=== PATIENT | female | born 1950 | race Caucasian/White ===

== ENCOUNTER 2019-01-23 09:11 | Inpatient (IN) | payer OTHER ==
--- NOTE | 2019-01-23 09:29 | PDOC ---
History of Present Illness - General History Source: Patient Exam Limitations: No Limitations - History of Present Illness Initial Comments: Mary Ellen Garcia is a 68 yo morbidly obese F w a pmh of NIDDM, gastric bypass in 2002, and 1 asymptomatic gallstone and kidney stone, who presents to the [facility] er because she has been experiencing epigastric and RUQ abdominal pain since 5: 30 am this morning. She states she also has been nauseous and vomited twice since she woke up. She describes her vomit as whitish in appearance. There was no blood or bile in the vomitus. Patient denies any fevers or chills. Said she had a normal bowel movement this morning without any diarrhea or constipation. Denies decreased PO intake or recent travel. She states she experienced this abdominal pain 3 days ago earlier this week but is unsure whether eating food precipitates this pain. Patient states she recently had both a colonoscopy and an endoscopy performed where they took out two polyps but was otherwise unremarkable. PCP: Mell Rosales GI: Dr. Greco PSH: Gastric bypass, hysterectomy, b/l knee replacements, hip replacement, tonsillectomy Allergies: NKA, NKDA Social Hx: Denies smoking, drinking, or other substance usage. <Juan Cardoso - Last Filed: 01/23/19 18:32> <Lluvia Frank - Last Filed: 01/24/19 21:57> - General Chief Complaint: Pain Stated Complaint: ABD PAIN Time Seen by Provider: 01/23/19 09:18 Past History <Juan Cardoso - Last Filed: 01/23/19 18:32> <Lluvia Frank - Last Filed: 01/24/19 21:57> - Past Medical History Allergies/Adverse Reactions: Allergies Allergy/AdvReac Type Severity Reaction Status Date / Time aspirin AdvReac Mild Verified 01/23/19 09:53 oxycodone [From Percocet] AdvReac Mild Verified 01/23/19 09:53 Home Medications: Ambulatory Orders Allopurinol 300 mg PO DAILY 01/23/19 Alprazolam [Xanax] 0.5 mg PO PRN PRN 01/23/19 Baclofen 10 mg PO PRN PRN 01/23/19 Celecoxib [Celebrex] 200 mg PO DAILY 01/23/19 Famotidine [Pepcid] 40 mg PO DAILY 01/23/19 Gabapentin 300 mg PO QID 01/23/19 Hydrocodone/Acetaminophen [Hydrocodone-Acetamin 5-325 mg] 1 each PO PRN PRN 07/09 Magnesium Oxide [Magnesium] 1,000 mg PO PRN PRN 01/23/19 Metformin HCl [Glucophage] 1,000 mg PO AM 01/23/19 Metformin HCl [Glucophage] 500 mg PO DAILY 01/23/19 Metoclopramide HCl [Reglan] 5 mg PO TID 01/23/19 Omeprazole 20 mg PO DAILY 01/23/19 Sitagliptin Phosphate [Januvia] 50 mg PO DAILY 01/23/19 Zolpidem Tartrate 10 mg PO HS PRN 01/23/19 Review of Systems - Review of Systems Able to Perform ROS?: Yes Comments:: CONSTITUTIONAL: Absent: fever, no chills, no fatigue EYES: Absent: visual changes ENT: Absent: ear pain, no sore throat CARDIOVASCULAR: Absent: chest pain, no palpitations RESPIRATORY: Absent: cough, no SOB GI: Present: Abdominal pain, nausea, vomiting Absent: no constipation, no diarrhea GENITOURINARY: Absent: dysuria, no frequency, no hematuria MUSKULOSKELETAL: Absent: back pain, no arthralgia, no myalgia SKIN: Absent: rash NEURO: Absent: headache <Juan Cardoso - Last Filed: 01/23/19 18:32> *Physical Exam - Physical Exam Comments: GENERAL: Morbidly obese. Well-appearing, well-nourished. No apparent distress. HEENT: Normocephalic, atraumatic. PERRL, EOM intact. CARDIOVASCULAR: Normal S1, S2. Regular rate and rhythm. PULMONARY: No evidence of respiratory distress. Lungs clear to auscultation bilaterally. No wheezing, rales or rhonchi. ABDOMEN: There is both epigastric and RUQ TTP. Abdomen is soft, non-distended, and has normal bowel sounds without rebound or guarding.\ EXTREMITIES: Normal ROM in all four extremities. No gross deformities. SKIN: Warm, dry. No rash NEUROLOGICAL: No focal neurological deficits. <Juan Cardoso - Last Filed: 01/23/19 18:32> - Vital Signs Last Vital Signs Temp Pulse Resp BP Pulse Ox 97.9 F 86 19 122/62 99 01/24/19 11:05 01/24/19 11:05 01/24/19 11:05 01/24/19 11:05 01/24/19 20:11 <Lluvia Frank - Last Filed: 01/24/19 21:57> ED Treatment Course - LABORATORY CBC & Chemistry Diagram: 01/23/19 09:52 01/23/19 09:52 - RADIOLOGY Radiograph Interpretation: CTAP: HISTORY PROVIDED: Rule out obstruction versus hernia. Sequential axial images were obtained from the domes of the diaphragms through the symphysis pubis following the administration of both oral and intravenous contrast material. The lung bases are clear. The liver is normal in size. It is markedly hypodense in texture consistent with diffuse fatty infiltration. No mass lesions are identified within the liver. There is a 1.7 cm calcification within the right renal pelvis at the UPJ consistent with a partially obstructing calculus. Additional 8 and 3 mm calculi are noted within the right collecting system. There are multiple calcifications within the left upper collecting system. The largest of these measures 1.9 cm within the pelvis. There is no evidence of left-sided hydronephrosis. There is a moderate degree of hydronephrosis associated with this stone. The spleen, pancreas and adrenal glands demonstrate no significant abnormalities. Small calculi/ sludge is identified within the gallbladder. There is no evidence of intra-abdominal or retroperitoneal lymphadenopathy or fluid collections. There is a fat-containing umbilical hernia present. There is no evidence of pneumoperitoneum, bowel obstruction or intraluminal abdominal abscess There is no CT evidence of acute appendicitis or diverticulitis. Examination of the pelvis demonstrates no evidence of pelvic masses, fluid collections or lymphadenopathy. There is no evidence of acute bony pathology. The patient is S/P total right hip replacement. IMPRESSION: 1. Extensive diffuse fatty infiltration of the liver. 2. 1.7 cm right UPJ calculus with moderate hydronephrosis. 3. Additional bilateral nephrolithiasis with no evidence of left-sided obstructive uropathy. 4. Possible cholelithiasis. 5. Fat-containing umbilical hernia. 6. No evidence of bowel obstruction. Please see above discussion. <Juan Cardoso - Last Filed: 01/23/19 18:32> - LABORATORY CBC & Chemistry Diagram: 01/24/19 06:20 01/24/19 06:20 - ADDITIONAL ORDERS Additional order review: 01/23/19 09:52 RBC 4.82 MCV 81.6 MCHC 31.6 L RDW 17.8 H MPV 9.5 Neutrophils % 85.4 H Lymphocytes % 8.1 Monocytes % 5.4 Eosinophils % 0.4 Basophils % 0.7 - Medications Given in the ED: ED Medications Discontinued Medications Generic Name Dose Route Start Last Admin Trade Name Freq PRN Reason Stop Dose Admin Acetaminophen 1,000 mg 01/23/19 09:33 01/23/19 10:22 Ofirmev Injection - IVPB 01/23/19 09:34 1,000 mg ONCE ONE Administration Acetaminophen 650 mg 01/23/19 16:57 01/24/19 04:44 Tylenol - PO 650 mg Q6H PRN Administration PAIN LEVEL 7 - 10 Acetaminophen/Codeine Phosphate 1 tab 01/23/19 17:22 01/23/19 23:31 Tylenol # 3 - PO 1 tab Q6H PRN Administration PAIN LEVEL 7 - 10 Al Hydroxide/Mg Hydroxide 30 ml 01/23/19 09:34 01/23/19 10:23 Mylanta Suspension - PO 01/23/19 09:35 30 ml ONCE ONE Administration Alprazolam 0.5 mg 01/23/19 22:00 01/23/19 21:56 Xanax - PO 0.5 mg BID YADIRA Administration Amlodipine Besylate 5 mg 01/23/19 18:00 01/23/19 18:32 Norvasc - PO 5 mg DAILY YADIRA Administration Famotidine/Sodium Chloride 20 mg in 50 mls @ 100 mls/hr 01/23/19 09:33 11:00 Pepcid 20 Mg Premixed Ivpb - IVPB 01/23/19 10:02 100 mls/hr ONCE ONE Administration Sodium Chloride 1,000 mls @ 1,000 mls/hr 01/23/19 09:33 01/23/19 10:22 Normal Saline - IV 01/23/19 10:32 1,000 mls/hr ASDIR STA Administration Levofloxacin 500 mg in 100 mls @ 100 mls/hr 01/23/19 14:34 01/23/19 15:33 Levaquin 500 Mg Premixed Ivpb - IVPB 01/23/19 15:33 100 mls/hr ONCE ONE Administration Protocol Levofloxacin 500 mg in 100 mls @ 100 mls/hr 01/24/19 08:00 01/24/19 07:39 Levaquin 500 Mg Premixed Ivpb - IVPB 100 mls/hr DAILY@0800 YADIRA Administration Protocol Sodium Chloride 1,000 mls @ 75 mls/hr 01/23/19 17:00 01/23/19 18:32 1/2 Normal Saline IV 75 mls/hr ASDIR YADIRA Administration Ondansetron HCl 4 mg 01/23/19 09:33 01/23/19 10:23 Zofran Injection IVPUSH 01/23/19 09:34 4 mg ONCE ONE Administration Sodium Chloride 1,000 ml 01/23/19 13:44 01/23/19 13:51 Normal Saline - IV 01/23/19 13:45 1,000 ml ONCE ONE Administration Tamsulosin HCl 0.4 mg 01/23/19 14:51 01/23/19 15:33 Flomax - PO 01/23/19 14:52 0.4 mg ONCE ONE Administration Zolpidem Tartrate 5 mg 01/23/19 17:12 01/23/19 23:32 Ambien - PO 5 mg HS PRN Administration INSOMNIA <Lluvia Frank - Last Filed: 01/24/19 21:57> Medical Decision Making - Medical Decision Making Mary Ellen Garcia is a 68 yo morbidly obese F w a pmh of NIDDM, gastric bypass in 2002, and 1 asymptomatic gallstone and kidney stone, who presents to the [facility] er because she has been experiencing epigastric and RUQ abdominal pain since 5: 30 am this morning. She states she also has been nauseous and vomited twice since she woke up. She describes her vomit as whitish in appearance. There was no blood or bile in the vomitus. Patient denies any fevers or chills. Said she had a normal bowel movement this morning without any diarrhea or constipation. Denies decreased PO intake or recent travel. She states she experienced this abdominal pain 3 days ago earlier this week but is unsure whether eating food precipitates this pain. Patient states she recently had both a colonoscopy and an endoscopy performed where they took out two polyps but was otherwise unremarkable. Vital Signs Temp Pulse Resp BP Pulse Ox 98.4 F 73 20 178/79 H 99 01/23/19 09:15 01/23/19 09:15 01/23/19 09:15 01/23/19 09:15 01/23/19 09:15 DDx IBNLT: biliary colic vs cholecystitis, renal colic, UTI/Pylo, PUD/GERD, gastritis, pancreatitis, gastroenteritis, electrolyte/metabolic disturbance, ACS /ND Plan: Labs, Urine, IV hydration, analgesia, bedside POCUS, ekg, re-assess EKG: NS rate of 75, Wide complex QRS of 126, LAD, non-specific intraventricular block, no hypertrophy, downsloping ST segments in 1 and aVL with TWI's in 1 and aVL, inferior infarct age undetermined, anterolateral infarct age undetermined. no other abnormal TWI's. All these are unchanged from 04/09 - Called up patient's primary physician and had an old EKG from 04/01/18 which shows an almost identical EKG. Labs: leukocytosis, VINH Urine: 3+ blood, no LE or nitrite US: unremarkable. Limited exam secondary to habitus. CTAP: Right sided 1.7 cm obstructing kidney stone with hydronephritis Re-assessment: Patient's pain is well controlled after tylenol. - Patient has an VINH with an obstructing stone Urology consult: Dr. Lundberg - is aware of patient and requests for patient to be NPO after midnight. Levaquin for Abx. Will try to stent the patient tmrw AM Disposition: Admit to hospital <Juan Cardoso - Last Filed: 01/23/19 18:32> Discharge - Discharge Information Problems reviewed: Yes - Admission Yes <Juan Cardoso - Last Filed: 01/23/19 18:32> - Admission Yes <Lluvia Frank - Last Filed: 01/24/19 21:57> - Discharge Information Clinical Impression/Diagnosis: Hydronephrosis with renal calculous obstruction Condition: Stable
[2019-01-23 09:32] VITALS: BMI 52.9
[2019-01-23] MEDS ORDERED: ACETAMINOPHEN 1000 MG/100 ML VIAL (NON FORMULARY) IVPB ONE (09:33)
[2019-01-23] MEDS ORDERED: SODIUM CHLORIDE 1,000 ML IV STA (09:33)
[2019-01-23] MEDS ORDERED: FAMOTIDINE 20 MG/50 ML IVPB 20 MG/50 ML MG IVPB ONE ×2 (09:33→10:54)
[2019-01-23] MEDS ORDERED: ONDANSETRON 4 MG/2 ML VIAL IVPUSH ONE (09:33)
[2019-01-23] MEDS ORDERED: MAG HYDROX/AL HYDROX/SIMETH -MYLANTA- ORAL SUSPENSION PO ONE (09:34)
--- NOTE | 2019-01-23 09:38 | PDOC ---
Attending Attestation - Resident Resident Name: Juan Cardoso - ED Attending Attestation I have performed the following: I have examined & evaluated the patient, The case was reviewed & discussed with the resident, I agree w/resident's findings & plan - HPI HPI: 01/23/19 09:41 68 YOF with obesity, NIDDM, nephrolithiasis, gallstone, samreen en y gastric bypass (2002) presenting with acute onset of diffuse abdominal pain since this morning at 5am that woke her up from sleep. AP described as gnawing, that radiates from lower abdomen to upper abdomen and back. 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 ate artichoke last night yesterday afternoon had onion rings and mac and cheese no v/d, f/c. no sick contacts or travel no prior history of similar sx. last EGD and colonoscopy ~2 months ago, which was unremarkable except for polyps. 01/23/19 10:04 - Physicial Exam PE: 01/23/19 09:41 Agree with the resident's HPI and PE as documented in the electronic medical record. NAD, well appearing, EOMI, PERRL, dry membranes, nl conjunctiva, anicteric; neck supple. lungs clear, RRR, abdomen soft morbidly obese, nontender. neg juarez's, neg mcburney's point tenderness, no cvat. Back nontender. THOMPSON x4, no focal neuro deficits. No peripheral edema. normal color for ethnicity, WWP. 01/23/19 09:41 01/23/19 10:11 - Medical Decision Making 01/23/19 09:41 See HPI for details. Prior notes reviewed, including admissions, discharges and consultations. Vital signs reviewed, wnl. Vital Signs Temp Pulse Resp BP Pulse Ox 98.4 F 73 20 178/79 H 99 01/23/19 09:15 01/23/19 09:15 01/23/19 09:15 01/23/19 09:15 01/23/19 09:15 DDx abdominal pain: Renal colic, biliary colic, metabolic/electrolyte derangements. GERD, PUD, esophageal spasm, pancreatitis, hepatitis, constipation , colitis, gastroenteritis, cholecystitis, UTI, pyelonephritis, ileus, SBO, medication side effect, hernia, appendicitis, diverticulitis internal hernia, mesenteric ischemia, mesenteric adenitis. laboratory results and imaging reviewed, basic labs and lytes wnl, LFTs/lipase_wnl UA_neg for infection, small blood Cardiac panel_neg, reassuring EKG normal sinus rhythm at 75 bpm, left axis deviation., no interval abnormalities, wide QRS, partial LBBB, poor R wave progression, ST and T wave segments and morphology normal. Nonspecific T wave abnormalities - no prior visits ED course -interventions: IVF, GI cocktail, analgesia, reassess - pain out of proportion to exam, screening lactic CT A/p PO and IV contrast to assess for intra abdominal infection/inflammation. CT scan with IV contrast indicated The patient has been educated on the risks and benefits of exam including nephrotoxicity/renal injury and organ failure. Hydration with IV fluids Consent form signed for the iodinated contrast. GFR 44-31 can receive IV contrast CT results: rt UPJ stone 1.7 mm with moderate hydro IVF, flomax for prox stone uro cs Dr Lundberg evp operations admit for obstructed stone/hydro, likely operative management admit to primary doctor 01/24/19 21:57 Heart Score/ECG Review #1 ECG reviewed & interpreted by me at: 09:30 General ECG Interpretation: Sinus Rhythm, Normal Rate, Normal Intervals Compared to previous ECG there are: Previous ECG unavail 01/23/19 09:43 EKG normal sinus rhythm at 75 bpm, left axis deviation., no interval abnormalities, wide QRS, partial LBBB, poor R wave progression, ST and T wave segments and morphology normal. Nonspecific T wave abnormalities - no prior visits
[2019-01-23 10:14] LABS: BASO % 0.7 % (0-2.0); EOS % 0.4 % (0-4.5); HEMATOCRIT 39.3 % (32.4-45.2); HEMOGLOBIN 12.4 GM/dL (10.7-15.3); LYMPH % 8.1 % (8-40); MCH 25.8 pg (25.7-33.7); MCHC 31.6 g/dl (32.0-36.0); MEAN CELL VOLUME 81.6 fl (80-96); MEAN PLT VOLUME 9.5 fl (7.5-11.1); MONO % 5.4 % (3.8-10.2); NEUT % 85.4 % (42.8-82.8); PLATELET COUNT 278 K/MM3 (134-434); RBC 4.82 M/mm3 (3.60-5.2); RDW 17.8 % (11.6-15.6); WHITE BLOOD COUNT 11.7 K/mm3 (4.0-10.0)
[2019-01-23] MEDS ORDERED: MAG HYDROX/AL HYDROX/SIMETH 30 ML UNIT-DOSE CUP ONE (10:15)
[2019-01-23] MEDS ORDERED: ONDANSETRON 4 MG/2 ML VIAL ONE (10:15)
[2019-01-23 10:49] LABS: ALBUMIN 3.8 g/dl (3.4-5.0); BILIRUBIN,TOTAL 0.7 mg/dL (0.2-1); BLOOD UREA NITROGEN 20.4 mg/dL (7-18); CALCIUM 8.9 mg/dL (8.5-10.1); CREATININE 1.4 mg/dL (0.55-1.3); TOT PROT 6.7 g/dl (6.4-8.2)
[2019-01-23 11:53] LABS: EPI CELLS 12.7 /HPF (0-5/HPF); URINE APPEARANCE CLOUDY; URINE BACTERIA 289.3 /hpf (NEGATIVE); URINE BILIRUBIN NEGATIVE (NEGATIVE); URINE COLOR YELLOW; URINE GLUCOSE (UA) NEGATIVE (NEGATIVE); URINE KETONE NEGATIVE (NEGATIVE); URINE LEUK ESTERASE NEGATIVE (NEGATIVE); URINE NITRITE NEGATIVE (NEGATIVE); URINE PROTEIN 2+ (NEGATIVE); URINE UROBILINOGEN 0.2 mg/dL (0.2-1.0); URINE WBC 7 /hpf (0-5)
[2019-01-23] MEDS ORDERED: KETOROLAC TROMETHAMINE 30 MG/1 ML VIAL IVPUSH ONE (11:55)
[2019-01-23 13:03] LABS: HYALINE CASTS 0 /lpf (0-8); YEAST NONE SEEN (NEGATIVE)
[2019-01-23] MEDS ORDERED: SODIUM CHLORIDE 0.9% 500 ML INFUS.BAG IV ONE (13:44)
--- NOTE | 2019-01-23 14:34 | EKG ---
Test Reason : Blood Pressure : / mmHG Vent. Rate : 075 BPM Atrial Rate : 075 BPM P-R Int : 178 ms QRS Dur : 126 ms QT Int : 392 ms P-R-T Axes : 057 -45 115 degrees QTc Int : 437 ms POOR DATA QUALITY, INTERPRETATION MAY BE ADVERSELY AFFECTED NORMAL SINUS RHYTHM LEFT AXIS DEVIATION NON-SPECIFIC INTRA-VENTRICULAR CONDUCTION BLOCK INFERIOR INFARCT , AGE UNDETERMINED ANTEROLATERAL INFARCT , AGE UNDETERMINED ABNORMAL ECG NO PREVIOUS ECGS AVAILABLE Confirmed by SUSAN ALMARAZ MD ([id number]) on 01/23/2019 2:34:10 PM Referred By: Confirmed By:SUSAN ALMARAZ MD
[2019-01-23] MEDS ORDERED: TAMSULOSIN HCL 0.4 MG CAP PO ONE (14:51)
[2019-01-23] MEDS ORDERED: TAMSULOSIN HCL 0.4 MG CAP ONE (15:10)
[2019-01-23] MEDS ORDERED: oxyCODONE HCL 5 MG TABLET PO PRN (16:57)
[2019-01-23] MEDS ORDERED: ACETAMINOPHEN 325 MG TABLET (FP) PO PRN (16:57)
[2019-01-23] MEDS ORDERED: SODIUM CHLORIDE 0.45% 1,000 ML IV SCH (17:00)
[2019-01-23] MEDS ORDERED: ONDANSETRON 4 MG/2 ML VIAL IVPB PRN (17:02)
--- NOTE | 2019-01-23 17:08 | HP ---
Admitting History and Physical - Admission History Source: Patient Limitations to Obtaining History: No Limitations - Past Medical History Cardiovascular: Yes: Other (left bundle branch block) Renal/: Yes: Renal Calculi (known history-has had transcutaneous stone removal over 15 yrs ago) Musculoskeletal: Yes: Chronic low back pain, Other (ostearthritis) Endocrine: Yes: Diabetes Mellitus, Other (obesity) - Past Surgical History Past Surgical History: Yes: Cataract Removal (bilateral 2016), Hysterectomy ( BSO 1995 endometrial hyperplasia), Joint Replacement (left knee 2014 right total hip replacement 2014-postop dropped foot), Tonsillectomy Additional Past Surgical History: Gastric bypass surgery 2001 - Advance Directives Advance Directives: Yes: DNR - Smoking History Smoking history: Former smoker Have you smoked in the past 12 months: No If you are a former smoker, when did you quit?: over 20 yrs ago - Alcohol/Substance Use Hx Alcohol Use: No - Social History Usual Living Arrangement: Yes: Alone ADL: Independent History of Recent Travel: No Home Medications - Allergies Allergies/Adverse Reactions: Allergies Allergy/AdvReac Type Severity Reaction Status Date / Time aspirin AdvReac Mild Verified 01/23/19 09:53 oxycodone [From Percocet] AdvReac Mild Verified 01/23/19 09:53 - Home Medications Home Medications: Ambulatory Orders Allopurinol 300 mg PO DAILY 01/23/19 Alprazolam [Xanax] 0.5 mg PO PRN PRN 01/23/19 Baclofen 10 mg PO PRN PRN 01/23/19 Celecoxib [Celebrex] 200 mg PO DAILY 01/23/19 Famotidine [Pepcid] 40 mg PO DAILY 01/23/19 Gabapentin 300 mg PO QID 01/23/19 Hydrocodone/Acetaminophen [Hydrocodone-Acetamin 5-325 mg] 1 each PO PRN PRN 07/09 Magnesium Oxide [Magnesium] 1,000 mg PO PRN PRN 01/23/19 Metformin HCl [Glucophage] 1,000 mg PO AM 01/23/19 Metformin HCl [Glucophage] 500 mg PO DAILY 01/23/19 Metoclopramide HCl [Reglan] 5 mg PO TID 01/23/19 Omeprazole 20 mg PO DAILY 01/23/19 Sitagliptin Phosphate [Januvia] 50 mg PO DAILY 01/23/19 Zolpidem Tartrate 10 mg PO HS PRN 01/23/19 Review of Systems - Review of Systems Constitutional: denies: Fever, Loss of Appetite Eyes: reports: No Symptoms Cardiovascular: reports: No Symptoms Respiratory: reports: No Symptoms Gastrointestinal: reports: Abdominal Pain, Nausea Genitourinary: reports: Flank Pain. denies: Burning, Discharge, Dysuria Musculoskeletal: reports: Back Pain, Joint Pain Integumentary: reports: No Symptoms Neurological: reports: No Symptoms, Other (chronic right foot drop) Endocrine: reports: No Symptoms Hematology/Lymphatic: reports: No Symptoms Psychiatric: reports: No Symptoms Physical Examination Vital Signs: Vital Signs Temperature 98 F 01/23/19 16:01 Pulse Rate 77 01/23/19 16:01 Respiratory Rate 18 01/23/19 16:01 Blood Pressure 157/71 01/23/19 16:01 O2 Sat by Pulse Oximetry (%) 98 01/23/19 16:01 Constitutional: Yes: Well Nourished, Obese, Pallor Eyes: Yes: Conjunctiva Clear, EOM Intact HENT: Yes: Normocephalic Neck: Yes: Trachea Midline Cardiovascular: Yes: Regular Rate and Rhythm Respiratory: Yes: CTA Bilaterally Gastrointestinal: Yes: Normal Bowel Sounds, Soft, Abdomen, Obese. No: Tenderness, Rebound Renal/: Yes: CVA Tenderness - Right (very minimal) Musculoskeletal: Yes: Back Pain Extremities: Yes: WNL Edema: No Peripheral Pulses WNL: Yes Integumentary: Yes: WNL Neurological: Yes: WNL, Other (chr right foot drop otherwise intact) Psychiatric: Yes: WNL Labs: CBC, BMP 01/23/19 09:52 01/23/19 09:52 repeat lactic acid 1 Imaging - Results Cat Scan: Report Reviewed (1.7 cm right upj calculus with hydronephrosis) Problem List - Problems (1) Diabetes mellitus Code(s): E11.9 - TYPE 2 DIABETES MELLITUS WITHOUT COMPLICATIONS Qualifiers: Diabetes mellitus type: type 2 Diabetes mellitus intermodal dispatcher insulin use: without intermodal dispatcher use Diabetes mellitus complication status: without complication Qualified Code(s): E11.9 - Type 2 diabetes mellitus without complications (2) Obesity Code(s): E66.9 - OBESITY, UNSPECIFIED Qualifiers: Obesity type: due to excess calories Body mass index: BMI 50.0-59.9 (3) Hypertension Code(s): I10 - ESSENTIAL (PRIMARY) HYPERTENSION Qualifiers: Hypertension type: essential hypertension Qualified Code(s): I10 - Essential (primary) hypertension (4) Hydronephrosis with renal calculous obstruction Code(s): N13.2 - HYDRONEPHROSIS WITH RENAL AND URETERAL CALCULOUS OBSTRUCTION Assessment/Plan npo past midnight for cysto and stent placement iv levaquin pain control iv fluids add norvasc for bp control
[2019-01-23] MEDS ORDERED: ZOLPIDEM TARTRATE 5 MG TABLET PO PRN (17:12)
[2019-01-23] MEDS ORDERED: amLODIPine BESYLATE 5 MG TABLET (FP) PO SCH (18:00)
[2019-01-23] MEDS: ACETAMINOPHEN WITH CODEINE 300MG/30MG TABLET PO PRN ×2 (18:28→23:31)
[2019-01-23] MEDS ORDERED: ALPRAZolam 0.25 MG TABLET PO SCH (22:00)
[2019-01-24 07:03] LABS: BASO % 0.4 % (0-2.0); EOS % 0.8 % (0-4.5); HEMATOCRIT 34.8 % (32.4-45.2); HEMOGLOBIN 11.3 GM/dL (10.7-15.3); MCH 26.5 pg (25.7-33.7); MCHC 32.5 g/dl (32.0-36.0); MEAN CELL VOLUME 81.6 fl (80-96); MEAN PLT VOLUME 9.3 fl (7.5-11.1); MONO % 9.3 % (3.8-10.2); NEUT % 77.5 % (42.8-82.8); PLATELET COUNT 248 K/MM3 (134-434); RBC 4.26 M/mm3 (3.60-5.2); RDW 18.1 % (11.6-15.6); WHITE BLOOD COUNT 10.4 K/mm3 (4.0-10.0)
[2019-01-24] MEDS ORDERED: MIDAZOLAM HCL 2 MG/2 ML SINGLE DOSE VIAL ONE ×2 (08:04→08:33)
[2019-01-24 08:05] LABS: ALBUMIN 3.4 g/dl (3.4-5.0); BILIRUBIN,TOTAL 0.7 mg/dL (0.2-1); BLOOD UREA NITROGEN 18.8 mg/dL (7-18); CALCIUM 8.8 mg/dL (8.5-10.1); CREATININE 1.6 mg/dL (0.55-1.3); POTASSIUM 4.4 mmol/L (3.5-5.1)
[2019-01-24] MEDS ORDERED: SUCCINYLCHOLINE CHLORIDE 200 MG/10 ML SYRINGE ONE (08:05)
[2019-01-24] MEDS ORDERED: PROPOFOL 20 ML ONE ×2 (08:05)
--- NOTE | 2019-01-24 08:10 | CON.GU ---
Consult - History of Present Illness History of Present Illness: 68 yo female with prior h/o nephrolithiasis, now admitted with rt renal colic secondary to large obstructing rt UPJ stone. CT with 1.7cm rt UPJ stone with hydronephrosis. Had rt perc nephrolithotomy several yr ago at [facility] - Past Medical History Cardio/Vascular: Yes: Other (left bundle branch block) Renal/: Yes: Renal Calculi (known history-has had transcutaneous stone removal over 15 yrs ago) Musculoskeletal: Yes: Chronic low back pain, Other (ostearthritis) Endocrine: Yes: Diabetes Mellitus, Other (obesity) - Past Surgical History Past Surgical History: Yes: Cataract Removal (bilateral 2016), Hysterectomy ( BSO 1995 endometrial hyperplasia), Joint Replacement (left knee 2014 right total hip replacement 2014-postop dropped foot), Tonsillectomy - Alcohol/Substance Use Hx Alcohol Use: No - Smoking History Smoking history: Former smoker Have you smoked in the past 12 months: No If you are a former smoker, when did you quit?: over 20 yrs ago - Social History ADL: Independent History of Recent Travel: No Home Medications - Allergies Allergies/Adverse Reactions: Allergies Allergy/AdvReac Type Severity Reaction Status Date / Time aspirin AdvReac Mild Verified 01/23/19 09:53 oxycodone [From Percocet] AdvReac Mild Verified 01/23/19 09:53 - Home Medications Home Medications: Ambulatory Orders Allopurinol 300 mg PO DAILY 01/23/19 Alprazolam [Xanax] 0.5 mg PO PRN PRN 01/23/19 Baclofen 10 mg PO PRN PRN 01/23/19 Celecoxib [Celebrex] 200 mg PO DAILY 01/23/19 Famotidine [Pepcid] 40 mg PO DAILY 01/23/19 Gabapentin 300 mg PO QID 01/23/19 Hydrocodone/Acetaminophen [Hydrocodone-Acetamin 5-325 mg] 1 each PO PRN PRN 07/09 Magnesium Oxide [Magnesium] 1,000 mg PO PRN PRN 01/23/19 Metformin HCl [Glucophage] 1,000 mg PO AM 01/23/19 Metformin HCl [Glucophage] 500 mg PO DAILY 01/23/19 Metoclopramide HCl [Reglan] 5 mg PO TID 01/23/19 Omeprazole 20 mg PO DAILY 01/23/19 Sitagliptin Phosphate [Januvia] 50 mg PO DAILY 01/23/19 Zolpidem Tartrate 10 mg PO HS PRN 01/23/19 Review of Systems - Review of Systems Genitourinary: reports: Flank Pain Physical Exam- Vital Signs: Vital Signs Temperature 97.7 F 01/24/19 06:40 Pulse Rate 84 01/24/19 06:40 Respiratory Rate 18 01/24/19 06:40 Blood Pressure 130/88 01/24/19 06:40 O2 Sat by Pulse Oximetry (%) 98 01/24/19 05:00 Gastrointestinal: Yes: WNL Kidneys: Yes: FLank Pain Right Pelvis: Yes: WNL Labs: CBC, BMP 01/24/19 06:20 01/24/19 06:20 Imaging - Results Cat Scan: Image Reviewed Problem List - Problems (1) Right kidney stone Assessment/Plan: in light of large stone burden, elevated WBC, will plan for cysto/stent placement today. Will need lithotripsy at separate sitting Code(s): N20.0 - CALCULUS OF KIDNEY
[2019-01-24] MEDS ORDERED: ePHEDrine SULFATE 50 MG/1 ML AMPULE ONE (08:33)
[2019-01-24] MEDS ORDERED: PHENYLEPHRINE HCL 10 MG/1 ML SINGLE DOSE VIAL ONE (08:43)
--- NOTE | 2019-01-24 08:50 | OP ---
Operative Note - Note: Operative Date: 01/24/19 Pre-Operative Diagnosis: obstructing R UPJ stone Operation: cysto/rt stent placement Post-Operative Diagnosis: Same as Pre-op Surgeon: Anshu Covington Anesthesiologist/BANK REPRESENTATIVE: Josee Luis MD Anesthesia: Spinal Estimated Blood Loss (mls): 0 Drains & Tubes with Location: 7fr, 22cm stent Operative Report Dictated: Yes
[2019-01-24] MEDS ORDERED: ONDANSETRON 4 MG/2 ML VIAL IVPB PRN (09:12)
[2019-01-24] MEDS ORDERED: ACETAMINOPHEN 325 MG TABLET (FP) PO PRN (09:12)
[2019-01-24] MEDS ORDERED: SODIUM CHLORIDE 0.45% 1,000 ML IV SCH (09:12)
[2019-01-24] MEDS ORDERED: ZOLPIDEM TARTRATE 5 MG TABLET PO PRN (09:12)
--- NOTE | 2019-01-24 10:29 | OP ---
DATE OF OPERATION: 01/24/2019 PREOPERATIVE DIAGNOSIS: Obstructing right kidney stone. POSTOPERATIVE DIAGNOSIS: Obstructing right kidney stone. PROCEDURE: Cystoscopy, retrograde pyelogram, right renal stent placement. SURGEON: Anshu Covington MD INDICATIONS: Patient is a 68-year-old female with a history of recurrent nephrolithiasis now with obstructing 1.7-cm right UPJ stone with elevated white blood cell count. She is taken to the OR for cystoscopy, right renal stent placement with planned lithotripsy at a later date. DESCRIPTION OF PROCEDURE: Patient taken to the OR. Placed supine on the table. With cardiac monitoring administered, spinal anesthetic was given. She was prepped and draped in the dorsal lithotomy position. The 22-sheath cystoscope was inserted to the urethra without difficulty and into the bladder. The bladder was visualized. No tumors or stones noted in the bladder. Attention was turned to the right ureteral orifice. This was intubated with a ureteral catheter. Contrast injected for retrograde pyelogram. There was hydroureteronephrosis to the level of the UPJ. A guidewire was negotiated beyond UPJ into the right renal pelvis. Over the guidewire, a 7-Brazilian 22-cm double pigtail stent was then advanced in a monorail fashion. Fluoroscopy confirmed the stent to be in good position. Patient was awoken from anesthesia and transferred to recovery in stable condition. There were no complications. Estimated blood loss was minimal. Sulma [id number]
[2019-01-24] MEDS: amLODIPine BESYLATE 5 MG TABLET (FP) PO SCH (11:07)
[2019-01-24] MEDS: ALPRAZolam 0.25 MG TABLET PO SCH ×2 (11:07→21:10)
[2019-01-24] MEDS ORDERED: ONDANSETRON 4 MG/2 ML VIAL IVPUSH PRN (11:12)
[2019-01-24] MEDS: ACETAMINOPHEN WITH CODEINE 300MG/30MG TABLET PO PRN (14:40)
[2019-01-25] MEDS: ACETAMINOPHEN WITH CODEINE 300MG/30MG TABLET PO PRN (03:18)
[2019-01-25 05:47] VITALS: BP 126/60; PULSE 82; TEMP 98.1
[2019-01-25] MEDS ORDERED: INSULIN (NOVOLOG) ASPART 100 UNITS/ML 10ML VIAL ONE (06:40)
[2019-01-25] MEDS ORDERED: INSULIN SLIDING SCALE (NOVOLOG) 1 VIAL SQ SCH ×2 (07:00)
[2019-01-25 07:46] LABS: BASO % 0.7 % (0-2.0); HEMATOCRIT 34.2 % (32.4-45.2); HEMOGLOBIN 10.9 GM/dL (10.7-15.3); LYMPH % 17.4 % (8-40); MCH 25.9 pg (25.7-33.7); MCHC 31.8 g/dl (32.0-36.0); MEAN CELL VOLUME 81.6 fl (80-96); MEAN PLT VOLUME 9.2 fl (7.5-11.1); MONO % 8.2 % (3.8-10.2); NEUT % 72.7 % (42.8-82.8); PLATELET COUNT 255 K/MM3 (134-434); RBC 4.18 M/mm3 (3.60-5.2); RDW 18.2 % (11.6-15.6); WHITE BLOOD COUNT 7.4 K/mm3 (4.0-10.0)
[2019-01-25 08:11] LABS: ALBUMIN 3.3 g/dl (3.4-5.0); BILIRUBIN,TOTAL 0.8 mg/dL (0.2-1); BLOOD UREA NITROGEN 17.2 mg/dL (7-18); CALCIUM 8.6 mg/dL (8.5-10.1); CREATININE 1.4 mg/dL (0.55-1.3); POTASSIUM 4.3 mmol/L (3.5-5.1); TOT PROT 5.6 g/dl (6.4-8.2)
--- NOTE | 2019-01-25 08:18 | DS ---
Physical Examination Vital Signs: Vital Signs Temperature 98.1 F 01/25/19 05:45 Pulse Rate 82 01/25/19 05:45 Respiratory Rate 19 01/25/19 05:45 Blood Pressure 126/60 01/25/19 05:45 O2 Sat by Pulse Oximetry (%) 99 01/24/19 20:11 Constitutional: Yes: Well Nourished, Obese Eyes: Yes: EOM Intact HENT: Yes: Normocephalic Neck: Yes: Trachea Midline Cardiovascular: Yes: Regular Rate and Rhythm Respiratory: Yes: CTA Bilaterally Gastrointestinal: Yes: Normal Bowel Sounds, Abdomen, Obese Edema: No Peripheral Pulses WNL: No Neurological: Yes: WNL Labs: CBC, BMP 01/25/19 06:55 01/25/19 06:55 Discharge Summary Problems reviewed: Yes Reason For Visit: HYDRONEPHROSIS W URINARY OBST DUE TO RENAL CALC Current Active Problems Diabetes mellitus (Acute) Hydronephrosis with renal calculous obstruction (Acute) Hypertension (Acute) Obesity (Acute) Right kidney stone (Acute) Hospital Course: admitted for abd pain CT abd showed obstructing R UPJ stone Operation: on 01.24.19 cysto/rt stent placement tolerated procedure well ambulatory, voiding freely, can dc home with outpt urology follow up in 1 week for possible lithotrypsy. Condition: Stable - Instructions Diet, Activity, Other Instructions: drink plenty water follow up with and dr Rosales next week Referrals: Anshu Covington MD [Staff Physician] - Disposition: HOME - Home Medications Comprehensive Discharge Medication List: Ambulatory Orders Allopurinol 300 mg PO DAILY 01/23/19 Alprazolam [Xanax] 0.5 mg PO PRN PRN 01/23/19 Baclofen 10 mg PO PRN PRN 01/23/19 Famotidine [Pepcid] 40 mg PO DAILY 01/23/19 Gabapentin 300 mg PO QID 01/23/19 Hydrocodone/Acetaminophen [Hydrocodone-Acetamin 5-325 mg] 1 each PO PRN PRN 07/09 Magnesium Oxide [Magnesium] 1,000 mg PO PRN PRN 01/23/19 Metformin HCl [Glucophage] 1,000 mg PO AM 01/23/19 Omeprazole 20 mg PO DAILY 01/23/19 Sitagliptin Phosphate [Januvia] 50 mg PO DAILY 01/23/19 Zolpidem Tartrate 10 mg PO HS PRN 01/23/19 Acetaminophen [Tylenol .Regular Strength -] 650 mg PO Q6H PRN tablet 01/25/19 Amlodipine Besylate [Norvasc -] 5 mg PO DAILY #30 tablet 01/25/19 Levofloxacin [Levaquin] 500 mg PO DAILY #7 tablet 01/25/19 Prescription Drug Monitoring Program (I-STOP) results: I-STOP not reviewed
[2019-01-25] MEDS: ALPRAZolam 0.25 MG TABLET PO SCH (09:55)
[2019-01-25] MEDS: amLODIPine BESYLATE 5 MG TABLET (FP) PO SCH (09:56)
== END 2019-01-25 19:15 | disposition home or self-care (01) | DRG 660 ==
LOC: JER 09:11 → JERBED 13:38 → J7W 16:26
PROVIDERS: ADMIT Internal Medicine; ATTEND Internal Medicine
PROC: 0T768DZ Dilation of Right Ureter with Intraluminal Device, Via Natural or Artificial Opening Endoscopic (ICD-10-PCS; principal; 2019-01-24 08:00)
PROC: BT1BZZZ Fluoroscopy of Bladder and Urethra (ICD-10-PCS; 2019-01-24 08:00)
DX: N13.2 Hydronephrosis with renal and ureteral calculous obstruction (principal); Z68.43 Body mass index [BMI] 50.0-59.9, adult; E66.01 Morbid (severe) obesity due to excess calories; I10 Essential (primary) hypertension; I44.7 Left bundle-branch block, unspecified; E11.9 Type 2 diabetes mellitus without complications; M54.5 Low back pain; Z96.653 Presence of artificial knee joint, bilateral; Z98.84 Bariatric surgery status; Z96.641 Presence of right artificial hip joint
CPT/HCPCS: 36415; 74177-TC; 76000-TC-FY; 80053; 81003; 82962; 83605; 83690; 84484; 85025; 87040; 87086; 93005; 93010; 94760; 99285-25; J0131; J7030

== ENCOUNTER 2019-02-13 06:20 | Day surgery (SDC) | payer OTHER ==
[2019-02-12 16:49] VITALS: BMI 50.6
[2019-02-13] MEDS ORDERED: GENTAMICIN SO4 80 MG/2 ML VIAL ONE (08:59)
[2019-02-13] MEDS ORDERED: MIDAZOLAM HCL 2 MG/2 ML SINGLE DOSE VIAL ONE ×5 (09:12→10:23)
[2019-02-13] MEDS ORDERED: ceFAZolin 2 GRAM PREMIX BAG IVPB ONE (09:35)
[2019-02-13] MEDS ORDERED: GENTAMICIN 80MG PREMIX BAG IVPB ONE ×2 (09:35)
[2019-02-13] MEDS ORDERED: FUROSEMIDE 40 MG/4 ML INJECTABLE VIAL ONE (09:57)
[2019-02-13] MEDS ORDERED: oxyCODONE HCL 5 MG TABLET PO PRN (10:41)
--- NOTE | 2019-02-13 10:42 | OP ---
Operative Note - Note: Operative Date: 02/13/19 Pre-Operative Diagnosis: large rt K stone Operation: laser litho/stent Post-Operative Diagnosis: Same as Pre-op Surgeon: Anshu Covington Anesthesia: General Drains & Tubes with Location: 8fr, 22cm stent
[2019-02-13] MEDS ORDERED: ELECTROLYTE-148 SOLN 1,000 ML IV SCH (10:45)
--- NOTE | 2019-02-13 15:43 | OP ---
DATE OF OPERATION: DATE OF DICTATION: 02/13/2019 PREOPERATIVE DIAGNOSIS: Large right kidney stone. Right ureteropelvic junction obstruction. POSTOPERATIVE DIAGNOSIS: Large right kidney stone. Right ureteropelvic junction obstruction. PROCEDURE: Cystoscopy, stent removal right ureteroscopy, laser lithotripsy, and stent placement. SURGEON: Federico Richards M.D. INDICATION: Patient is a 68-year-old female who had stent placement several weeks ago to an obstructing 2-cm right UPJ stone. 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 At that point she had a stent placed, and then she is in the OR now for treatment of stones. This is a large stone burden, she may require a staged procedure to evacuate the stone burden. She agreed to undergo a uteroscope, laser lithotripsy first as an initial procedure. DESCRIPTION OF PROCEDURE: The patient was taken to the OR and placed supine on the operating table. After cardiac monitoring initiated and general anesthesia established, she was prepped and draped in the dorsal lithotomy position. She was given 2 g Ancef and 1 mL gentamicin. The rigid cystoscope was inserted into the urethra and then into the bladder without difficulty. Attention turned to right ureteral orifice. This was intubated with a catheter. A guidewire was placed alongside the catheter and entered right renal pelvis. The stent was then removed, and a catheter was advanced, and the 2nd guidewire was advanced into renal pelvis. Contrast was also injected for retrograde pyelogram, and there was besides the large stone noted in the right kidney, there was also a UPJ stenosis noted. A flexible ureteroscope was then advanced over the guidewire into the right kidney, and then the large stone was seen. Using the 365 micron laser fiber, the stone was pulverized in fine dust and 1-2 mm fragments until the entire stone burden was removed. It was fragmented. The ureteroscope was then removed, and an 8 Danish, 22-cm double pigtail stent was then advanced in a monorail fashion. Fluoroscopy confirmed stent to be in good position. Patient then awoken from anesthesia and transferred to the recovery room in stable condition. There were no complications. Estimated blood loss was minimal. FEDERICO RICHARDS M.D. [id number]
[2019-02-13 16:37] VITALS: TEMP 97.8
[2019-02-13 16:43] VITALS: BP 139/84; PULSE 85
--- NOTE | 2019-02-17 17:45 | PATH ---
Surgical Pathology Report Patient Name: BETTY PORTER Med. Rec. #: [id number] /Age/Gender: 1950 (Age: 68) / F Account: [id number] Location: [facility] SURGICAL Taken: 02/13/2019 Received: 02/13/2019 Reported: 02/17/2019 Physicians: Anshu Covington M.D. Specimen(s) Received REMOVED STENT Clinical History Kidney stone right Final Diagnosis STENT, REMOVAL: URETERAL STENT. MACROSCOPIC DIAGNOSIS. Electronically Signed Raeann Hernandes M.D. Gross Description Received fresh labeled "removed stent," is a 33 cm in length blue-green, coiled portion of tubing, consistent with a ureteral stent. No soft tissue is present. No sections are submitted, gross only. /02/14/2019 [facility]02/14/2019
== END 2019-02-13 14:35 | disposition home or self-care (01) ==
LOC: JASU-SURG 06:20
PROVIDERS: ATTEND Urology
PROC: 0TF38ZZ Fragmentation in Right Kidney Pelvis, Via Natural or Artificial Opening Endoscopic (ICD-10-PCS; principal; 2019-02-13 08:30)
PROC: 0T768DZ Dilation of Right Ureter with Intraluminal Device, Via Natural or Artificial Opening Endoscopic (ICD-10-PCS; 2019-02-13 08:30)
DX: N20.0 Calculus of kidney (principal); N20.2 Calculus of kidney with calculus of ureter; I10 Essential (primary) hypertension; E11.9 Type 2 diabetes mellitus without complications; E66.01 Morbid (severe) obesity due to excess calories
CPT/HCPCS: 76000-TC-FY; 82962; 88300-TC; 94760

== ENCOUNTER 2019-02-24 14:19 | Inpatient (IN) | payer OTHER ==
--- NOTE | 2019-02-24 14:32 | PDOC ---
Rapid Medical Evaluation Time Seen by Provider: 02/24/19 14:21 Medical Evaluation: Allergies Allergy/AdvReac Type Severity Reaction Status Date / Time aspirin AdvReac Mild Verified 02/24/19 14:30 oxycodone [From Percocet] AdvReac Mild Verified 02/24/19 14:30 02/24/19 14:30 CC: Fever at home 102 s/p ureteroscopy PE: No CVAT. ABD benign. Orders: labs, urine Patient will proceed to ED for further evaluation. Discharge Disposition - Diagnosis Fever - Referrals - Patient Instructions - Post Discharge Activity
[2019-02-24 14:35] VITALS: BMI 50.6
--- NOTE | 2019-02-24 14:55 | PDOC ---
History of Present Illness - General Chief Complaint: Urinary Problem Stated Complaint: SENT BY PCP Time Seen by Provider: 02/24/19 14:21 - History of Present Illness Initial Comments: The pt is a 68F w/ a history of nephrolithiasis, s/p sent on 02/13/19 due to a 1.7cm obstructing R UPJ stone who presents for evaluation of fevers, dysuria, and lower abdominal pain for 4 days. The reports dysuria, lower R abdominal pain that is achy, non-radiating, intermittent, associated with fevers/chills ( Tm 102 at home), and her symptoms were alleviated somewhat by Tylenol. She denies fevers/chills, chest pain, N?V, diarrhea, or changes in strength/ sensation. PCP: Dr. Rosales Urology: Dr. Covington 02/24/19 14:58 Past History - Past Medical History Allergies/Adverse Reactions: Allergies Allergy/AdvReac Type Severity Reaction Status Date / Time aspirin AdvReac Mild Verified 02/24/19 14:30 oxycodone [From Percocet] AdvReac Mild Verified 02/24/19 14:30 Home Medications: Ambulatory Orders Allopurinol 300 mg PO DAILY 01/23/19 Alprazolam [Xanax] 0.5 mg PO PRN PRN 01/23/19 Baclofen 10 mg PO PRN PRN 01/23/19 Famotidine [Pepcid] 40 mg PO DAILY 01/23/19 Gabapentin 300 mg PO BID 01/23/19 Hydrocodone/Acetaminophen [Hydrocodone-Acetamin 5-325 mg] 1 each PO PRN PRN 07/09 Magnesium Oxide [Magnesium] 1,000 mg PO PRN PRN 01/23/19 Metformin HCl [Glucophage] 1,000 mg PO AM 01/23/19 Sitagliptin Phosphate [Januvia] 50 mg PO DAILY 01/23/19 Zolpidem Tartrate 10 mg PO HS PRN 01/23/19 Acetaminophen [Tylenol .Regular Strength -] 650 mg PO Q6H PRN tablet 01/25/19 Amlodipine Besylate [Norvasc -] 5 mg PO DAILY #30 tablet 01/25/19 Cephalexin [Keflex] 250 mg PO QID 02/13/19 Anemia: No Asthma: No COPD: No Diabetes: Yes HTN: Yes - Surgical History Appendectomy: No GI Surgery: Yes - Immunization History Immunization Up to Date: Yes - Psycho Social/Smoking Cessation Hx Smoking History: Never smoked Have you smoked in the past 12 months: No If you are a former smoker, when did you quit?: over 35 yrs ago Hx Alcohol Use: No Drug/Substance Use Hx: No Substance Use Type: None Review of Systems - Review of Systems Able to Perform ROS?: Yes Comments:: GENERAL/CONSTITUTIONAL: +fever/chills. No weakness HEAD, EYES, EARS, NOSE AND THROAT: No change in vision. No change in hearing. No sore throat CARDIOVASCULAR: No chest pain or shortness of breath RESPIRATORY: Denies cough, hemoptysis GASTROINTESTINAL: No nausea, vomiting, diarrhea or constipation GENITOURINARY: +Dysuria/frequency MUSCULOSKELETAL: No joint or muscle swelling or pain. +chronic back pain SKIN: No rash NEUROLOGIC: No headache, vertigo, loss of consciousness, or change in strength/ sensation ENDOCRINE: No increased thirst. No abnormal weight change HEMATOLOGIC/LYMPHATIC: No anemia, easy bleeding, or history of blood clots ALLERGIC/IMMUNOLOGIC: No hives or skin allergy 02/24/19 14:54 Is the patient limited Uzbek proficient: No *Physical Exam - Vital Signs Last Vital Signs Temp Pulse Resp BP Pulse Ox 98.2 F 94 H 20 92/60 95 02/24/19 14:31 02/24/19 14:31 02/24/19 14:31 02/24/19 14:31 02/24/19 14:31 - Physical Exam Comments: GENERAL: Awake, alert, and oriented to person/place/time, in no acute distress HEAD: No signs of trauma, normocephalic, atraumatic EYES: PERRLA, EOMI, sclera anicteric, conjunctiva clear ENT: Hearing grossly normal, nares patent, oropharynx clear without exudates. Moist mucosa LUNGS: No distress, speaks in full sentences, clear to auscultation bilaterally HEART: Regular rate and rhythm, normal S1 and S2, no murmurs appreciated, peripheral pulses normal and equal bilaterally ABDOMEN: Soft, protuberant, mild suprapubic TTP w/o rebound/guarding; normoactive bowel sounds EXTREMITIES: Normal inspection, Normal range of motion, no edema. No clubbing or cyanosis NEUROLOGICAL: Cranial nerves II through XII grossly intact. Normal speech, walks w/ walker; no focal sensorimotor deficits SKIN: Warm, Dry 02/24/19 14:54 ED Treatment Course - LABORATORY CBC & Chemistry Diagram: 02/24/19 15:00 02/24/19 15:00 Medical Decision Making - Medical Decision Making The pt is a 68F w/ a history of nephrolithiasis, s/p sent on 02/13/19 due to a 1.7cm obstructing R UPJ stone who presents for evaluation of fevers, dysuria, and lower abdominal pain for 4 days. ED Course Labs sent ECG Zosyn IVF Diabetic diet 02/24/19 15:39 ECG w/ sinus; HR 88; QTc 457; left axis deviation; no acute change from previous WBC 12.9 No anemia 02/24/19 16:01 Lytes unremarkable Cr 1.6, at baseline LFTs wnl UA w/ evidence of UTI Case discussed w/ Dr. Covington Plan for admission for IV abx 02/24/19 16:19 Case signed out to [facility] Admitting 02/24/19 16:42 Pt now with chills, will give Tylenol 975mg PO once 02/24/19 17:40 Discharge - Discharge Information Problems reviewed: Yes Clinical Impression/Diagnosis: Fever Qualifiers: Fever type: unspecified Qualified Code(s): R50.9 - Fever, unspecified UTI (urinary tract infection) Qualifiers: Urinary tract infection type: site unspecified Hematuria presence: with hematuria Qualified Code(s): N39.0 - Urinary tract infection, site not specified Diabetes mellitus Qualifiers: Diabetes mellitus type: type 2 Diabetes mellitus mcfp insulin use: unspecified mcfp insulin use status Diabetes mellitus complication status: with other specified complication Qualified Code(s): E11.69 - Type 2 diabetes mellitus with other specified complication Condition: Good - Admission Yes - Follow up/Referral - Patient Discharge Instructions - Post Discharge Activity
[2019-02-24] MEDS ORDERED: MAGNESIUM OXIDE 400 MG TABLET (FP) PO ONE (15:05)
[2019-02-24] MEDS ORDERED: MAGNESIUM OXIDE 400 MG TABLET (FP) ONE (15:08)
--- NOTE | 2019-02-24 15:21 | PDOC ---
Attending Attestation - Resident Resident Name: Cam Alonso - ED Attending Attestation I have performed the following: I have examined & evaluated the patient, The case was reviewed & discussed with the resident, I agree w/resident's findings & plan, Exceptions are as noted - HPI HPI: 02/24/19 16:06 68yo female with fevers x 3 days and rigors over the weekend. Pt c/o dysuria. States stent placed last week by Dr. Lundberg after stone removal. Pt states she had a zpack at home which she started to take on sunday. Tmax 102 on sunday and then 101 on sunday. Seen by Dr. Estrada today who sent the patient in for further eval. Pt denies n/v. States loose stool overnight. Pt states she has been eating and drinking, but has cloudy urine and dysuria. Denies hematuria. - Physicial Exam PE: 02/24/19 16:10 Gen: aaox3, sitting up, laughing, in nad heent: MMM, eomi Heart: +s1s2 reg lungs: cta b/l abd: soft, obese, R cva ttp, suprapubic ttp, no rebound or guarding ext: no c/c/e - Medical Decision Making 02/24/19 16:11 a/p: 68yo female with recent stent placement with fevers and dysuria -pt started azithro on sunday -still with fevers and rigors -diarrhea overnight -dysuria and urgency/freq -suspect uti with recent stent -will need iv abx -will need ivf hydration -will need to discuss with Dr. Lundberg -will monitor and reassess 02/24/19 16:14 wbc elevated 02/24/19 16:34 pt with ckd pt with uti microblog sent to [facility] for admission 02/24/19 16:40 resident discussed the case with [facility] Heart Score/ECG Review - ECG Intrepretation Comment:: 02/24/19 16:13 sinus at 88, l axis, lbbb, no acute st/t wave findings, hx of lbbb
[2019-02-24 15:41] LABS: BASO % 0.4 % (0-2.0); EOS % 0.1 % (0-4.5); HEMATOCRIT 35.8 % (32.4-45.2); HEMOGLOBIN 11.3 GM/dL (10.7-15.3); LYMPH % 8.5 % (8-40); MCH 25.8 pg (25.7-33.7); MCHC 31.5 g/dl (32.0-36.0); MEAN CELL VOLUME 81.9 fl (80-96); MEAN PLT VOLUME 9.8 fl (7.5-11.1); PLATELET COUNT 290 K/MM3 (134-434); RBC 4.38 M/mm3 (3.60-5.2); RDW 17.8 % (11.6-15.6); WHITE BLOOD COUNT 12.9 K/mm3 (4.0-10.0)
[2019-02-24] MEDS ORDERED: PIPERACILLIN/TAZOB 3.375 GM 3.375 GM in DEXTROSE 5%-WATER - 50 ML IVPB ONE (15:44)
[2019-02-24] MEDS ORDERED: PIPERACILLIN/TAZOB 3.375 GM 3.375 GM/50 ML BAG IVPB ONE (15:54)
[2019-02-24] MEDS ORDERED: SODIUM CHLORIDE 0.9% 500 ML INFUS.BAG IV ONE (15:59)
[2019-02-24 16:16] LABS: ALBUMIN 3.5 g/dl (3.4-5.0); BILIRUBIN,TOTAL 0.6 mg/dL (0.2-1); BLOOD UREA NITROGEN 31.5 mg/dL (7-18); CALCIUM 8.6 mg/dL (8.5-10.1); CREATININE 1.6 mg/dL (0.55-1.3); POTASSIUM 4.3 mmol/L (3.5-5.1); TOT PROT 6.6 g/dl (6.4-8.2)
[2019-02-24 16:23] LABS: HYALINE CASTS 4 /lpf (0-8); PH,URINE 5.5 (5.0-8.0); URINE APPEARANCE TURBID; URINE BACTERIA 8673.9 /hpf (NEGATIVE); URINE BILIRUBIN NEGATIVE (NEGATIVE); URINE COLOR YELLOW; URINE GLUCOSE (UA) NEGATIVE (NEGATIVE); URINE KETONE NEGATIVE (NEGATIVE); URINE LEUK ESTERASE 3+ (NEGATIVE); URINE NITRITE POSITIVE (NEGATIVE); URINE PROTEIN 2+ (NEGATIVE); URINE UROBILINOGEN 0.2 mg/dL (0.2-1.0); URINE WBC 495 /hpf (0-5)
[2019-02-24 16:38] LABS: URINE RBC 55.5 /hpf (0-4)
[2019-02-24] MEDS ORDERED: ACETAMINOPHEN 325 MG TABLET (FP) PO ONE (17:30)
[2019-02-24] MEDS ORDERED: ACETAMINOPHEN 325 MG TABLET (FP) ONE (17:32)
[2019-02-24] MEDS: SODIUM CHLORIDE 1,000 ML IV SCH (18:00)
--- NOTE | 2019-02-24 18:23 | HP ---
CHIEF COMPLAINT: dysuria PCP: Dr. Rosales Urology: Dr. Covington HISTORY OF PRESENT ILLNESS: Patient is a 68 year old female with a past medical history of gout, kidney stones, hypertension, morbid obesity and diabetes. She had a stent placed on 02/13/2019 due to a 1.7cm obstructing right upj stone. She presents to the ED today for fevers of 102F at home with rigors that began on Sunday. Pateint c/ o of dysuria. Patient began to feel unwell on Sunday and was placed on a Zpack on Sunday. She continued to have fevers, rigors, malaise and weakness. On Sunday her temperature was 101F and today she went to see her PCP who advised her to come to the ED for further workup. She reports very cloudy foul smelling urine and dysuria. She denies hematuria or vaginal discharge. ER course was notable for: (1) given zosyn in the Ed (2) wbc 12.9 (3) creat 1.6,bun 31 (4) glucose 172 Recent Travel: none PAST MEDICAL HISTORY: gout, kidney stones, hypertension, morbid obesity and diabetes. Social History: Smoking: none Alcohol: none Drugs: none Allergies aspirin Adverse Reaction (Mild, Verified 02/24/19 14:30) GI upset & dizziness oxycodone [From Percocet] Adverse Reaction (Mild, Verified 02/24/19 14:30) dizziness & GI upset HOME MEDICATIONS: Home Medications Medication Instructions Recorded Allopurinol 300 mg PO DAILY 01/23/19 Alprazolam [Xanax] 0.5 mg PO PRN PRN 01/23/19 Baclofen 10 mg PO PRN PRN 01/23/19 Famotidine [Pepcid] 40 mg PO DAILY 01/23/19 Gabapentin 300 mg PO BID 01/23/19 Hydrocodone/Acetaminophen 1 each PO PRN PRN 01/23/19 [Hydrocodone-Acetamin 5-325 mg] Magnesium Oxide [Magnesium] 1,000 mg PO PRN PRN 01/23/19 Metformin HCl [Glucophage] 1,000 mg PO AM 01/23/19 Sitagliptin Phosphate [Januvia] 50 mg PO DAILY 01/23/19 Zolpidem Tartrate 10 mg PO HS PRN 01/23/19 Acetaminophen [Tylenol .Regular 650 mg PO Q6H PRN tablet 01/25/19 Strength -] Amlodipine Besylate [Norvasc -] 5 mg PO DAILY #30 tablet 01/25/19 Cephalexin [Keflex] 250 mg PO QID 02/13/19 REVIEW OF SYSTEMS PHYSICAL EXAMINATION Vital Signs - 24 hr 02/24/19 02/24/19 02/24/19 14:31 17:06 17:35 Temperature 98.2 F 99.1 F Pulse Rate 94 H Pulse Rate [ 84 Radial] Respiratory 20 18 Rate Blood Pressure 92/60 Blood Pressure 155/82 [Right Arm] O2 Sat by Pulse 95 100 Oximetry (%) GENERAL: Awake, alert, and fully oriented, in no acute distress. shortness of breath with physical movement, ambulates with RW HEAD: Normal with no signs of trauma. EYES: Pupils equal, round and reactive to light, extraocular movements intact, sclera anicteric, conjunctiva clear. No lid lag. EARS, NOSE, THROAT: Ears normal, nares patent, oropharynx clear without exudates. Moist mucous membranes. NECK: Normal range of motion, supple without lymphadenopathy, JVD, or masses. LUNGS: Breath sounds equal, clear to auscultation bilaterally HEART: Regular rate and rhythm, mild tachycardia ABDOMEN: Soft, nontender, not distended, normoactive bowel sounds, no guarding, no rebound, no masses. No hepatomegaly or splenomegaly. MUSCULOSKELETAL: Normal range of motion at all joints. No bony deformities or tenderness. No CVA tenderness. UPPER EXTREMITIES: No peripheral edema. LOWER EXTREMITIES: +1 bilateral lower ext edema pitting NEUROLOGICAL: Cranial nerves II-XII intact. Normal speech. walks with RW PSYCHIATRIC: Cooperative. Good eye contact. Appropriate mood and affect. SKIN: Warm, dry, normal turgor, no rashes or lesions noted, normal capillary refill. Laboratory Results - last 24 hr 02/24/19 02/24/19 02/24/19 15:00 15:00 15:47 WBC 12.9 H RBC 4.38 Hgb 11.3 Hct 35.8 MCV 81.9 MCH 25.8 MCHC 31.5 L RDW 17.8 H Plt Count 290 MPV 9.8 Absolute Neuts (auto) 10.5 H Neutrophils % 81.0 Lymphocytes % 8.5 D Monocytes % 10.0 Eosinophils % 0.1 D Basophils % 0.4 Nucleated RBC % 0 Sodium 143 Potassium 4.3 Chloride 112 H Carbon Dioxide 19 L Anion Gap 12 BUN 31.5 H Creatinine 1.6 H Est GFR (CKD-EPI)AfAm 38.25 Est GFR (CKD-EPI)NonAf 33.00 Random Glucose 172 H Calcium 8.6 Total Bilirubin 0.6 AST 29 ALT 36 Alkaline Phosphatase 90 Total Protein 6.6 Albumin 3.5 Urine Color Yellow Urine Appearance Turbid Urine pH 5.5 Ur Specific [place] 1.020 Urine Protein 2+ H Urine Glucose (UA) Negative Urine Ketones Negative Urine Blood 3+ H Urine Nitrite Positive H Urine Bilirubin Negative Urine Urobilinogen 0.2 Ur Leukocyte Esterase 3+ H Urine WBC (Auto) 495 Urine RBC (Auto) 55.5 Urine Casts (Auto) 4 U Epithel Cells (Auto) 3.0 Urine Bacteria (Auto) 8673.9 ASSESSMENT/PLAN: Family Medical History Family History: Denies Problem List - Problem (1) Hydronephrosis with renal calculous obstruction Assessment/Plan: recent stent placement ivf, pain management urology consult monitor urine output Code(s): N13.2 - HYDRONEPHROSIS WITH RENAL AND URETERAL CALCULOUS OBSTRUCTION (2) Diabetes mellitus Assessment/Plan: on novolog ss, monitor bgms. Code(s): E11.9 - TYPE 2 DIABETES MELLITUS WITHOUT COMPLICATIONS Qualifiers: Diabetes mellitus type: type 2 Diabetes mellitus usp insulin use: unspecified usp insulin use status Diabetes mellitus complication status : with other specified complication Qualified Code(s): E11.69 - Type 2 diabetes mellitus with other specified complication (3) Fever Assessment/Plan: monitor fever curve. corbett cultured. Code(s): R50.9 - FEVER, UNSPECIFIED Qualifiers: Fever type: unspecified Qualified Code(s): R50.9 - Fever, unspecified (4) UTI (urinary tract infection) Assessment/Plan: urosepsis likely. continue zosyn pending ID consult. Code(s): N39.0 - URINARY TRACT INFECTION, SITE NOT SPECIFIED Qualifiers: Urinary tract infection type: site unspecified Hematuria presence: with hematuria Qualified Code(s): N39.0 - Urinary tract infection, site not specified; R31.9 - Hematuria, unspecified (5) Hypertension Assessment/Plan: monitor bp, continue home meds Code(s): I10 - ESSENTIAL (PRIMARY) HYPERTENSION Qualifiers: Hypertension type: essential hypertension Qualified Code(s): I10 - Essential (primary) hypertension (6) Obesity Assessment/Plan: bmi 50, morbid obesity with diabetes, htn risk factors Code(s): E66.9 - OBESITY, UNSPECIFIED Qualifiers: Obesity type: due to excess calories Body mass index: BMI 50.0-59.9 (7) Right kidney stone Assessment/Plan: for urology follow up. Code(s): N20.0 - CALCULUS OF KIDNEY (8) VINH (acute kidney injury) Assessment/Plan: continue to hydrate. Code(s): N17.9 - ACUTE KIDNEY FAILURE, UNSPECIFIED Visit type - Emergency Visit Emergency Visit: Yes ED Registration Date: 02/24/19 Care time: The patient presented to the Emergency Department on the above date and was hospitalized for further evaluation of their emergent condition. - New Patient This patient is new to me today: Yes Date on this admission: 02/24/19 - Critical Care Critical Care patient: No
[2019-02-24] MEDS ORDERED: ACETAMINOPHEN 325 MG TABLET (FP) PO PRN (18:24)
[2019-02-24] MEDS: GABAPENTIN 300 MG CAPSULE (FP) PO SCH (21:25)
[2019-02-24] MEDS: INSULIN SLIDING SCALE (NOVOLOG) 1 VIAL SQ SCH (21:27)
[2019-02-24] MEDS: HEPARIN NA (PORCINE) 5,000 UNITS/ML 1ML VIAL SQ SCH (21:29)
[2019-02-24] MEDS ORDERED: MELATONIN 5 MG TABLETS PO PRN (22:00)
[2019-02-24] MEDS ORDERED: VANCOMYCIN 1 GM in D5W (PRE-DOCKED) 1,000 MG/250 ML IVPB ONE (22:22)
[2019-02-24] MEDS ORDERED: VANCOMYCIN 1 GRAM (PRE-DOCKED) 1,000 MG/250 ML BAG IVPB ONE (22:45)
--- NOTE | 2019-02-24 22:53 | HOSP ---
Subjective - Review of Symptoms Events since last encounter: 68 year old female with PMH of gout, kidney stones, hypertension, morbid obesity and diabetes. S/p stent 02/13/2019 due to a 1.7cm obstructing right upj stone, arrived to ED for fever for Tmax:102F and c/o of dysuria, cloudy foul smelling urine. In ED noted with wbc: 12.9 --> given zosyn x1, tylenol and pending corbett culture RN microblog at 21:56 patient noted with shaking, chill and Tmax: 103.1, tylenol given po x1 General: Yes: Chills, Malaise HEENT: Yes: Head Aches Pulmonary: No: Dyspnea, Cough, Pleuritic Chest Pain, Other Cardiovascular: No: Chest Pain, Palpitations, Orthopnea, Paroxysmal Noc. Dyspnea , Edema, Light Headedness, Other Gastrointestinal: No: Nausea, NOSYM, Vomiting, Abdominal Pain, Diarrhea, Constipation, Melena, Hematochezia, Other Genitourinary: Yes: Dysuria Musculoskeletal: No: No Symptoms, Back Pain, Crepitus, Decreased ROM, Extremity Pain, Joint Pain, Joint Swelling, Muscle Pain, Muscle Cramps, Muscle Weakness, Other Neurological: Yes: Weakness Physical Examination Vital Signs: Vital Signs Temperature 103.1 F H 02/24/19 21:48 Pulse Rate 91 H 02/24/19 19:03 Respiratory Rate 18 02/24/19 19:03 Blood Pressure 128/94 02/24/19 19:03 O2 Sat by Pulse Oximetry (%) 96 02/24/19 21:00 Constitutional: Yes: Moderate Distress, Other (chills, shaking) Eyes: Yes: Conjunctiva Clear HENT: Yes: Atraumatic, Normocephalic Neck: Yes: Supple, Trachea Midline Cardiovascular: Yes: Regular Rate and Rhythm Respiratory: Yes: Regular Gastrointestinal: Yes: Normal Bowel Sounds, Soft Renal/: Yes: WNL Musculoskeletal: Yes: WNL Labs: CBC, BMP 02/24/19 15:00 02/24/19 15:00 Hospitalist Encounter Assessment: #Hydronephrosis with renal calculous obstruction (recent stent placement) # Fever #UTI - post zosyn in ED, continue with zosyn q 8 hours - will give vanco 1 g x1 - tylenol changed to q4 hours - follow corbett culture - continue with ivf, pain management - urology consult - monitor urine output - ID to follow in AM
[2019-02-25] MEDS ORDERED: DEXTROSE 5%-WATER - 50 ML IVPB ONE ×3 (00:12→17:06)
[2019-02-25] MEDS ORDERED: PIPERACILLIN/TAZOBACTAM 2.25 GM VIAL IVPB ONE ×2 (00:12→09:26)
[2019-02-25] MEDS: PIPERACILLIN/TAZOB 2.25 GM 2.25 GM in DEXTROSE 5%-WATER - 50 ML IVPB SCH ×2 (01:13→11:08)
[2019-02-25] MEDS: ACETAMINOPHEN 325 MG TABLET (FP) PO PRN ×2 (02:00→21:45)
[2019-02-25] MEDS ORDERED: PIPERACILLIN/TAZOB 2.25 GM 2.25 GM in DEXTROSE 5%-WATER - 50 ML IVPB SCH (02:00)
[2019-02-25] MEDS: INSULIN SLIDING SCALE (NOVOLOG) 1 VIAL SQ SCH ×4 (06:08→21:14)
--- NOTE | 2019-02-25 07:20 | PN ---
Progress Note (short form) - Note Progress Note: 68 yo lady with h/o NIDDM, Obesity, HTN, renal stones s/p laser lithotripsy and stent placement for large right renal stone on finished bactrim on 02.21.19 next day developed fever, shaking chills and rigors saw dr. Lundberg and me yesterday and was sent to er for admission, r/o urosepsis, iv abx Vital Signs Period Temp Pulse Resp BP Sys/Loredo Pulse Ox Last 24 Hr 98.2 F-103.1 F 75-94 18-20 92-155/60-94 95-100 continues to have high fevers s1s2 rrr lungs cta abd soft, no CVA tenderness no edema aaox3 Urosepsis Gram negative bacteremia HTN NIDDM Obesity iv abx received zosyn and vanco yesterday ultimately will have to have stent removed
[2019-02-25 07:41] LABS: HEMATOCRIT 31.5 % (32.4-45.2); HEMOGLOBIN 10.1 GM/dL (10.7-15.3); MCH 26.3 pg (25.7-33.7); MCHC 32.1 g/dl (32.0-36.0); MEAN CELL VOLUME 81.8 fl (80-96); MEAN PLT VOLUME 9.5 fl (7.5-11.1); PLATELET COUNT 228 K/MM3 (134-434); RBC 3.86 M/mm3 (3.60-5.2); RDW 17.9 % (11.6-15.6); WHITE BLOOD COUNT 10.9 K/mm3 (4.0-10.0)
[2019-02-25 08:03] LABS: BLOOD UREA NITROGEN 30.5 mg/dL (7-18); CALCIUM 8.2 mg/dL (8.5-10.1); CREATININE 1.5 mg/dL (0.55-1.3); POTASSIUM 3.9 mmol/L (3.5-5.1)
--- NOTE | 2019-02-25 09:07 | CON.GU ---
Consult - History of Present Illness History of Present Illness: 68 yo female s/p rt urerteroscopy/laser lithotripsy 10 days ago for large rt kidney stone. Now admitted for fever and uti. No flank pain - Past Medical History Cardio/Vascular: Yes: Other (left bundle branch block) Renal/: Yes: Renal Calculi (known history-has had transcutaneous stone removal over 15 yrs ago) Musculoskeletal: Yes: Chronic low back pain, Other (ostearthritis) Endocrine: Yes: Diabetes Mellitus, Other (obesity) - Past Surgical History Past Surgical History: Yes: Cataract Removal (bilateral 2016), Hysterectomy ( BSO 1995 endometrial hyperplasia), Joint Replacement (left knee 2014 right total hip replacement 2014-postop dropped foot), Tonsillectomy - Alcohol/Substance Use Hx Alcohol Use: No - Smoking History Smoking history: Never smoked Have you smoked in the past 12 months: No If you are a former smoker, when did you quit?: over 35 yrs ago - Social History ADL: Independent History of Recent Travel: No Home Medications - Allergies Allergies/Adverse Reactions: Allergies Allergy/AdvReac Type Severity Reaction Status Date / Time aspirin AdvReac Mild Verified 02/24/19 14:30 oxycodone [From Percocet] AdvReac Mild Verified 02/24/19 14:30 - Home Medications Home Medications: Ambulatory Orders Allopurinol 300 mg PO DAILY 01/23/19 Alprazolam [Xanax] 0.5 mg PO PRN PRN 01/23/19 Baclofen 10 mg PO PRN PRN 01/23/19 Famotidine [Pepcid] 40 mg PO DAILY 01/23/19 Gabapentin 300 mg PO BID 01/23/19 Hydrocodone/Acetaminophen [Hydrocodone-Acetamin 5-325 mg] 1 each PO PRN PRN 07/09 Magnesium Oxide [Magnesium] 1,000 mg PO PRN PRN 01/23/19 Metformin HCl [Glucophage] 1,000 mg PO AM 01/23/19 Sitagliptin Phosphate [Januvia] 50 mg PO DAILY 01/23/19 Zolpidem Tartrate 10 mg PO HS PRN 01/23/19 Acetaminophen [Tylenol .Regular Strength -] 650 mg PO Q6H PRN tablet 01/25/19 Amlodipine Besylate [Norvasc -] 5 mg PO DAILY #30 tablet 01/25/19 Cephalexin [Keflex] 250 mg PO QID 02/13/19 Physical Exam- Vital Signs: Vital Signs Temperature 98.3 F 02/25/19 06:23 Pulse Rate 75 02/25/19 06:23 Respiratory Rate 20 02/25/19 06:23 Blood Pressure 133/65 02/25/19 06:23 O2 Sat by Pulse Oximetry (%) 96 02/24/19 21:00 Labs: CBC, BMP 02/25/19 06:46 02/25/19 06:46 Problem List - Problems (1) UTI (urinary tract infection) Assessment/Plan: KUB and sono ordered. Broad spectrum antibiotics while awaiting culture Code(s): N39.0 - URINARY TRACT INFECTION, SITE NOT SPECIFIED Qualifiers: Urinary tract infection type: site unspecified Hematuria presence: with hematuria Qualified Code(s): N39.0 - Urinary tract infection, site not specified; R31.9 - Hematuria, unspecified
--- NOTE | 2019-02-25 09:16 | EKG ---
Test Reason : Blood Pressure : / mmHG Vent. Rate : 088 BPM Atrial Rate : 088 BPM P-R Int : 176 ms QRS Dur : 126 ms QT Int : 378 ms P-R-T Axes : -12 -48 095 degrees QTc Int : 457 ms NORMAL SINUS RHYTHM LEFT AXIS DEVIATION NON-SPECIFIC INTRA-VENTRICULAR CONDUCTION BLOCK INFERIOR INFARCT (CITED ON OR BEFORE 23-JAN-2019) ANTEROLATERAL INFARCT (CITED ON OR BEFORE 23-JAN-2019) ABNORMAL ECG WHEN COMPARED WITH ECG OF 23-JAN-2019 09:31, QUESTIONABLE CHANGE IN INITIAL FORCES OF INFERIOR LEADS Confirmed by MD Nazario, Bertrand ([id number]) on 02/25/2019 9:16:13 AM Referred By: Confirmed By:Bertrand Lange MD
[2019-02-25] MEDS: GABAPENTIN 300 MG CAPSULE (FP) PO SCH ×2 (09:28→21:46)
[2019-02-25] MEDS: ALLOPURINOL 300 MG TABLET (FP) PO SCH (09:28)
[2019-02-25] MEDS: amLODIPine BESYLATE 5 MG TABLET (FP) PO SCH (09:28)
[2019-02-25] MEDS: HEPARIN NA (PORCINE) 5,000 UNITS/ML 1ML VIAL SQ SCH ×2 (09:29→21:46)
--- NOTE | 2019-02-25 11:31 | CON.ID ---
Consult Consult Specialty:: infectious diseases Referred by:: .N Reason for Consultation:: sepsis,fever,uti,bacteremia - History of Present Illness Chief Complaint: fever,chills History of Present Illness: 68 year old female with a past medical history of gout, kidney stones, hypertension, morbid obesity and diabetes. She had a stent placed on 2018 due to a 1.7cm obstructing right upj stone. came back to the hospital because of high grade fevers with dysuria .Was given zpack initially with no releif and fevers continued patient was send to the hospital on her work up patient found to have bacteremia as well as urinary tract infection has been afebrile since this morning,otherwise doing well - History Source History Provided By: Patient Limitations to Obtaining History: No Limitations - Past Medical History Cardio/Vascular: Yes: Other (left bundle branch block) Renal/: Yes: Renal Calculi (known history-has had transcutaneous stone removal over 15 yrs ago) Musculoskeletal: Yes: Chronic low back pain, Other (ostearthritis) Endocrine: Yes: Diabetes Mellitus, Other (obesity) - Past Surgical History Past Surgical History: Yes: Cataract Removal (bilateral 2016), Hysterectomy ( BSO 1995 endometrial hyperplasia), Joint Replacement (left knee 2014 right total hip replacement 2014-postop dropped foot), Tonsillectomy - Alcohol/Substance Use Hx Alcohol Use: No - Smoking History Smoking history: Never smoked Have you smoked in the past 12 months: No If you are a former smoker, when did you quit?: over 35 yrs ago - Social History ADL: Independent History of Recent Travel: No Home Medications - Allergies Allergies/Adverse Reactions: Allergies Allergy/AdvReac Type Severity Reaction Status Date / Time aspirin AdvReac Mild Verified 02/24/19 14:30 oxycodone [From Percocet] AdvReac Mild Verified 02/24/19 14:30 - Home Medications Home Medications: Ambulatory Orders Allopurinol 300 mg PO DAILY 01/23/19 Alprazolam [Xanax] 0.5 mg PO PRN PRN 01/23/19 Baclofen 10 mg PO PRN PRN 01/23/19 Famotidine [Pepcid] 40 mg PO DAILY 01/23/19 Gabapentin 300 mg PO BID 01/23/19 Hydrocodone/Acetaminophen [Hydrocodone-Acetamin 5-325 mg] 1 each PO PRN PRN 07/09 Magnesium Oxide [Magnesium] 1,000 mg PO PRN PRN 01/23/19 Metformin HCl [Glucophage] 1,000 mg PO AM 01/23/19 Sitagliptin Phosphate [Januvia] 50 mg PO DAILY 01/23/19 Zolpidem Tartrate 10 mg PO HS PRN 01/23/19 Acetaminophen [Tylenol .Regular Strength -] 650 mg PO Q6H PRN tablet 01/25/19 Amlodipine Besylate [Norvasc -] 5 mg PO DAILY #30 tablet 01/25/19 Cephalexin [Keflex] 250 mg PO QID 02/13/19 Review of Systems - Review of Systems Constitutional: reports: Chills, Fever Eyes: reports: No Symptoms HENT: reports: No Symptoms Neck: reports: No Symptoms Cardiovascular: reports: No Symptoms Respiratory: reports: No Symptoms Gastrointestinal: reports: No Symptoms Genitourinary: reports: Dysuria Musculoskeletal: reports: No Symptoms Integumentary: reports: No Symptoms Neurological: reports: No Symptoms Endocrine: reports: No Symptoms Hematology/Lymphatic: reports: No Symptoms Psychiatric: reports: No Symptoms Physical Exam Vital Signs: Vital Signs Temperature 98.8 F 02/25/19 10:00 Pulse Rate 85 02/25/19 10:00 Respiratory Rate 20 02/25/19 10:00 Blood Pressure 120/69 02/25/19 10:00 O2 Sat by Pulse Oximetry (%) 96 02/25/19 09:00 Constitutional: Yes: Well Nourished, No Distress, Calm, Obese Eyes: Yes: Conjunctiva Clear Cardiovascular: Yes: Regular Rate and Rhythm Respiratory: Yes: Regular, CTA Bilaterally Gastrointestinal: Yes: Normal Bowel Sounds, Soft Musculoskeletal: Yes: WNL Extremities: Yes: WNL Neurological: Yes: Alert, Oriented Psychiatric: Yes: Alert, Oriented Labs: CBC, BMP 02/25/19 06:46 02/25/19 06:46 Imaging - Results Chest X-ray: Report Reviewed, Image Reviewed Ultrasound: Report Reviewed, Image Reviewed Assessment/Plan patient coming to the hospital with sepsis,fever dysuria and gm negative bacteremia probable source is the kidney/urine will continue current abx repeat blood cx close watch rest as per the team hydration
[2019-02-25] MEDS: SODIUM CHLORIDE 1,000 ML IV SCH ×2 (11:44→21:46)
--- NOTE | 2019-02-25 11:53 | PN ---
Progress Note (short form) - Note Progress Note: small fragments on TESFAYE Stent in place no hydro Follow cultures cont abx Follow in office for stent removal
[2019-02-25] MEDS ORDERED: PIPERACILLIN/TAZOBACTAM 3.375 GM VIAL IVPB ONE (17:06)
[2019-02-25] MEDS: PIPERACILLIN/TAZOB 3.375 GM 3.375 GM in DEXTROSE 5%-WATER - 50 ML IVPB SCH (17:16)
[2019-02-25] MEDS: ZOLPIDEM TARTRATE 5 MG TABLET PO PRN (22:33)
[2019-02-26] MEDS ORDERED: PIPERACILLIN/TAZOBACTAM 3.375 GM VIAL IVPB ONE ×3 (00:57→16:48)
[2019-02-26] MEDS ORDERED: DEXTROSE 5%-WATER - 50 ML IVPB ONE ×3 (00:57→16:49)
[2019-02-26] MEDS: PIPERACILLIN/TAZOB 3.375 GM 3.375 GM in DEXTROSE 5%-WATER - 50 ML IVPB SCH ×3 (01:05→18:53)
[2019-02-26] MEDS: INSULIN SLIDING SCALE (NOVOLOG) 1 VIAL SQ SCH ×4 (05:59→21:17)
[2019-02-26] MEDS ORDERED: metFORMIN HCL 500 MG TABLET (FP) PO SCH (07:00)
[2019-02-26 08:06] LABS: BASO % 0.5 % (0-2.0); EOS % 1.2 % (0-4.5); HEMATOCRIT 33.5 % (32.4-45.2); HEMOGLOBIN 10.7 GM/dL (10.7-15.3); LYMPH % 13.6 % (8-40); MCHC 32.1 g/dl (32.0-36.0); MEAN PLT VOLUME 9.1 fl (7.5-11.1); MONO % 11.6 % (3.8-10.2); NEUT % 73.1 % (42.8-82.8); PLATELET COUNT 247 K/MM3 (134-434); RBC 4.14 M/mm3 (3.60-5.2); RDW 17.9 % (11.6-15.6); WHITE BLOOD COUNT 7.7 K/mm3 (4.0-10.0)
[2019-02-26 08:35] LABS: BILIRUBIN,TOTAL 0.5 mg/dL (0.2-1); BLOOD UREA NITROGEN 26.2 mg/dL (7-18); CALCIUM 8.5 mg/dL (8.5-10.1); CREATININE 1.2 mg/dL (0.55-1.3); POTASSIUM 4.2 mmol/L (3.5-5.1)
--- NOTE | 2019-02-26 08:36 | PN ---
Progress Note (short form) - Note Progress Note: Afebrile 02/26/19 07:20 Microbiology 02/24/19 15:00 Blood - Peripheral Venous Blood Culture - Preliminary Lactose Fermenting Neg Bacilli 02/24/19 15:00 Blood - Peripheral Venous Blood Culture - Preliminary Lactose Fermenting Neg Bacilli 02/24/19 15:47 Urine - Urine - Catheterized Urine Culture - Preliminary Lactose Fermenting Neg Bacilli Vital Signs Period Temp Pulse Resp BP Sys/Loredo Pulse Ox Last 24 Hr 98.4 F-99.6 F 76-87 18-20 120-150/58-76 96-99 s1s2 rrr lungs cta abd obese, soft, no CVA tenderness no edema aaox3 Urosepsis Gram negative bacteremia HTN NIDDM Obesity iv abx-f/up cultures ultimately will have to have stent removed
--- NOTE | 2019-02-26 09:37 | PN ---
Progress Note, Physician History of Present Illness: stable feels much better awaiting for repeat cx - Current Medication List Current Medications: Active Medications Acetaminophen (Tylenol -) 650 mg PO Q4H PRN PRN Reason: PAIN LEVEL 7 - 10 Last Admin: 02/25/19 21:45 Dose: 650 mg Allopurinol (Zyloprim -) 300 mg PO DAILY [facility] Last Admin: 02/25/19 09:28 Dose: 300 mg Alprazolam (Xanax -) 0.5 mg PO BID PRN PRN Reason: ANXIETY Amlodipine Besylate (Norvasc -) 5 mg PO DAILY [facility] Last Admin: 02/25/19 09:28 Dose: 5 mg Gabapentin (Neurontin -) 300 mg PO BID [facility] Last Admin: 02/25/19 21:46 Dose: 300 mg Heparin Sodium (Porcine) (Heparin -) 5,000 unit SQ BID [facility] Last Admin: 02/25/19 21:46 Dose: Not Given Sodium Chloride (Normal Saline -) 1,000 mls @ 83 mls/hr IV ASDIR [facility] Last Admin: 02/25/19 21:46 Dose: 83 mls/hr Piperacillin Sod/Tazobactam (Sod 3.375 gm/ Dextrose) 50 mls @ 100 mls/hr IVPB Q8H-IV [facility]; Protocol Last Admin: 02/26/19 01:05 Dose: 100 mls/hr Insulin Aspart (Novolog Vial Sliding Scale -) 1 vial SQ ACHS [facility]; Protocol Last Admin: 02/26/19 05:59 Dose: Not Given Zolpidem Tartrate (Ambien -) 5 mg PO HS PRN PRN Reason: INSOMNIA Last Admin: 02/25/19 22:33 Dose: 5 mg - Objective Vital Signs: Vital Signs Temperature 98.4 F 02/26/19 06:29 Pulse Rate 76 02/26/19 06:29 Respiratory Rate 20 02/26/19 06:29 Blood Pressure 121/59 L 02/26/19 06:29 O2 Sat by Pulse Oximetry (%) 99 02/25/19 21:00 Constitutional: Yes: No Distress, Calm Respiratory: Yes: Regular, CTA Bilaterally Gastrointestinal: Yes: Normal Bowel Sounds, Soft Musculoskeletal: Yes: WNL Extremities: Yes: WNL Neurological: Yes: Alert, Oriented Psychiatric: Yes: Alert, Oriented Labs: CBC, BMP 02/26/19 07:20 02/26/19 07:20 Assessment/Plan Urosepsis Gram negative bacteremia HTN NIDDM Obesity plan continue abx await for cx reports rest as per the team
[2019-02-26] MEDS: HEPARIN NA (PORCINE) 5,000 UNITS/ML 1ML VIAL SQ SCH ×2 (09:46→21:17)
[2019-02-26] MEDS: amLODIPine BESYLATE 5 MG TABLET (FP) PO SCH (09:46)
[2019-02-26] MEDS: ALLOPURINOL 300 MG TABLET (FP) PO SCH (09:46)
[2019-02-26] MEDS: GABAPENTIN 300 MG CAPSULE (FP) PO SCH ×2 (09:46→21:15)
[2019-02-26] MEDS: ACETAMINOPHEN 325 MG TABLET (FP) PO PRN ×3 (11:30→19:21)
[2019-02-26] MEDS: ALPRAZolam 0.25 MG TABLET PO PRN (19:22)
[2019-02-26] MEDS: SODIUM CHLORIDE 1,000 ML IV SCH (21:15)
[2019-02-26] MEDS: ZOLPIDEM TARTRATE 5 MG TABLET PO PRN (22:07)
[2019-02-27] MEDS ORDERED: PIPERACILLIN/TAZOBACTAM 3.375 GM VIAL IVPB ONE ×3 (00:35→15:44)
[2019-02-27] MEDS ORDERED: DEXTROSE 5%-WATER - 50 ML IVPB ONE ×3 (00:36→15:44)
[2019-02-27] MEDS: PIPERACILLIN/TAZOB 3.375 GM 3.375 GM in DEXTROSE 5%-WATER - 50 ML IVPB SCH ×3 (01:17→17:12)
[2019-02-27] MEDS: ACETAMINOPHEN 325 MG TABLET (FP) PO PRN ×2 (03:25→20:18)
[2019-02-27] MEDS: INSULIN SLIDING SCALE (NOVOLOG) 1 VIAL SQ SCH ×4 (06:19→21:20)
--- NOTE | 2019-02-27 08:07 | PN ---
Progress Note (short form) - Note Progress Note: CBC, BMP 02/26/19 07:20 02/26/19 07:20 Vital Signs Period Temp Pulse Resp BP Sys/Loredo Pulse Ox Last 24 Hr 98 F-99 F 85-90 18-20 130-146/64-84 s1s2 rrr lungs cta abd obese, soft, no CVA tenderness no edema aaox3 Urosepsis E.coli bacteremia HTN NIDDM Obesity iv abx for 5-7 days ultimately will have to have stent removed will f/up with urology
[2019-02-27] MEDS: amLODIPine BESYLATE 5 MG TABLET (FP) PO SCH (09:31)
[2019-02-27] MEDS: GABAPENTIN 300 MG CAPSULE (FP) PO SCH ×2 (09:31→21:13)
[2019-02-27] MEDS: ALLOPURINOL 300 MG TABLET (FP) PO SCH (09:31)
[2019-02-27] MEDS: HEPARIN NA (PORCINE) 5,000 UNITS/ML 1ML VIAL SQ SCH ×2 (09:32→21:12)
[2019-02-27] MEDS: valACYclovir HCL 500 MG TABLET (FP) PO SCH ×2 (11:32→21:19)
--- NOTE | 2019-02-27 11:45 | PN ---
Progress Note, Physician History of Present Illness: stable no new issues - Current Medication List Current Medications: Active Medications Acetaminophen (Tylenol -) 650 mg PO Q4H PRN PRN Reason: PAIN LEVEL 7 - 10 Last Admin: 02/27/19 03:25 Dose: 650 mg Allopurinol (Zyloprim -) 300 mg PO DAILY [facility] Last Admin: 02/27/19 09:31 Dose: 300 mg Alprazolam (Xanax -) 0.5 mg PO BID PRN PRN Reason: ANXIETY Last Admin: 02/26/19 19:22 Dose: 0.5 mg Amlodipine Besylate (Norvasc -) 5 mg PO DAILY [facility] Last Admin: 02/27/19 09:31 Dose: 5 mg Gabapentin (Neurontin -) 300 mg PO BID [facility] Last Admin: 02/27/19 09:31 Dose: 300 mg Heparin Sodium (Porcine) (Heparin -) 5,000 unit SQ BID [facility] Last Admin: 02/27/19 09:32 Dose: Not Given Piperacillin Sod/Tazobactam (Sod 3.375 gm/ Dextrose) 50 mls @ 100 mls/hr IVPB Q8H-IV [facility]; Protocol Last Admin: 02/27/19 09:31 Dose: 100 mls/hr Insulin Aspart (Novolog Vial Sliding Scale -) 1 vial SQ ACHS [facility]; Protocol Last Admin: 02/27/19 11:35 Dose: Not Given Valacyclovir HCl (Valtrex -) 1,000 mg PO BID [facility] Stop: 02/28/19 11:29 Last Admin: 02/27/19 11:32 Dose: 1,000 mg Zolpidem Tartrate (Ambien -) 5 mg PO HS PRN PRN Reason: INSOMNIA Last Admin: 02/26/19 22:07 Dose: 5 mg - Objective Vital Signs: Vital Signs Temperature 98 F 02/27/19 07:09 Pulse Rate 86 02/27/19 07:09 Respiratory Rate 20 02/27/19 09:00 Blood Pressure 133/79 02/27/19 07:09 O2 Sat by Pulse Oximetry (%) 99 02/25/19 21:00 Constitutional: Yes: No Distress, Calm Cardiovascular: Yes: S1, S2 Respiratory: Yes: Regular, CTA Bilaterally Gastrointestinal: Yes: Normal Bowel Sounds, Soft Musculoskeletal: Yes: WNL Extremities: Yes: WNL Neurological: Yes: Alert, Oriented Psychiatric: Yes: Alert, Oriented Labs: CBC, BMP 02/26/19 07:20 02/26/19 07:20 Assessment/Plan Urosepsis Gram negative bacteremia HTN NIDDM Obesity plan continue abx cx report noted plan to remove the stent repeat cx prelim result noted
[2019-02-27] MEDS ORDERED: INSULIN (NOVOLOG) ASPART 100 UNITS/ML 10ML VIAL ONE (21:17)
[2019-02-27] MEDS: ZOLPIDEM TARTRATE 5 MG TABLET PO PRN (22:32)
[2019-02-28] MEDS ORDERED: PIPERACILLIN/TAZOBACTAM 3.375 GM VIAL IVPB ONE ×3 (00:13→17:05)
[2019-02-28] MEDS ORDERED: DEXTROSE 5%-WATER - 50 ML IVPB ONE ×3 (00:13→17:06)
[2019-02-28] MEDS: PIPERACILLIN/TAZOB 3.375 GM 3.375 GM in DEXTROSE 5%-WATER - 50 ML IVPB SCH ×3 (01:28→17:11)
[2019-02-28] MEDS: ACETAMINOPHEN 325 MG TABLET (FP) PO PRN ×3 (02:39→17:12)
[2019-02-28] MEDS: INSULIN SLIDING SCALE (NOVOLOG) 1 VIAL SQ SCH ×4 (06:07→22:16)
--- NOTE | 2019-02-28 08:04 | PN ---
Progress Note (short form) - Note Progress Note: Vital Signs Period Temp Pulse Resp BP Sys/Loredo Pulse Ox Last 24 Hr 98 F-99.4 F 88-98 18-20 123-140/65-74 s1s2 rrr lungs cta abd obese, soft, no CVA tenderness no edema aaox3 Urosepsis E.coli bacteremia HTN NIDDM Obesity iv abx until 03.03.19, will go over to urology upon dc for stent removal
[2019-02-28] MEDS ORDERED: PT OWN MED DRAWER 7, Y5N ONE ×2 (08:34→22:38)
[2019-02-28] MEDS: GABAPENTIN 300 MG CAPSULE (FP) PO SCH ×2 (09:05→22:15)
[2019-02-28] MEDS: ALLOPURINOL 300 MG TABLET (FP) PO SCH (09:05)
[2019-02-28] MEDS: amLODIPine BESYLATE 5 MG TABLET (FP) PO SCH (09:06)
[2019-02-28] MEDS: HEPARIN NA (PORCINE) 5,000 UNITS/ML 1ML VIAL SQ SCH ×2 (09:06→22:34)
[2019-02-28] MEDS: valACYclovir HCL 500 MG TABLET (FP) PO SCH (09:06)
--- NOTE | 2019-02-28 11:47 | PN ---
Progress Note, Physician History of Present Illness: stable no new issues - Current Medication List Current Medications: Active Medications Acetaminophen (Tylenol -) 650 mg PO Q4H PRN PRN Reason: PAIN LEVEL 7 - 10 Last Admin: 02/28/19 08:43 Dose: 650 mg Allopurinol (Zyloprim -) 300 mg PO DAILY [facility] Last Admin: 02/28/19 09:05 Dose: 300 mg Alprazolam (Xanax -) 0.5 mg PO BID PRN PRN Reason: ANXIETY Last Admin: 02/26/19 19:22 Dose: 0.5 mg Amlodipine Besylate (Norvasc -) 5 mg PO DAILY [facility] Last Admin: 02/28/19 09:06 Dose: 5 mg Gabapentin (Neurontin -) 300 mg PO BID [facility] Last Admin: 02/28/19 09:05 Dose: 300 mg Heparin Sodium (Porcine) (Heparin -) 5,000 unit SQ BID [facility] Last Admin: 02/28/19 09:06 Dose: Not Given Piperacillin Sod/Tazobactam (Sod 3.375 gm/ Dextrose) 50 mls @ 100 mls/hr IVPB Q8H-IV [facility]; Protocol Last Admin: 02/28/19 09:09 Dose: 100 mls/hr Insulin Aspart (Novolog Vial Sliding Scale -) 1 vial SQ ACHS [facility]; Protocol Last Admin: 02/28/19 06:07 Dose: 2 units Zolpidem Tartrate (Ambien -) 5 mg PO HS PRN PRN Reason: INSOMNIA Last Admin: 02/27/19 22:32 Dose: 5 mg - Objective Vital Signs: Vital Signs Temperature 97.6 F 02/28/19 10:49 Pulse Rate 79 02/28/19 10:49 Respiratory Rate 18 02/28/19 10:49 Blood Pressure 158/75 02/28/19 10:49 O2 Sat by Pulse Oximetry (%) 99 02/25/19 21:00 Constitutional: Yes: No Distress, Calm Cardiovascular: Yes: S1, S2 Respiratory: Yes: Regular, CTA Bilaterally Gastrointestinal: Yes: Normal Bowel Sounds, Soft Musculoskeletal: Yes: WNL Extremities: Yes: WNL Neurological: Yes: Alert, Oriented Psychiatric: Yes: Alert, Oriented Labs: CBC, BMP 02/26/19 07:20 02/26/19 07:20 Assessment/Plan Urosepsis Gram negative bacteremia HTN NIDDM Obesity plan continue abx cx report noted plan to remove the stent stable
[2019-02-28] MEDS ORDERED: INSULIN (NOVOLOG) ASPART 100 UNITS/ML 10ML VIAL ONE ×2 (18:13→21:08)
[2019-02-28] MEDS: ZOLPIDEM TARTRATE 5 MG TABLET PO PRN (22:15)
[2019-02-28] MEDS: MICONAZOLE NITRATE 200 MG VAGINAL SUPPOSITORY PV SCH (22:16)
[2019-03-01] MEDS ORDERED: PIPERACILLIN/TAZOBACTAM 3.375 GM VIAL IVPB ONE ×3 (01:07→16:45)
[2019-03-01] MEDS ORDERED: DEXTROSE 5%-WATER - 50 ML IVPB ONE ×3 (01:07→16:46)
[2019-03-01] MEDS: PIPERACILLIN/TAZOB 3.375 GM 3.375 GM in DEXTROSE 5%-WATER - 50 ML IVPB SCH ×3 (01:14→17:11)
[2019-03-01] MEDS: ACETAMINOPHEN 325 MG TABLET (FP) PO PRN ×2 (05:58→22:24)
[2019-03-01] MEDS: INSULIN SLIDING SCALE (NOVOLOG) 1 VIAL SQ SCH ×4 (06:00→21:00)
[2019-03-01 07:57] LABS: BASO % 0.7 % (0-2.0); EOS % 1.5 % (0-4.5); HEMATOCRIT 32.9 % (32.4-45.2); HEMOGLOBIN 10.5 GM/dL (10.7-15.3); LYMPH % 15.4 % (8-40); MCH 25.8 pg (25.7-33.7); MEAN CELL VOLUME 80.9 fl (80-96); MEAN PLT VOLUME 9.2 fl (7.5-11.1); MONO % 8.1 % (3.8-10.2); NEUT % 74.3 % (42.8-82.8); PLATELET COUNT 309 K/MM3 (134-434); RBC 4.06 M/mm3 (3.60-5.2); RDW 17.3 % (11.6-15.6); WHITE BLOOD COUNT 9.2 K/mm3 (4.0-10.0)
--- NOTE | 2019-03-01 08:23 | PN ---
Progress Note (short form) - Note Progress Note: CBC, BMP 03/01/19 07:34 Vital Signs Period Temp Pulse Resp BP Sys/Loredo Pulse Ox Last 24 Hr 97.6 F-98.7 F 79-88 18-20 136-160/70-91 98 s1s2 rrr lungs cta abd obese, soft, no CVA tenderness no edema aaox3 Urosepsis E.coli bacteremia HTN NIDDM Obesity iv abx until 03.03.19, will go over to urology upon dc for stent removal increase amlodipine for bp control
[2019-03-01 08:31] LABS: BILIRUBIN,TOTAL 0.6 mg/dL (0.2-1); BLOOD UREA NITROGEN 19.6 mg/dL (7-18); CALCIUM 8.9 mg/dL (8.5-10.1); CREATININE 1.2 mg/dL (0.55-1.3); POTASSIUM 4.4 mmol/L (3.5-5.1); TOT PROT 5.8 g/dl (6.4-8.2)
[2019-03-01] MEDS: GABAPENTIN 300 MG CAPSULE (FP) PO SCH ×2 (10:31→20:59)
[2019-03-01] MEDS: ALLOPURINOL 300 MG TABLET (FP) PO SCH (10:31)
[2019-03-01] MEDS: HEPARIN NA (PORCINE) 5,000 UNITS/ML 1ML VIAL SQ SCH ×2 (10:31→21:00)
[2019-03-01] MEDS: amLODIPine BESYLATE 5 MG TABLET (FP) PO SCH (10:32)
--- NOTE | 2019-03-01 19:13 | PN ---
Progress Note, Physician History of Present Illness: Pt states she feels well. Remains afebrile. Tolerating antibiotics. - Current Medication List Current Medications: Active Medications Acetaminophen (Tylenol -) 650 mg PO Q4H PRN PRN Reason: PAIN LEVEL 7 - 10 Last Admin: 03/01/19 05:58 Dose: 650 mg Allopurinol (Zyloprim -) 300 mg PO DAILY [facility] Last Admin: 03/01/19 10:31 Dose: 300 mg Alprazolam (Xanax -) 0.5 mg PO BID PRN PRN Reason: ANXIETY Last Admin: 02/26/19 19:22 Dose: 0.5 mg Amlodipine Besylate (Norvasc -) 10 mg PO DAILY [facility] Last Admin: 03/01/19 10:32 Dose: 10 mg Gabapentin (Neurontin -) 300 mg PO BID [facility] Last Admin: 03/01/19 10:31 Dose: 300 mg Heparin Sodium (Porcine) (Heparin -) 5,000 unit SQ BID [facility] Last Admin: 03/01/19 10:31 Dose: Not Given Piperacillin Sod/Tazobactam (Sod 3.375 gm/ Dextrose) 50 mls @ 100 mls/hr IVPB Q8H-IV [facility]; Protocol Last Admin: 03/01/19 17:11 Dose: 100 mls/hr Insulin Aspart (Novolog Vial Sliding Scale -) 1 vial SQ ACHS [facility]; Protocol Last Admin: 03/01/19 17:30 Dose: Not Given Miconazole Nitrate (Miconazole 3) 200 mg PV HS [facility] Last Admin: 02/28/19 22:16 Dose: 200 mg Zolpidem Tartrate (Ambien -) 5 mg PO HS PRN PRN Reason: INSOMNIA Last Admin: 02/28/19 22:15 Dose: 5 mg - Objective Vital Signs: Vital Signs Temperature 98.7 F 03/01/19 17:19 Pulse Rate 87 03/01/19 17:19 Respiratory Rate 20 03/01/19 17:19 Blood Pressure 154/77 03/01/19 17:19 O2 Sat by Pulse Oximetry (%) 98 02/28/19 21:00 Constitutional: Yes: No Distress, Calm Eyes: Yes: Conjunctiva Clear Neck: Yes: Supple Cardiovascular: Yes: Regular Rate and Rhythm Respiratory: Yes: CTA Bilaterally Gastrointestinal: Yes: Normal Bowel Sounds, Soft, Abdomen, Obese Genitourinary: Yes: WNL Integumentary: Yes: WNL Neurological: Yes: Alert, Oriented Labs: CBC, BMP 03/01/19 07:34 03/01/19 07:34 Microbiology 02/26/19 08:45 Blood - Peripheral Venous Blood Culture - Preliminary NO GROWTH OBTAINED AFTER 72 HOURS, INCUBATION TO CONTINUE FOR 2 DAYS. 02/26/19 08:50 Blood - Peripheral Venous Blood Culture - Preliminary NO GROWTH OBTAINED AFTER 72 HOURS, INCUBATION TO CONTINUE FOR 2 DAYS. 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 care home insulin use status Diabetes mellitus complication status : with other specified complication Qualified Code(s): E11.69 - Type 2 diabetes mellitus with other specified complication (2) Fever Code(s): R50.9 - FEVER, UNSPECIFIED Qualifiers: Fever type: unspecified Qualified Code(s): R50.9 - Fever, unspecified (3) UTI (urinary tract infection) Code(s): N39.0 - URINARY TRACT INFECTION, SITE NOT SPECIFIED Qualifiers: Urinary tract infection type: site unspecified Hematuria presence: with hematuria Qualified Code(s): N39.0 - Urinary tract infection, site not specified; R31.9 - Hematuria, unspecified (4) Hydronephrosis with renal calculous obstruction Code(s): N13.2 - HYDRONEPHROSIS WITH RENAL AND URETERAL CALCULOUS OBSTRUCTION (5) Hypertension Code(s): I10 - ESSENTIAL (PRIMARY) HYPERTENSION Qualifiers: Hypertension type: essential hypertension Qualified Code(s): I10 - Essential (primary) hypertension (6) Obesity Code(s): E66.9 - OBESITY, UNSPECIFIED Qualifiers: Obesity type: due to excess calories Body mass index: BMI 50.0-59.9 Assessment/Plan E. coli UTI/Bacteremia DM nephrolithiasis s/p ureteroscopy/lithotripsy HTN Obesity -- latest blood cultures no growth -- continue Zosyn as planned -- following Pt afebrile, improving
[2019-03-01] MEDS ORDERED: PT OWN MED DRAWER 7, Y5N ONE ×3 (20:23→22:54)
[2019-03-01] MEDS ORDERED: INSULIN (NOVOLOG) ASPART 100 UNITS/ML 10ML VIAL ONE (20:58)
[2019-03-01] MEDS: MICONAZOLE NITRATE 200 MG VAGINAL SUPPOSITORY PV SCH (21:04)
[2019-03-01] MEDS: ZOLPIDEM TARTRATE 5 MG TABLET PO PRN (22:47)
[2019-03-02] MEDS ORDERED: PIPERACILLIN/TAZOBACTAM 3.375 GM VIAL IVPB ONE ×3 (00:04→16:35)
[2019-03-02] MEDS: PIPERACILLIN/TAZOB 3.375 GM 3.375 GM in DEXTROSE 5%-WATER - 50 ML IVPB SCH ×3 (02:09→18:06)
[2019-03-02] MEDS: INSULIN SLIDING SCALE (NOVOLOG) 1 VIAL SQ SCH ×4 (06:04→21:02)
[2019-03-02] MEDS ORDERED: DEXTROSE 5%-WATER - 50 ML IVPB ONE ×2 (07:54→16:35)
--- NOTE | 2019-03-02 09:52 | DS ---
Physical Examination Vital Signs: Vital Signs Temperature 98.5 F 03/02/19 07:23 Pulse Rate 72 03/02/19 07:23 Respiratory Rate 20 03/02/19 07:23 Blood Pressure 130/58 L 03/02/19 07:23 O2 Sat by Pulse Oximetry (%) 98 02/28/19 21:00 Constitutional: Yes: Calm, Obese Eyes: Yes: EOM Intact HENT: Yes: Normocephalic Neck: Yes: Trachea Midline Cardiovascular: Yes: Regular Rate and Rhythm Respiratory: Yes: CTA Bilaterally Gastrointestinal: Yes: Normal Bowel Sounds, Soft, Abdomen, Obese Edema: No Peripheral Pulses WNL: Yes Integumentary: Yes: WNL Neurological: Yes: WNL Labs: CBC, BMP 03/01/19 07:34 03/01/19 07:34 Discharge Summary Problems reviewed: Yes Reason For Visit: DM UTI HYPERTENSION Current Active Problems VINH (acute kidney injury) (Acute) Diabetes mellitus (Acute) Fever (Acute) UTI (urinary tract infection) (Acute) Hospital Course: admitted for E coli bacteremia, urosepsis much better after iv zosyn will complete 7 days iv and f/up upon dc with urology for right ereteral stent removal given that she will have above mentioned procedure will dc home with additional 3 days of oral augmentin f/up with me in the office on [id number] Condition: Good - Instructions Referrals: Amaris Rosales MD [Primary Care Provider] - Disposition: HOME - Home Medications Comprehensive Discharge Medication List: Ambulatory Orders Allopurinol 300 mg PO DAILY 01/23/19 Alprazolam [Xanax] 0.5 mg PO PRN PRN 01/23/19 Baclofen 10 mg PO PRN PRN 01/23/19 Famotidine [Pepcid] 40 mg PO DAILY 01/23/19 Gabapentin 300 mg PO BID 01/23/19 Hydrocodone/Acetaminophen [Hydrocodone-Acetamin 5-325 mg] 1 each PO PRN PRN 07/09 Magnesium Oxide [Magnesium] 1,000 mg PO PRN PRN 01/23/19 Metformin HCl [Glucophage] 1,000 mg PO AM 01/23/19 Sitagliptin Phosphate [Januvia] 50 mg PO DAILY 01/23/19 Zolpidem Tartrate 10 mg PO HS PRN 01/23/19 Acetaminophen [Tylenol .Regular Strength -] 650 mg PO Q6H PRN tablet 01/25/19 Amlodipine Besylate [Norvasc -] 10 mg PO DAILY #30 tablet 03/02/19 Amox-Tr/K Cl [Augmentin - 875Mg Tablet] 1 tab PO BID #6 tablet 03/02/19 Fluconazole [Diflucan] 150 mg PO ONCE #1 tablet 03/02/19
[2019-03-02] MEDS: ALLOPURINOL 300 MG TABLET (FP) PO SCH (10:08)
[2019-03-02] MEDS: GABAPENTIN 300 MG CAPSULE (FP) PO SCH ×2 (10:08→21:01)
[2019-03-02] MEDS: HEPARIN NA (PORCINE) 5,000 UNITS/ML 1ML VIAL SQ SCH ×2 (10:08→21:00)
[2019-03-02] MEDS: amLODIPine BESYLATE 5 MG TABLET (FP) PO SCH (10:08)
[2019-03-02] MEDS: ACETAMINOPHEN 325 MG TABLET (FP) PO PRN ×2 (10:10→19:38)
--- NOTE | 2019-03-02 19:27 | PN ---
Progress Note, Physician History of Present Illness: Pt without new complaints. Awaiting discharge home tomorrow. States she feels well. - Current Medication List Current Medications: Active Medications Acetaminophen (Tylenol -) 650 mg PO Q4H PRN PRN Reason: PAIN LEVEL 7 - 10 Last Admin: 03/02/19 10:10 Dose: 650 mg Allopurinol (Zyloprim -) 300 mg PO DAILY [facility] Last Admin: 03/02/19 10:08 Dose: 300 mg Alprazolam (Xanax -) 0.5 mg PO BID PRN PRN Reason: ANXIETY Last Admin: 02/26/19 19:22 Dose: 0.5 mg Amlodipine Besylate (Norvasc -) 10 mg PO DAILY [facility] Last Admin: 03/02/19 10:08 Dose: 10 mg Gabapentin (Neurontin -) 300 mg PO BID [facility] Last Admin: 03/02/19 10:08 Dose: 300 mg Heparin Sodium (Porcine) (Heparin -) 5,000 unit SQ BID [facility] Last Admin: 03/02/19 10:08 Dose: Not Given Piperacillin Sod/Tazobactam (Sod 3.375 gm/ Dextrose) 50 mls @ 100 mls/hr IVPB Q8H-IV [facility]; Protocol Last Admin: 03/02/19 18:06 Dose: 100 mls/hr Insulin Aspart (Novolog Vial Sliding Scale -) 1 vial SQ ACHS [facility]; Protocol Last Admin: 03/02/19 17:10 Dose: 2 units Miconazole Nitrate (Miconazole 3) 200 mg PV HS [facility] Last Admin: 03/01/19 21:04 Dose: 200 mg Zolpidem Tartrate (Ambien -) 5 mg PO HS PRN PRN Reason: INSOMNIA Last Admin: 03/01/19 22:47 Dose: 5 mg - Objective Vital Signs: Vital Signs Temperature 98.7 F 03/02/19 16:54 Pulse Rate 80 03/02/19 16:54 Respiratory Rate 20 03/02/19 16:54 Blood Pressure 136/81 03/02/19 16:54 O2 Sat by Pulse Oximetry (%) 98 02/28/19 21:00 Constitutional: Yes: No Distress, Calm Cardiovascular: Yes: Regular Rate and Rhythm Respiratory: Yes: Regular Gastrointestinal: Yes: Normal Bowel Sounds, Soft, Abdomen, Obese Genitourinary: Yes: WNL Integumentary: Yes: WNL Neurological: Yes: Alert, Oriented Labs: CBC, BMP 03/01/19 07:34 03/01/19 07:34 Microbiology 02/26/19 08:45 Blood - Peripheral Venous Blood Culture - Preliminary NO GROWTH OBTAINED AFTER 96 HOURS, INCUBATION TO CONTINUE FOR 1 DAYS. 02/26/19 08:50 Blood - Peripheral Venous Blood Culture - Preliminary NO GROWTH OBTAINED AFTER 96 HOURS, INCUBATION TO CONTINUE FOR 1 DAYS. 02/24/19 15:00 Blood - Peripheral Venous Blood Culture - Final Escherichia Coli 02/24/19 15:00 Blood - Peripheral Venous Blood Culture - Final Escherichia Coli 02/24/19 15:47 Urine - Urine - Catheterized Urine Culture - Final Escherichia Coli Problem List - Problems (1) Diabetes mellitus Code(s): E11.9 - TYPE 2 DIABETES MELLITUS WITHOUT COMPLICATIONS Qualifiers: Diabetes mellitus type: type 2 Diabetes mellitus nursing home insulin use: unspecified terminal make up operator insulin use status Diabetes mellitus complication status : with other specified complication Qualified Code(s): E11.69 - Type 2 diabetes mellitus with other specified complication (2) Fever Code(s): R50.9 - FEVER, UNSPECIFIED Qualifiers: Fever type: unspecified Qualified Code(s): R50.9 - Fever, unspecified (3) UTI (urinary tract infection) Code(s): N39.0 - URINARY TRACT INFECTION, SITE NOT SPECIFIED Qualifiers: Urinary tract infection type: site unspecified Hematuria presence: with hematuria Qualified Code(s): N39.0 - Urinary tract infection, site not specified; R31.9 - Hematuria, unspecified (4) Hydronephrosis with renal calculous obstruction Code(s): N13.2 - HYDRONEPHROSIS WITH RENAL AND URETERAL CALCULOUS OBSTRUCTION (5) Hypertension Code(s): I10 - ESSENTIAL (PRIMARY) HYPERTENSION Qualifiers: Hypertension type: essential hypertension Qualified Code(s): I10 - Essential (primary) hypertension (6) Obesity Code(s): E66.9 - OBESITY, UNSPECIFIED Qualifiers: Obesity type: due to excess calories Body mass index: BMI 50.0-59.9 Assessment/Plan E. coli UTI/Bacteremia DM nephrolithiasis s/p ureteroscopy/lithotripsy HTN Obesity -- IV antibiotics until discharge tomorrow, d/c home on oral -- For outpt removal of stent -- pt clinically improved, repeat cultures neg. Will f/u with PMD
[2019-03-02] MEDS ORDERED: PT OWN MED DRAWER 7, Y5N ONE (20:24)
[2019-03-02] MEDS: MICONAZOLE NITRATE 200 MG VAGINAL SUPPOSITORY PV SCH (21:00)
[2019-03-02] MEDS: ZOLPIDEM TARTRATE 5 MG TABLET PO PRN (22:20)
[2019-03-03] MEDS ORDERED: PIPERACILLIN/TAZOBACTAM 3.375 GM VIAL IVPB ONE ×2 (00:07→09:03)
[2019-03-03] MEDS ORDERED: DEXTROSE 5%-WATER - 50 ML IVPB ONE ×2 (00:07→09:03)
[2019-03-03] MEDS: PIPERACILLIN/TAZOB 3.375 GM 3.375 GM in DEXTROSE 5%-WATER - 50 ML IVPB SCH ×2 (02:07→09:06)
[2019-03-03] MEDS: ALPRAZolam 0.25 MG TABLET PO PRN (02:12)
[2019-03-03] MEDS: INSULIN SLIDING SCALE (NOVOLOG) 1 VIAL SQ SCH (06:31)
[2019-03-03] MEDS: ALLOPURINOL 300 MG TABLET (FP) PO SCH (09:06)
[2019-03-03] MEDS: amLODIPine BESYLATE 5 MG TABLET (FP) PO SCH (09:06)
[2019-03-03] MEDS: HEPARIN NA (PORCINE) 5,000 UNITS/ML 1ML VIAL SQ SCH ×2 (09:06→09:07)
[2019-03-03] MEDS: GABAPENTIN 300 MG CAPSULE (FP) PO SCH (09:06)
[2019-03-03 10:58] VITALS: BP 145/79; PULSE 79; TEMP 98.2
--- NOTE | 2019-03-03 10:58 | PN ---
Progress Note, Physician History of Present Illness: stable doing well no new issues - Current Medication List Current Medications: Active Medications Acetaminophen (Tylenol -) 650 mg PO Q4H PRN PRN Reason: PAIN LEVEL 7 - 10 Last Admin: 03/02/19 19:38 Dose: 650 mg Allopurinol (Zyloprim -) 300 mg PO DAILY [facility] Last Admin: 03/03/19 09:06 Dose: 300 mg Alprazolam (Xanax -) 0.5 mg PO BID PRN PRN Reason: ANXIETY Last Admin: 03/03/19 02:12 Dose: 0.5 mg Amlodipine Besylate (Norvasc -) 10 mg PO DAILY [facility] Last Admin: 03/03/19 09:06 Dose: 10 mg Gabapentin (Neurontin -) 300 mg PO BID [facility] Last Admin: 03/03/19 09:06 Dose: 300 mg Heparin Sodium (Porcine) (Heparin -) 5,000 unit SQ BID [facility] Last Admin: 03/03/19 09:07 Dose: Not Given Piperacillin Sod/Tazobactam (Sod 3.375 gm/ Dextrose) 50 mls @ 100 mls/hr IVPB Q8H-IV [facility]; Protocol Last Admin: 03/03/19 09:06 Dose: 100 mls/hr Insulin Aspart (Novolog Vial Sliding Scale -) 1 vial SQ ACHS [facility]; Protocol Last Admin: 03/03/19 06:31 Dose: 2 units Miconazole Nitrate (Miconazole 3) 200 mg PV HS [facility] Last Admin: 03/02/19 21:00 Dose: 200 mg Zolpidem Tartrate (Ambien -) 5 mg PO HS PRN PRN Reason: INSOMNIA Last Admin: 03/02/19 22:20 Dose: 5 mg - Objective Vital Signs: Vital Signs Temperature 98.4 F 03/03/19 06:57 Pulse Rate 83 03/03/19 06:57 Respiratory Rate 18 03/03/19 09:00 Blood Pressure 140/87 03/03/19 06:57 O2 Sat by Pulse Oximetry (%) 95 03/03/19 09:00 Constitutional: Yes: No Distress, Calm Cardiovascular: Yes: S1, S2 Respiratory: Yes: Regular, CTA Bilaterally Gastrointestinal: Yes: Normal Bowel Sounds, Soft Musculoskeletal: Yes: WNL Extremities: Yes: WNL Neurological: Yes: Alert, Oriented Psychiatric: Yes: Alert, Oriented Labs: CBC, BMP 03/01/19 07:34 03/01/19 07:34 Assessment/Plan Problem List - Problems (1) Diabetes mellitus Code(s): E11.9 - TYPE 2 DIABETES MELLITUS WITHOUT COMPLICATIONS Qualifiers: Diabetes mellitus type: type 2 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 insulin use: unspecified fdc insulin use status Diabetes mellitus complication status : with other specified complication Qualified Code(s): E11.69 - Type 2 diabetes mellitus with other specified complication (2) Fever Code(s): R50.9 - FEVER, UNSPECIFIED Qualifiers: Fever type: unspecified Qualified Code(s): R50.9 - Fever, unspecified (3) UTI (urinary tract infection) Code(s): N39.0 - URINARY TRACT INFECTION, SITE NOT SPECIFIED Qualifiers: Urinary tract infection type: site unspecified Hematuria presence: with hematuria Qualified Code(s): N39.0 - Urinary tract infection, site not specified; R31.9 - Hematuria, unspecified (4) Hydronephrosis with renal calculous obstruction Code(s): N13.2 - HYDRONEPHROSIS WITH RENAL AND URETERAL CALCULOUS OBSTRUCTION (5) Hypertension Code(s): I10 - ESSENTIAL (PRIMARY) HYPERTENSION Qualifiers: Hypertension type: essential hypertension Qualified Code(s): I10 - Essential (primary) hypertension (6) Obesity Code(s): E66.9 - OBESITY, UNSPECIFIED Qualifiers: Obesity type: due to excess calories Body mass index: BMI 50.0-59.9 gm negative bacteremia plan continue current mgmt abx as planned
== END 2019-03-03 11:12 | disposition home or self-care (01) | DRG 698 ==
LOC: JER 14:19 → JERBED 15:32 → J8W 17:49
PROVIDERS: ADMIT Internal Medicine; ATTEND Internal Medicine
DX: T83.593A Infection and inflammatory reaction due to other urinary stents, initial encounter (principal); A41.50 Gram-negative sepsis, unspecified; N39.0 Urinary tract infection, site not specified; Z68.43 Body mass index [BMI] 50.0-59.9, adult; N17.9 Acute kidney failure, unspecified; E66.01 Morbid (severe) obesity due to excess calories; E11.69 Type 2 diabetes mellitus with other specified complication; B96.20 Unspecified Escherichia coli [E. coli] as the cause of diseases classified elsewhere; I10 Essential (primary) hypertension; Y83.9 Surgical procedure, unspecified as the cause of abnormal reaction of the patient, or of later complication, without mention of misadventure at the time of the procedure
CPT/HCPCS: 36415; 74018-TC-FY; 76775-TC; 80048; 80053; 81003; 82962; 83605; 83735; 85025; 85027; 87040; 87086; 87186; 93005; 93010; 99283-25; J1644; J7030

== ENCOUNTER 2019-04-28 07:49 | Inpatient (IN) | payer OTHER ==
[2019-04-28] MEDS ORDERED: ALPRAZolam 0.25 MG TABLET PO PRN (11:04)
--- NOTE | 2019-04-28 11:07 | HP ---
Admitting History and Physical - Primary Care Physician PCP: Amaris Rosales - Admission Chief Complaint: renal stones History of Present Illness: Admitted for preop treatment of chronically infected renal stone prior to lithotripsy. Tentatively will be scheduled for lithothrispys on 05.01.19. Last urine is still positive for e.coli History Source: Patient Limitations to Obtaining History: No Limitations - Past Medical History Cardiovascular: Yes: Other (left bundle branch block) Renal/: Yes: Renal Calculi (known history-has had transcutaneous stone removal over 15 yrs ago) Musculoskeletal: Yes: Chronic low back pain, Other (ostearthritis) Endocrine: Yes: Diabetes Mellitus, Other (obesity) - Past Surgical History Past Surgical History: Yes: Cataract Removal (bilateral 2016), Hysterectomy ( BSO 1995 endometrial hyperplasia), Joint Replacement (left knee 2014 right total hip replacement 2014-postop dropped foot), Tonsillectomy - Smoking History Smoking history: Never smoked Have you smoked in the past 12 months: No If you are a former smoker, when did you quit?: over 35 yrs ago - Alcohol/Substance Use Hx Alcohol Use: No - Social History ADL: Independent History of Recent Travel: No Home Medications - Allergies Allergies/Adverse Reactions: Allergies Allergy/AdvReac Type Severity Reaction Status Date / Time aspirin AdvReac Mild Verified 02/24/19 14:30 oxycodone [From Percocet] AdvReac Mild Verified 02/24/19 14:30 - Home Medications Home Medications: Ambulatory Orders Allopurinol 300 mg PO DAILY 01/23/19 Alprazolam [Xanax] 0.5 mg PO PRN PRN 01/23/19 Baclofen 10 mg PO PRN PRN 01/23/19 Famotidine [Pepcid] 40 mg PO DAILY 01/23/19 Gabapentin 300 mg PO BID 01/23/19 Hydrocodone/Acetaminophen [Hydrocodone-Acetamin 5-325 mg] 1 each PO PRN PRN 07/09 Magnesium Oxide [Magnesium] 1,000 mg PO PRN PRN 01/23/19 Metformin HCl [Glucophage] 1,000 mg PO AM 01/23/19 Sitagliptin Phosphate [Januvia] 50 mg PO DAILY 01/23/19 Zolpidem Tartrate 10 mg PO HS PRN 01/23/19 Acetaminophen [Tylenol .Regular Strength -] 650 mg PO Q6H PRN tablet 01/25/19 Amlodipine Besylate [Norvasc -] 10 mg PO DAILY #30 tablet 03/02/19 Amox-Tr/K Cl [Augmentin - 875Mg Tablet] 1 tab PO BID #6 tablet 03/02/19 Fluconazole [Diflucan] 150 mg PO ONCE #1 tablet 03/02/19 Family Medical History Family Hx Cardiac Disorders: Mother, Sister Family Hx Respiratory Disorders: Mother Review of Systems - Review of Systems Constitutional: reports: No Symptoms HENT: reports: No Symptoms Neck: reports: No Symptoms Cardiovascular: reports: No Symptoms Respiratory: reports: No Symptoms Gastrointestinal: reports: Abdominal Pain Genitourinary: reports: No Symptoms Musculoskeletal: reports: Back Pain, Joint Pain Integumentary: reports: No Symptoms Neurological: reports: No Symptoms Physical Examination Constitutional: Yes: No Distress, Obese Eyes: Yes: Conjunctiva Clear, EOM Intact HENT: Yes: Atraumatic, Normocephalic Neck: Yes: Supple, Trachea Midline Cardiovascular: Yes: Regular Rate and Rhythm Respiratory: Yes: CTA Bilaterally Gastrointestinal: Yes: Normal Bowel Sounds, Soft Musculoskeletal: Yes: Back Pain Extremities: Yes: WNL Edema: No Peripheral Pulses WNL: Yes Integumentary: Yes: WNL Neurological: Yes: WNL, Other (chr right foot drop) ...Motor Strength: WNL Psychiatric: Yes: WNL Labs: Laboratory Results - last 24 hr 04/28/19 04/28/19 04/28/19 11:50 11:50 11:50 WBC 10.2 H RBC 4.57 Hgb 11.7 Hct 37.2 MCV 81.4 MCH 25.5 L MCHC 31.3 L RDW 17.9 H Plt Count 319 MPV 9.4 Absolute Neuts (auto) 7.4 Neutrophils % 73.2 Lymphocytes % 18.4 Monocytes % 7.1 Eosinophils % 0.9 Basophils % 0.4 Nucleated RBC % 0 PT with INR 10.70 INR 0.91 PTT (Actin FS) 34.5 Sodium 140 Potassium 4.6 Chloride 109 H Carbon Dioxide 25 Anion Gap 7 L BUN 20.9 H Creatinine 1.1 Est GFR (CKD-EPI)AfAm 60.16 Est GFR (CKD-EPI)NonAf 51.91 Random Glucose 111 H Calcium 9.0 Total Bilirubin 0.4 AST 12 L ALT 21 Alkaline Phosphatase 90 Total Protein 6.5 Albumin 3.6 Urine Color Urine Appearance Urine pH Ur Specific [place] Urine Protein Urine Glucose (UA) Urine Ketones Urine Blood Urine Nitrite Urine Bilirubin Urine Urobilinogen Ur Leukocyte Esterase Urine WBC (Auto) Urine RBC (Auto) Urine Casts (Auto) U Epithel Cells (Auto) Urine Bacteria (Auto) Urine Yeast (Auto) 04/28/19 13:38 WBC RBC Hgb Hct MCV MCH MCHC RDW Plt Count MPV Absolute Neuts (auto) Neutrophils % Lymphocytes % Monocytes % Eosinophils % Basophils % Nucleated RBC % PT with INR INR PTT (Actin FS) Sodium Potassium Chloride Carbon Dioxide Anion Gap BUN Creatinine Est GFR (CKD-EPI)AfAm Est GFR (CKD-EPI)NonAf Random Glucose Calcium Total Bilirubin AST ALT Alkaline Phosphatase Total Protein Albumin Urine Color Yellow Urine Appearance Clear Urine pH 5.0 Ur Specific [place] 1.018 Urine Protein 1+ H Urine Glucose (UA) Negative Urine Ketones Negative Urine Blood Negative Urine Nitrite Negative Urine Bilirubin Negative Urine Urobilinogen 0.2 Ur Leukocyte Esterase Negative Urine WBC (Auto) 8 Urine RBC (Auto) 6 Urine Casts (Auto) 2 U Epithel Cells (Auto) 6.7 Urine Bacteria (Auto) 102.0 Urine Yeast (Auto) Present Problem List - Problems (1) Renal calculi Code(s): N20.0 - CALCULUS OF KIDNEY (2) Diabetes mellitus Code(s): E11.9 - TYPE 2 DIABETES MELLITUS WITHOUT COMPLICATIONS Qualifiers: Diabetes mellitus type: type 2 Diabetes mellitus terminal gauger supervisor insulin use: without senior care use Diabetes mellitus complication status: with other specified complication Qualified Code(s): E11.69 - Type 2 diabetes mellitus with other specified complication (3) Hypertension Code(s): I10 - ESSENTIAL (PRIMARY) HYPERTENSION Qualifiers: Hypertension type: essential hypertension Qualified Code(s): I10 - Essential (primary) hypertension (4) Obesity Code(s): E66.9 - OBESITY, UNSPECIFIED Qualifiers: Obesity type: due to excess calories Body mass index: BMI 50.0-59.9 (5) UTI (urinary tract infection) Code(s): N39.0 - URINARY TRACT INFECTION, SITE NOT SPECIFIED Qualifiers: Urinary tract infection type: site unspecified Hematuria presence: with hematuria Qualified Code(s): N39.0 - Urinary tract infection, site not specified; R31.9 - Hematuria, unspecified Assessment/Plan iv abx preop lithotripsy ID consult appreciated gu consult pending check ekg, cxr preop CT to r/o renal obstruction
[2019-04-28] MEDS ORDERED: CEFTRIAXONE 1 GM in DEXTROSE 5%-WATER - 50 ML IVPB ONE (11:30)
[2019-04-28 12:15] LABS: BASO % 0.4 % (0-2.0); EOS % 0.9 % (0-4.5); HEMATOCRIT 37.2 % (32.4-45.2); HEMOGLOBIN 11.7 GM/dL (10.7-15.3); LYMPH % 18.4 % (8-40); MCH 25.5 pg (25.7-33.7); MCHC 31.3 g/dl (32.0-36.0); MEAN CELL VOLUME 81.4 fl (80-96); MEAN PLT VOLUME 9.4 fl (7.5-11.1); MONO % 7.1 % (3.8-10.2); NEUT % 73.2 % (42.8-82.8); PLATELET COUNT 319 K/MM3 (134-434); RBC 4.57 M/mm3 (3.60-5.2); RDW 17.9 % (11.6-15.6); WHITE BLOOD COUNT 10.2 K/mm3 (4.0-10.0)
[2019-04-28 12:24] LABS: INR 0.91 (0.83-1.09); PROTHROMBIN TIME (PATIENT) 10.7 SEC (9.7-13.0)
[2019-04-28 12:27] LABS: ACTIVATED PTT 34.5 SECONDS (25.2-36.5)
[2019-04-28 12:32] LABS: ALBUMIN 3.6 g/dl (3.4-5.0); BILIRUBIN,TOTAL 0.4 mg/dL (0.2-1); BLOOD UREA NITROGEN 20.9 mg/dL (7-18); CREATININE 1.1 mg/dL (0.55-1.3); POTASSIUM 4.6 mmol/L (3.5-5.1); TOT PROT 6.5 g/dl (6.4-8.2)
--- NOTE | 2019-04-28 12:32 | CON.ID ---
Consult Consult Specialty:: infectious diseases Referred by:: Reason for Consultation:: uti - History of Present Illness Chief Complaint: no complaints History of Present Illness: patient with history of multiple kidney stones with uti now admitted to the hospital with plan for lithotrypsy patients urine checked continues to have uti denies any fever or any other issues - History Source History Provided By: Patient Limitations to Obtaining History: No Limitations - Past Medical History Cardio/Vascular: Yes: Other (left bundle branch block) Renal/: Yes: Renal Calculi (known history-has had transcutaneous stone removal over 15 yrs ago) ...: No Musculoskeletal: Yes: Chronic low back pain, Other (ostearthritis) Endocrine: Yes: Diabetes Mellitus, Other (obesity) - Past Surgical History Past Surgical History: Yes: Cataract Removal (bilateral 2016), Hysterectomy ( BSO 1995 endometrial hyperplasia), Joint Replacement (left knee 2014 right total hip replacement 2014-postop dropped foot), Tonsillectomy - Alcohol/Substance Use Hx Alcohol Use: No - Smoking History Smoking history: Never smoked Have you smoked in the past 12 months: No If you are a former smoker, when did you quit?: over 35 yrs ago - Social History ADL: Independent History of Recent Travel: No Home Medications - Allergies Allergies/Adverse Reactions: Allergies Allergy/AdvReac Type Severity Reaction Status Date / Time aspirin AdvReac Mild Verified 02/24/19 14:30 oxycodone [From Percocet] AdvReac Mild Verified 02/24/19 14:30 - Home Medications Home Medications: Ambulatory Orders Allopurinol 300 mg PO DAILY 01/23/19 Alprazolam [Xanax] 0.5 mg PO PRN PRN 01/23/19 Baclofen 10 mg PO PRN PRN 01/23/19 Famotidine [Pepcid] 40 mg PO DAILY 01/23/19 Gabapentin 300 mg PO BID 01/23/19 Hydrocodone/Acetaminophen [Hydrocodone-Acetamin 5-325 mg] 1 each PO PRN PRN 07/09 Magnesium Oxide [Magnesium] 1,000 mg PO PRN PRN 01/23/19 Metformin HCl [Glucophage] 1,000 mg PO AM 01/23/19 Sitagliptin Phosphate [Januvia] 50 mg PO DAILY 01/23/19 Zolpidem Tartrate 10 mg PO HS PRN 01/23/19 Acetaminophen [Tylenol .Regular Strength -] 650 mg PO Q6H PRN tablet 01/25/19 Amlodipine Besylate [Norvasc -] 10 mg PO DAILY #30 tablet 03/02/19 Amox-Tr/K Cl [Augmentin - 875Mg Tablet] 1 tab PO BID #6 tablet 03/02/19 Fluconazole [Diflucan] 150 mg PO ONCE #1 tablet 03/02/19 Review of Systems - Review of Systems Constitutional: reports: No Symptoms Eyes: reports: No Symptoms HENT: reports: No Symptoms Neck: reports: No Symptoms Cardiovascular: reports: No Symptoms Respiratory: reports: No Symptoms Gastrointestinal: reports: No Symptoms Genitourinary: reports: No Symptoms Musculoskeletal: reports: No Symptoms Integumentary: reports: No Symptoms Neurological: reports: No Symptoms Endocrine: reports: No Symptoms Hematology/Lymphatic: reports: No Symptoms Psychiatric: reports: No Symptoms Physical Exam Vital Signs: Vital Signs Temperature 98 F 04/28/19 11:13 Pulse Rate 77 04/28/19 11:13 Respiratory Rate 18 04/28/19 11:13 Blood Pressure 118/84 04/28/19 11:13 O2 Sat by Pulse Oximetry (%) Constitutional: Yes: Well Nourished, No Distress, Calm Cardiovascular: Yes: Regular Rate and Rhythm Respiratory: Yes: Regular, CTA Bilaterally Gastrointestinal: Yes: Normal Bowel Sounds, Soft Musculoskeletal: Yes: WNL Extremities: Yes: WNL Neurological: Yes: Alert, Oriented Psychiatric: Yes: Alert, Oriented Labs: CBC, BMP 04/28/19 11:50 Assessment/Plan Urosepsis leukocytosis HTN NIDDM Obesity plan continue current mgmt will start patient on ceftriaxone plan for lithotrypsy rest as per the team
[2019-04-28] MEDS ORDERED: DEXTROSE 5%-WATER - 50 ML IVPB ONE (13:32)
[2019-04-28] MEDS ORDERED: cefTRIAXone SODIUM 1 GM VIAL ONE (13:32)
[2019-04-28] MEDS: CEFTRIAXONE 1 GM in DEXTROSE 5%-WATER - 50 ML IVPB SCH (13:49)
[2019-04-28 13:51] VITALS: BMI 51.4
[2019-04-28 14:31] LABS: EPI CELLS 6.7 /HPF (0-5/HPF); HYALINE CASTS 2 /lpf (0-8); URINE APPEARANCE CLEAR; URINE BILIRUBIN NEGATIVE (NEGATIVE); URINE COLOR YELLOW; URINE GLUCOSE (UA) NEGATIVE (NEGATIVE); URINE KETONE NEGATIVE (NEGATIVE); URINE LEUK ESTERASE NEGATIVE (NEGATIVE); URINE NITRITE NEGATIVE (NEGATIVE); URINE PROTEIN 1+ (NEGATIVE); URINE RBC 6 /hpf (0-4); URINE UROBILINOGEN 0.2 mg/dL (0.2-1.0); URINE WBC 8 /hpf (0-5)
[2019-04-28 15:34] LABS: YEAST PRESENT (NEGATIVE)
[2019-04-28] MEDS ORDERED: metFORMIN HCL 500 MG TABLET (FP) PO SCH (16:30)
[2019-04-28] MEDS: metFORMIN HCL 500 MG TABLET (FP) PO SCH (17:24)
[2019-04-28] MEDS: ACETAMINOPHEN 325 MG TABLET (FP) PO PRN (22:12)
[2019-04-28] MEDS: ZOLPIDEM TARTRATE 5 MG TABLET PO PRN (22:12)
[2019-04-29] MEDS: ACETAMINOPHEN 325 MG TABLET (FP) PO PRN ×3 (04:23→22:56)
[2019-04-29] MEDS: sitaGLIPtin PHOSPHATE 50 MG TABLET PO SCH (06:23)
[2019-04-29] MEDS: metFORMIN HCL 500 MG TABLET (FP) PO SCH ×2 (06:23→17:12)
[2019-04-29] MEDS ORDERED: sitaGLIPtin PHOSPHATE 50 MG TABLET PO SCH (07:00)
--- NOTE | 2019-04-29 09:02 | PN ---
Progress Note (short form) - Note Progress Note: CBC, BMP 04/28/19 11:50 04/28/19 11:50 Vital Signs Period Temp Pulse Resp BP Sys/[place] Pulse Ox Last 24 Hr 98 F-98.2 F 70-94 18- 118-149/76-84 s1s2 rrr lungs cta abd soft nt tr ankle edema aaox3 infected renal stones, awaiting lithotripsy obesity HTN NIDDM continue iv abx continue home medications oob as tolerated Problem List - Problems (1) Renal calculi Code(s): N20.0 - CALCULUS OF KIDNEY (2) Diabetes mellitus Code(s): E11.9 - TYPE 2 DIABETES MELLITUS WITHOUT COMPLICATIONS Qualifiers: Diabetes mellitus type: type 2 Diabetes mellitus longwall machine operator helper insulin use: without longwall machine operator helper use Diabetes mellitus complication status: with other specified complication Qualified Code(s): E11.69 - Type 2 diabetes mellitus with other specified complication (3) Hypertension Code(s): I10 - ESSENTIAL (PRIMARY) HYPERTENSION Qualifiers: Hypertension type: essential hypertension Qualified Code(s): I10 - Essential (primary) hypertension (4) Obesity Code(s): E66.9 - OBESITY, UNSPECIFIED Qualifiers: Obesity type: due to excess calories Body mass index: BMI 50.0-59.9 (5) UTI (urinary tract infection) Code(s): N39.0 - URINARY TRACT INFECTION, SITE NOT SPECIFIED Qualifiers: Urinary tract infection type: site unspecified Hematuria presence: with hematuria Qualified Code(s): N39.0 - Urinary tract infection, site not specified; R31.9 - Hematuria, unspecified
--- NOTE | 2019-04-29 09:30 | EKG ---
Test Reason : Blood Pressure : / mmHG Vent. Rate : 074 BPM Atrial Rate : 074 BPM P-R Int : 180 ms QRS Dur : 136 ms QT Int : 418 ms P-R-T Axes : 046 -51 102 degrees QTc Int : 463 ms NORMAL SINUS RHYTHM LEFT AXIS DEVIATION LEFT BUNDLE BRANCH BLOCK ABNORMAL ECG WHEN COMPARED WITH ECG OF 24-FEB-2019 15:47, NO SIGNIFICANT CHANGE WAS FOUND Confirmed by Shiva Alvarez MD ([id number]) on 04/29/2019 9:29:49 AM Referred By: MEGHA BRYANT Confirmed By:Shiva Alvarez MD
[2019-04-29] MEDS: ENOXAPARIN NA (PORCINE) 40 MG/0.4 ML DISP.SYRIN SQ SCH ×2 (10:15→10:46)
[2019-04-29] MEDS ORDERED: cefTRIAXone SODIUM 1 GM VIAL ONE (10:37)
[2019-04-29] MEDS ORDERED: DEXTROSE 5%-WATER - 50 ML IVPB ONE (10:38)
[2019-04-29] MEDS: FAMOTIDINE 20 MG TABLET PO SCH (10:46)
[2019-04-29] MEDS: GABAPENTIN 300 MG CAPSULE (FP) PO SCH ×2 (10:46→21:34)
[2019-04-29] MEDS: ALLOPURINOL 300 MG TABLET (FP) PO SCH (10:46)
[2019-04-29] MEDS: amLODIPine BESYLATE 10 MG TABLET (FP) PO SCH (10:46)
[2019-04-29] MEDS: CEFTRIAXONE 1 GM in DEXTROSE 5%-WATER - 50 ML IVPB SCH (10:46)
--- NOTE | 2019-04-29 12:20 | PN ---
Progress Note, Physician History of Present Illness: stable no new issues - Current Medication List Current Medications: Active Medications Acetaminophen (Tylenol -) 650 mg PO Q4H PRN PRN Reason: PAIN LEVEL 1 - 3 Last Admin: 04/29/19 04:23 Dose: 650 mg Allopurinol (Zyloprim -) 300 mg PO DAILY [facility] Last Admin: 04/29/19 10:46 Dose: 300 mg Alprazolam (Xanax -) 0.5 mg PO BID PRN PRN Reason: ANXIETY Amlodipine Besylate (Norvasc -) 10 mg PO DAILY [facility] Last Admin: 04/29/19 10:46 Dose: 10 mg Enoxaparin Sodium (Lovenox -) 40 mg SQ DAILY [facility] Last Admin: 04/29/19 10:46 Dose: 40 mg Famotidine (Pepcid -) 20 mg PO DAILY [facility] Last Admin: 04/29/19 10:46 Dose: 20 mg Gabapentin (Neurontin -) 300 mg PO BID [facility] Last Admin: 04/29/19 10:46 Dose: 300 mg Ceftriaxone Sodium 1 gm/ (Dextrose) 50 mls @ 100 mls/hr IVPB DAILY [facility]; Protocol Last Admin: 04/29/19 10:46 Dose: 100 mls/hr Metformin HCl (Glucophage -) 1,000 mg PO BIDAC [facility] Last Admin: 04/29/19 06:23 Dose: 1,000 mg Sitagliptin Phosphate (Januvia -) 50 mg PO ACBK [facility] Last Admin: 04/29/19 06:23 Dose: 50 mg Zolpidem Tartrate (Ambien -) 5 mg PO HS PRN PRN Reason: INSOMNIA Last Admin: 04/28/19 22:12 Dose: 5 mg - Objective Vital Signs: Vital Signs Temperature 98 F 04/29/19 11:04 Pulse Rate 74 04/29/19 11:04 Respiratory Rate 18 04/29/19 09:00 Blood Pressure 128/60 04/29/19 11:04 O2 Sat by Pulse Oximetry (%) Constitutional: Yes: No Distress, Calm Cardiovascular: Yes: S1, S2 Respiratory: Yes: Regular, CTA Bilaterally Gastrointestinal: Yes: Normal Bowel Sounds, Soft Musculoskeletal: Yes: WNL Extremities: Yes: WNL Neurological: Yes: Alert, Oriented Psychiatric: Yes: Alert, Oriented Labs: CBC, BMP 04/28/19 11:50 04/28/19 11:50 INR, PTT INR 0.91 (0.83-1.09) 04/28/19 11:50 Assessment/Plan Problem List - Problems (1) Renal calculi Code(s): N20.0 - CALCULUS OF KIDNEY (2) Diabetes mellitus Code(s): E11.9 - TYPE 2 DIABETES MELLITUS WITHOUT COMPLICATIONS Qualifiers: Diabetes mellitus type: type 2 Diabetes mellitus intermediate frame tender insulin use: without detention use Diabetes mellitus complication status: with other specified complication Qualified Code(s): E11.69 - Type 2 diabetes mellitus with other specified complication (3) Hypertension Code(s): I10 - ESSENTIAL (PRIMARY) HYPERTENSION Qualifiers: Hypertension type: essential hypertension Qualified Code(s): I10 - Essential (primary) hypertension (4) Obesity Code(s): E66.9 - OBESITY, UNSPECIFIED Qualifiers: Obesity type: due to excess calories Body mass index: BMI 50.0-59.9 (5) UTI (urinary tract infection) Code(s): N39.0 - URINARY TRACT INFECTION, SITE NOT SPECIFIED Qualifiers: Urinary tract infection type: site unspecified Hematuria presence: with hematuria Qualified Code(s): N39.0 - Urinary tract infection, site not specified; R31.9 - Hematuria, unspecified plan continue current mgmt iv abx for surgery on rest as per the team
--- NOTE | 2019-04-29 12:38 | CON.GU ---
Consult Consult Specialty:: Urology Referred by:: Medical service Reason for Consultation:: Left renal calculi UTI - History of Present Illness Chief Complaint: UTI History of Present Illness: 68 yo female w known large left renal calculi now w UTI Ucx pos currently being tx w abx - Past Medical History Cardio/Vascular: Yes: Other (left bundle branch block) Renal/: Yes: Renal Calculi (known history-has had transcutaneous stone removal over 15 yrs ago) ...: No Musculoskeletal: Yes: Chronic low back pain, Other (ostearthritis) Endocrine: Yes: Diabetes Mellitus, Other (obesity) - Past Surgical History Past Surgical History: Yes: Cataract Removal (bilateral 2016), Hysterectomy ( BSO 1995 endometrial hyperplasia), Joint Replacement (left knee 2014 right total hip replacement 2014-postop dropped foot), Tonsillectomy - Alcohol/Substance Use Hx Alcohol Use: No - Smoking History Smoking history: Never smoked Have you smoked in the past 12 months: No If you are a former smoker, when did you quit?: over 35 yrs ago - Social History ADL: Independent History of Recent Travel: No Home Medications - Allergies Allergies/Adverse Reactions: Allergies Allergy/AdvReac Type Severity Reaction Status Date / Time aspirin AdvReac Mild Verified 02/24/19 14:30 oxycodone [From Percocet] AdvReac Mild Verified 02/24/19 14:30 - Home Medications Home Medications: Ambulatory Orders Allopurinol 300 mg PO DAILY 01/23/19 Alprazolam [Xanax] 0.5 mg PO PRN PRN 01/23/19 Baclofen 10 mg PO PRN PRN 01/23/19 Famotidine [Pepcid] 40 mg PO DAILY 01/23/19 Gabapentin 300 mg PO BID 01/23/19 Hydrocodone/Acetaminophen [Hydrocodone-Acetamin 5-325 mg] 1 each PO PRN PRN 07/09 Magnesium Oxide [Magnesium] 1,000 mg PO PRN PRN 01/23/19 Metformin HCl [Glucophage] 1,000 mg PO AM 01/23/19 Sitagliptin Phosphate [Januvia] 50 mg PO DAILY 01/23/19 Zolpidem Tartrate 10 mg PO HS PRN 01/23/19 Acetaminophen [Tylenol .Regular Strength -] 650 mg PO Q6H PRN tablet 01/25/19 Amlodipine Besylate [Norvasc -] 10 mg PO DAILY #30 tablet 03/02/19 Amox-Tr/K Cl [Augmentin - 875Mg Tablet] 1 tab PO BID #6 tablet 03/02/19 Fluconazole [Diflucan] 150 mg PO ONCE #1 tablet 03/02/19 Review of Systems - Review of Systems Genitourinary: reports: Burning, Dysuria, Urgency Physical Exam- Vital Signs: Vital Signs Temperature 98 F 04/29/19 11:04 Pulse Rate 74 04/29/19 11:04 Respiratory Rate 18 04/29/19 09:00 Blood Pressure 128/60 04/29/19 11:04 O2 Sat by Pulse Oximetry (%) Labs: CBC, BMP 04/28/19 11:50 04/28/19 11:50 Imaging - Results Cat Scan: Report Reviewed Problem List - Problems (1) UTI (urinary tract infection) Assessment/Plan: Cureently tx Follow repeat cultures Code(s): N39.0 - URINARY TRACT INFECTION, SITE NOT SPECIFIED Qualifiers: Urinary tract infection type: site unspecified Hematuria presence: with hematuria Qualified Code(s): N39.0 - Urinary tract infection, site not specified; R31.9 - Hematuria, unspecified (2) Left renal stone Assessment/Plan: Plan for endoscopic management likely will require multiple procedures based on stone size Code(s): N20.0 - CALCULUS OF KIDNEY
[2019-04-29] MEDS: ZOLPIDEM TARTRATE 5 MG TABLET PO PRN (22:56)
[2019-04-30] MEDS: ACETAMINOPHEN 325 MG TABLET (FP) PO PRN ×2 (05:46→23:08)
[2019-04-30] MEDS: metFORMIN HCL 500 MG TABLET (FP) PO SCH ×2 (06:13→16:31)
[2019-04-30] MEDS: sitaGLIPtin PHOSPHATE 50 MG TABLET PO SCH (06:13)
--- NOTE | 2019-04-30 08:23 | PN ---
Progress Note (short form) - Note Progress Note: Vital Signs Period Temp Pulse Resp BP Sys/Loredo Pulse Ox Last 24 Hr 97.1 F-98.1 F 69-79 18-20 128-147/60-80 s1s2 rrr lungs cta abd soft nt tr ankle edema aaox3 infected renal stones, awaiting lithotripsy obesity HTN NIDDM continue iv abx continue home medications oob as tolerated UCX <[id number] ecoli no medical contraindication to procedure Problem List - Problems (1) Renal calculi Code(s): N20.0 - CALCULUS OF KIDNEY (2) Diabetes mellitus Code(s): E11.9 - TYPE 2 DIABETES MELLITUS WITHOUT COMPLICATIONS Qualifiers: Diabetes mellitus type: type 2 Diabetes mellitus group home insulin use: without vermin exterminator use Diabetes mellitus complication status: with other specified complication Qualified Code(s): E11.69 - Type 2 diabetes mellitus with other specified complication (3) Hypertension Code(s): I10 - ESSENTIAL (PRIMARY) HYPERTENSION Qualifiers: Hypertension type: essential hypertension Qualified Code(s): I10 - Essential (primary) hypertension (4) Obesity Code(s): E66.9 - OBESITY, UNSPECIFIED Qualifiers: Obesity type: due to excess calories Body mass index: BMI 50.0-59.9 (5) UTI (urinary tract infection) Code(s): N39.0 - URINARY TRACT INFECTION, SITE NOT SPECIFIED Qualifiers: Urinary tract infection type: site unspecified Hematuria presence: with hematuria Qualified Code(s): N39.0 - Urinary tract infection, site not specified; R31.9 - Hematuria, unspecified
[2019-04-30] MEDS ORDERED: cefTRIAXone SODIUM 1 GM VIAL ONE (09:16)
[2019-04-30] MEDS ORDERED: DEXTROSE 5%-WATER - 50 ML IVPB ONE (09:16)
[2019-04-30] MEDS: FAMOTIDINE 20 MG TABLET PO SCH (09:21)
[2019-04-30] MEDS: ALLOPURINOL 300 MG TABLET (FP) PO SCH (09:21)
[2019-04-30] MEDS: amLODIPine BESYLATE 10 MG TABLET (FP) PO SCH (09:22)
[2019-04-30] MEDS: CEFTRIAXONE 1 GM in DEXTROSE 5%-WATER - 50 ML IVPB SCH (09:22)
[2019-04-30] MEDS: GABAPENTIN 300 MG CAPSULE (FP) PO SCH ×2 (09:22→21:10)
[2019-04-30] MEDS: ENOXAPARIN NA (PORCINE) 40 MG/0.4 ML DISP.SYRIN SQ SCH (09:28)
--- NOTE | 2019-04-30 12:22 | PN ---
Progress Note, Physician History of Present Illness: stable doing well - Current Medication List Current Medications: Active Medications Acetaminophen (Tylenol -) 650 mg PO Q4H PRN PRN Reason: PAIN LEVEL 1 - 3 Last Admin: 04/30/19 05:46 Dose: 650 mg Allopurinol (Zyloprim -) 300 mg PO DAILY [facility] Last Admin: 04/30/19 09:21 Dose: 300 mg Alprazolam (Xanax -) 0.5 mg PO BID PRN PRN Reason: ANXIETY Amlodipine Besylate (Norvasc -) 10 mg PO DAILY [facility] Last Admin: 04/30/19 09:22 Dose: 10 mg Enoxaparin Sodium (Lovenox -) 40 mg SQ DAILY [facility] Last Admin: 04/30/19 09:28 Dose: Not Given Famotidine (Pepcid -) 20 mg PO DAILY [facility] Last Admin: 04/30/19 09:21 Dose: 20 mg Gabapentin (Neurontin -) 300 mg PO BID [facility] Last Admin: 04/30/19 09:22 Dose: 300 mg Ceftriaxone Sodium 1 gm/ (Dextrose) 50 mls @ 100 mls/hr IVPB DAILY [facility]; Protocol Last Admin: 04/30/19 09:22 Dose: 100 mls/hr Metformin HCl (Glucophage -) 1,000 mg PO BIDAC [facility] Last Admin: 04/30/19 06:13 Dose: 1,000 mg Sitagliptin Phosphate (Januvia -) 50 mg PO ACBK [facility] Last Admin: 04/30/19 06:13 Dose: 50 mg Zolpidem Tartrate (Ambien -) 5 mg PO HS PRN PRN Reason: INSOMNIA Last Admin: 04/29/19 22:56 Dose: 5 mg - Objective Vital Signs: Vital Signs Temperature 98.5 F 04/30/19 10:00 Pulse Rate 79 04/30/19 10:00 Respiratory Rate 16 04/30/19 10:00 Blood Pressure 145/81 04/30/19 10:00 O2 Sat by Pulse Oximetry (%) Constitutional: Yes: No Distress, Calm Cardiovascular: Yes: S1, S2 Respiratory: Yes: Regular, CTA Bilaterally Musculoskeletal: Yes: WNL Extremities: Yes: WNL Neurological: Yes: Alert, Oriented Psychiatric: Yes: Alert, Oriented Labs: CBC, BMP 04/28/19 11:50 04/28/19 11:50 INR, PTT INR 0.91 (0.83-1.09) 04/28/19 11:50 Assessment/Plan Problem List - Problems (1) Renal calculi Code(s): N20.0 - CALCULUS OF KIDNEY (2) Diabetes mellitus Code(s): E11.9 - TYPE 2 DIABETES MELLITUS WITHOUT COMPLICATIONS Qualifiers: Diabetes mellitus type: type 2 Diabetes mellitus termite exterminator insulin use: without termite exterminator use Diabetes mellitus complication status: with other specified complication Qualified Code(s): E11.69 - Type 2 diabetes mellitus with other specified complication (3) Hypertension Code(s): I10 - ESSENTIAL (PRIMARY) HYPERTENSION Qualifiers: Hypertension type: essential hypertension Qualified Code(s): I10 - Essential (primary) hypertension (4) Obesity Code(s): E66.9 - OBESITY, UNSPECIFIED Qualifiers: Obesity type: due to excess calories Body mass index: BMI 50.0-59.9 (5) UTI (urinary tract infection) Code(s): N39.0 - URINARY TRACT INFECTION, SITE NOT SPECIFIED Qualifiers: Urinary tract infection type: site unspecified Hematuria presence: with hematuria Qualified Code(s): N39.0 - Urinary tract infection, site not specified; R31.9 - Hematuria, unspecified plan continue current mgmt iv abx for surgery on rest as per the team
[2019-04-30] MEDS: ZOLPIDEM TARTRATE 5 MG TABLET PO PRN (23:06)
[2019-05-01] MEDS: metFORMIN HCL 500 MG TABLET (FP) PO SCH ×2 (06:13→17:04)
[2019-05-01] MEDS: sitaGLIPtin PHOSPHATE 50 MG TABLET PO SCH (06:13)
--- NOTE | 2019-05-01 09:08 | PN ---
Progress Note (short form) - Note Progress Note: CBC, BMP 04/28/19 11:50 04/28/19 11:50 Vital Signs Period Temp Pulse Resp BP Sys/Loredo Pulse Ox Last 24 Hr 97.4 F-98.8 F 79-84 16-20 145-157/70-82 s1s2 rrr lungs cta abd soft nt no edema aaox3 mild phlebitis over iv site infected renal stones, awaiting lithotripsy today obesity HTN NIDDM continue iv abx continue home medications oob as tolerated UCX <[id number] ecoli no medical contraindication to procedure change iv access will continue abx iv for 2 more day postop Problem List - Problems (1) Renal calculi Code(s): N20.0 - CALCULUS OF KIDNEY (2) Diabetes mellitus Code(s): E11.9 - TYPE 2 DIABETES MELLITUS WITHOUT COMPLICATIONS Qualifiers: Diabetes mellitus type: type 2 Diabetes mellitus continuous churn buttermaker insulin use: without continuous churn buttermaker use Diabetes mellitus complication status: with other specified complication Qualified Code(s): E11.69 - Type 2 diabetes mellitus with other specified complication (3) Hypertension Code(s): I10 - ESSENTIAL (PRIMARY) HYPERTENSION Qualifiers: Hypertension type: essential hypertension Qualified Code(s): I10 - Essential (primary) hypertension (4) Obesity Code(s): E66.9 - OBESITY, UNSPECIFIED Qualifiers: Obesity type: due to excess calories Body mass index: BMI 50.0-59.9 (5) UTI (urinary tract infection) Code(s): N39.0 - URINARY TRACT INFECTION, SITE NOT SPECIFIED Qualifiers: Urinary tract infection type: site unspecified Hematuria presence: with hematuria Qualified Code(s): N39.0 - Urinary tract infection, site not specified; R31.9 - Hematuria, unspecified
[2019-05-01 09:19] LABS: BASO % 0.4 % (0-2.0); EOS % 0.8 % (0-4.5); HEMATOCRIT 36.7 % (32.4-45.2); HEMOGLOBIN 11.7 GM/dL (10.7-15.3); LYMPH % 15.4 % (8-40); MCH 25.8 pg (25.7-33.7); MCHC 31.9 g/dl (32.0-36.0); MEAN PLT VOLUME 9.4 fl (7.5-11.1); MONO % 6.4 % (3.8-10.2); PLATELET COUNT 295 K/MM3 (134-434); RBC 4.54 M/mm3 (3.60-5.2); RDW 17.2 % (11.6-15.6); WHITE BLOOD COUNT 9.1 K/mm3 (4.0-10.0)
[2019-05-01] MEDS ORDERED: MIDAZOLAM HCL 2 MG/2 ML SINGLE DOSE VIAL ONE ×2 (09:29→12:00)
[2019-05-01] MEDS ORDERED: SEVOFLURANE 250 ML BTL ONE (09:29)
[2019-05-01] MEDS ORDERED: cefTRIAXone SODIUM 1 GM VIAL ONE (09:33)
[2019-05-01] MEDS ORDERED: DEXTROSE 5%-WATER - 50 ML IVPB ONE (09:34)
[2019-05-01 09:47] LABS: ALBUMIN 3.8 g/dl (3.4-5.0); BILIRUBIN,TOTAL 0.6 mg/dL (0.2-1); BLOOD UREA NITROGEN 19.7 mg/dL (7-18); CALCIUM 9.2 mg/dL (8.5-10.1); CREATININE 1.1 mg/dL (0.55-1.3); TOT PROT 6.7 g/dl (6.4-8.2)
[2019-05-01] MEDS: amLODIPine BESYLATE 10 MG TABLET (FP) PO SCH (09:57)
[2019-05-01] MEDS ORDERED: GENTAMICIN SO4 80 MG/2 ML VIAL ONE (11:58)
[2019-05-01] MEDS ORDERED: ceFAZolin SODIUM 1 GM VIAL IVPB ONE (11:59)
[2019-05-01] MEDS ORDERED: GENTAMICIN SO4 80 MG/2 ML VIAL IVPB ONE (12:02)
--- NOTE | 2019-05-01 12:20 | PN ---
Progress Note, Physician - Current Medication List Current Medications: Active Medications Acetaminophen (Tylenol -) 650 mg PO Q4H PRN PRN Reason: PAIN LEVEL 1 - 3 Last Admin: 04/30/19 23:08 Dose: 650 mg Allopurinol (Zyloprim -) 300 mg PO DAILY [facility] Last Admin: 04/30/19 09:21 Dose: 300 mg Alprazolam (Xanax -) 0.5 mg PO BID PRN PRN Reason: ANXIETY Last Admin: 04/30/19 21:11 Dose: 0.5 mg Amlodipine Besylate (Norvasc -) 10 mg PO DAILY [facility] Last Admin: 04/30/19 09:22 Dose: 10 mg Enoxaparin Sodium (Lovenox -) 40 mg SQ DAILY [facility] Last Admin: 04/30/19 09:28 Dose: Not Given Famotidine (Pepcid -) 20 mg PO DAILY [facility] Last Admin: 04/30/19 09:21 Dose: 20 mg Gabapentin (Neurontin -) 300 mg PO BID [facility] Last Admin: 04/30/19 21:10 Dose: 300 mg Ceftriaxone Sodium 1 gm/ (Dextrose) 50 mls @ 100 mls/hr IVPB DAILY [facility]; Protocol Last Admin: 04/30/19 09:22 Dose: 100 mls/hr Metformin HCl (Glucophage -) 1,000 mg PO BIDAC [facility] Last Admin: 05/01/19 06:13 Dose: Not Given Sitagliptin Phosphate (Januvia -) 50 mg PO ACBK [facility] Last Admin: 05/01/19 06:13 Dose: Not Given Zolpidem Tartrate (Ambien -) 5 mg PO HS PRN PRN Reason: INSOMNIA Last Admin: 04/30/19 23:06 Dose: 5 mg - Objective Vital Signs: Vital Signs Temperature 97.4 F L 05/01/19 05:58 Pulse Rate 79 05/01/19 05:58 Respiratory Rate 20 05/01/19 10:00 Blood Pressure 156/82 05/01/19 05:58 O2 Sat by Pulse Oximetry (%) Labs: CBC, BMP 05/01/19 08:42 05/01/19 08:42 INR, PTT INR 0.91 (0.83-1.09) 04/28/19 11:50
--- NOTE | 2019-05-01 12:55 | OP ---
Operative Note - Note: Operative Date: 05/01/19 Pre-Operative Diagnosis: large left Kid stones Operation: laser lithotripsy/stent Post-Operative Diagnosis: Same as Pre-op Surgeon: Anshu Covington Anesthesiologist/SIDEROGRAPHER: Josee Luis MD Anesthesia: Spinal Estimated Blood Loss (mls): 1 Drains & Tubes with Location: 8fr 24cm stent Operative Report Dictated: Yes
[2019-05-01] MEDS ORDERED: ONDANSETRON 4 MG/2 ML VIAL IVPUSH PRN (13:13)
--- NOTE | 2019-05-01 13:18 | OP ---
DATE OF OPERATION: 05/01/2019 PREOPERATIVE DIAGNOSIS: Large left kidney stone burden and recurring . POSTOPERATIVE DIAGNOSIS: Large left kidney stone burden and recurring . PROCEDURE: Cystoscopy, left ureteroscopy, laser lithotripsy, and stent placement. SURGEON: Federico Richards MD INDICATIONS: Patient is a 68-year-old female with recurrent nephrolithiasis and recurrent UTI as a result. Had right-sided lithotripsy done several months ago due to obstructing stones and with this side cleared, now attention is turned to the left side. In light of a recurring UTI, she was admitted for IV antibiotics for several days 1st then scheduled for a ureteroscopy, laser lithotripsy. Risks, benefits, and alternatives discussed at least. DESCRIPTION OF PROCEDURE: After informed consent was obtained, patient taken to OR and placed supine upon the operating table. Cardiac monitoring was administered. Spinal anesthetic was given. She was prepped and draped in dorsal lithotomy position. The patient was morbidly obese. The rigid cystoscope was inserted in urethra without difficulty, and the bladder was visualized. No tumors or stones noted to bladder. Attention was turned to the left ureteral orifice. It was intubated with ureteral catheter. Contrast was injected for retrograde pyelogram. There was a large, radio dense stone in the left renal pelvis approximately 2 cm in size and then there were 2 other stones below that in the [id number] pole that were approximately each 7 mm in size. A guidewire was advanced into the renal pelvis. Over the guidewire, a dual-lumen catheter was advanced, and a 2nd guidewire was used as a working guidewire. Over the 2nd guidewire, a flexible ureteroscope was advanced into the renal pelvis, and 1 guidewire was kept as a safety wire. The entire left collecting system was inspected. The 2-cm large left renal pelvis stone was visualized as well as the 2 smaller 7-mm stones. Using the 365-micron laser fiber, attention was 1st turned to the large stone, this was pulverized to fine dust in 1- to 2-mm fragments using the 365 laser fiber until the entire stone burden was fragmented. After this was treated, then the 2 other smaller stones, 7 mm size in the mid and lower poles, were then treated until they were fragmented as well. No other large stone burden was noted. Ureteroscope was then removed, and an 8-Wallisian 24-cm double pigtail stent was then advanced in a monorail fashion. Fluoroscopy confirmed the stent to be in good position. Patient was awoken from anesthesia and transferred to recovery in stable condition. There were no complications. Estimated blood loss was minimal. FEDERICO RICHARDS M.D. [id number]
[2019-05-01] MEDS: FAMOTIDINE 20 MG TABLET PO SCH (14:22)
[2019-05-01] MEDS: GABAPENTIN 300 MG CAPSULE (FP) PO SCH ×2 (14:22→21:11)
[2019-05-01] MEDS: CEFTRIAXONE 1 GM in DEXTROSE 5%-WATER - 50 ML IVPB SCH (14:23)
[2019-05-01] MEDS: ENOXAPARIN NA (PORCINE) 40 MG/0.4 ML DISP.SYRIN SQ SCH (14:48)
[2019-05-01] MEDS: ALLOPURINOL 300 MG TABLET (FP) PO SCH (14:48)
[2019-05-01] MEDS: ACETAMINOPHEN WITH CODEINE 300MG/30MG TABLET PO PRN ×2 (15:33→21:11)
[2019-05-01] MEDS: LACTATED RINGERS SOLUTION 1,000 ML IV SCH (15:34)
[2019-05-01] MEDS: ZOLPIDEM TARTRATE 5 MG TABLET PO PRN (23:00)
[2019-05-02] MEDS: ACETAMINOPHEN WITH CODEINE 300MG/30MG TABLET PO PRN ×4 (03:00→22:01)
[2019-05-02] MEDS: metFORMIN HCL 500 MG TABLET (FP) PO SCH ×2 (06:38→16:08)
[2019-05-02] MEDS: sitaGLIPtin PHOSPHATE 50 MG TABLET PO SCH (06:38)
[2019-05-02] MEDS ORDERED: cefTRIAXone SODIUM 1 GM VIAL ONE (09:11)
[2019-05-02] MEDS ORDERED: DEXTROSE 5%-WATER - 50 ML IVPB ONE (09:11)
[2019-05-02] MEDS: ALLOPURINOL 300 MG TABLET (FP) PO SCH (09:29)
[2019-05-02] MEDS: FAMOTIDINE 20 MG TABLET PO SCH (09:30)
[2019-05-02] MEDS: GABAPENTIN 300 MG CAPSULE (FP) PO SCH ×2 (09:30→22:01)
[2019-05-02] MEDS: ENOXAPARIN NA (PORCINE) 40 MG/0.4 ML DISP.SYRIN SQ SCH (09:30)
[2019-05-02] MEDS: amLODIPine BESYLATE 10 MG TABLET (FP) PO SCH (09:30)
[2019-05-02] MEDS: CEFTRIAXONE 1 GM in DEXTROSE 5%-WATER - 50 ML IVPB SCH (09:31)
--- NOTE | 2019-05-02 13:20 | PN ---
Progress Note (short form) - Note Progress Note: 68F POD1 s/p cysto laser lithotripsy under spinal anesthetic. Pt states that she has moderate amount of pain that improves with medication. No anesthetic complications. Continue current care.
--- NOTE | 2019-05-02 15:34 | PN ---
Progress Note (short form) - Note Progress Note: CBC, BMP 05/01/19 08:42 05/01/19 08:42 Vital Signs Period Temp Pulse Resp BP Sys/Loredo Pulse Ox Last 24 Hr 97.1 F-98.7 F 75-85 16-20 111-151/59-81 96-96 c/o lot of left sided pain and dysuria s1s2 rrr lungs cta abd soft, mild suprapubic tenderness present no edema aaox3 infected renal stones, s/p lithotripsy 1.9.20 obesity HTN NIDDM continue iv abx for 2 days postop pain control encourage po fluids dc home on keAteeda Problem List - Problems (1) Renal calculi Code(s): N20.0 - CALCULUS OF KIDNEY (2) Diabetes mellitus Code(s): E11.9 - TYPE 2 DIABETES MELLITUS WITHOUT COMPLICATIONS Qualifiers: Diabetes mellitus type: type 2 Diabetes mellitus long filler cigar roller machine insulin use: without nursing home use Diabetes mellitus complication status: with other specified complication Qualified Code(s): E11.69 - Type 2 diabetes mellitus with other specified complication (3) Hypertension Code(s): I10 - ESSENTIAL (PRIMARY) HYPERTENSION Qualifiers: Hypertension type: essential hypertension Qualified Code(s): I10 - Essential (primary) hypertension (4) Obesity Code(s): E66.9 - OBESITY, UNSPECIFIED Qualifiers: Obesity type: due to excess calories Body mass index: BMI 50.0-59.9 (5) UTI (urinary tract infection) Code(s): N39.0 - URINARY TRACT INFECTION, SITE NOT SPECIFIED Qualifiers: Urinary tract infection type: site unspecified Hematuria presence: with hematuria Qualified Code(s): N39.0 - Urinary tract infection, site not specified; R31.9 - Hematuria, unspecified
[2019-05-02] MEDS: ALPRAZolam 0.25 MG TABLET PO PRN (16:05)
[2019-05-02] MEDS: LACTATED RINGERS SOLUTION 1,000 ML IV SCH (22:03)
[2019-05-02] MEDS: ZOLPIDEM TARTRATE 5 MG TABLET PO PRN (23:15)
[2019-05-03] MEDS: ACETAMINOPHEN WITH CODEINE 300MG/30MG TABLET PO PRN ×3 (04:17→16:42)
[2019-05-03] MEDS: sitaGLIPtin PHOSPHATE 50 MG TABLET PO SCH (06:55)
[2019-05-03] MEDS: metFORMIN HCL 500 MG TABLET (FP) PO SCH (06:55)
[2019-05-03 08:20] LABS: BASO % 0.5 % (0-2.0); EOS % 0.8 % (0-4.5); HEMATOCRIT 34.3 % (32.4-45.2); HEMOGLOBIN 10.9 GM/dL (10.7-15.3); MCH 25.7 pg (25.7-33.7); MCHC 31.9 g/dl (32.0-36.0); MEAN CELL VOLUME 80.7 fl (80-96); MEAN PLT VOLUME 9.6 fl (7.5-11.1); MONO % 7.5 % (3.8-10.2); NEUT % 77.2 % (42.8-82.8); PLATELET COUNT 273 K/MM3 (134-434); RBC 4.25 M/mm3 (3.60-5.2); RDW 17.4 % (11.6-15.6); WHITE BLOOD COUNT 9.4 K/mm3 (4.0-10.0)
[2019-05-03 08:43] LABS: ALBUMIN 3.3 g/dl (3.4-5.0); BILIRUBIN,TOTAL 0.5 mg/dL (0.2-1); BLOOD UREA NITROGEN 22.3 mg/dL (7-18); CREATININE 1.2 mg/dL (0.55-1.3); POTASSIUM 4.1 mmol/L (3.5-5.1); TOT PROT 6.1 g/dl (6.4-8.2)
[2019-05-03] MEDS ORDERED: cefTRIAXone SODIUM 1 GM VIAL ONE (09:38)
[2019-05-03] MEDS ORDERED: DEXTROSE 5%-WATER - 50 ML IVPB ONE (09:38)
[2019-05-03] MEDS: CEFTRIAXONE 1 GM in DEXTROSE 5%-WATER - 50 ML IVPB SCH (09:41)
[2019-05-03] MEDS: amLODIPine BESYLATE 10 MG TABLET (FP) PO SCH (09:42)
[2019-05-03] MEDS: GABAPENTIN 300 MG CAPSULE (FP) PO SCH ×2 (09:42→21:47)
[2019-05-03] MEDS: ALLOPURINOL 300 MG TABLET (FP) PO SCH (09:43)
--- NOTE | 2019-05-03 09:43 | PN ---
Progress Note, Physician Chief Complaint: Left Flank pain and hematuria - Current Medication List Current Medications: Active Medications Acetaminophen (Tylenol -) 650 mg PO Q4H PRN PRN Reason: PAIN LEVEL 1 - 3 Acetaminophen/Codeine Phosphate (Tylenol # 3 -) 2 tab PO Q6H PRN PRN Reason: PAIN LEVEL 7 - 10 Last Admin: 05/03/19 04:17 Dose: 2 tab Allopurinol (Zyloprim -) 300 mg PO DAILY [facility] Last Admin: 05/02/19 09:29 Dose: 300 mg Alprazolam (Xanax -) 0.5 mg PO BID PRN PRN Reason: ANXIETY Last Admin: 05/02/19 16:05 Dose: 0.5 mg Amlodipine Besylate (Norvasc -) 10 mg PO DAILY [facility] Last Admin: 05/02/19 09:30 Dose: 10 mg Enoxaparin Sodium (Lovenox -) 40 mg SQ DAILY [facility] Last Admin: 05/02/19 09:30 Dose: Not Given Famotidine (Pepcid -) 20 mg PO DAILY [facility] Last Admin: 05/02/19 09:30 Dose: 20 mg Fentanyl (Sublimaze Injection -) 25 mcg IVPUSH [id number] PRN PRN Reason: PAIN-PACU ORDER X 4 DOSES ONLY Gabapentin (Neurontin -) 300 mg PO BID [facility] Last Admin: 05/02/19 22:01 Dose: 300 mg Lactated Ringer's (Lactated Ringers Solution) 1,000 mls @ 75 mls/hr IV ASDIR [facility] Last Admin: 05/02/19 22:03 Dose: Not Given Ceftriaxone Sodium 1 gm/ (Dextrose) 50 mls @ 100 mls/hr IVPB DAILY [facility]; Protocol Last Admin: 05/02/19 09:31 Dose: 100 mls/hr Metformin HCl (Glucophage -) 1,000 mg PO BIDAC [facility] Last Admin: 05/03/19 06:55 Dose: 1,000 mg Ondansetron HCl (Zofran Injection) 4 mg IVPUSH Q6H PRN PRN Reason: NAUSEA AND/OR VOMITING Sitagliptin Phosphate (Januvia -) 50 mg PO ACBK [facility] Last Admin: 05/03/19 06:55 Dose: 50 mg Zolpidem Tartrate (Ambien -) 5 mg PO HS PRN PRN Reason: INSOMNIA Last Admin: 05/02/19 23:15 Dose: 5 mg - Objective Vital Signs: Vital Signs Temperature 97.6 F 05/03/19 05:22 Pulse Rate 84 05/03/19 05:22 Respiratory Rate 20 05/03/19 05:22 Blood Pressure 137/80 05/03/19 05:22 O2 Sat by Pulse Oximetry (%) 95 05/02/19 21:00 Elderly F not in distress HEENT: Mm moist, mild anemia NECK: No jVd No Bruit CHEST: CTA B/L CVS: S1S2 R ABD: Obese non tender EXT: Trace edema, Pulses SUPERINTENDENT CIRCUS: AOX3 non focal Labs: CBC, BMP 05/03/19 07:00 05/03/19 07:00 INR, PTT INR 0.91 (0.83-1.09) 04/28/19 11:50 Problem List - Problems (1) Left renal stone Assessment/Plan: s/P Lithotripsy c/o hematuria H/h stable Problems reviewed: Yes Code(s): N20.0 - CALCULUS OF KIDNEY (2) VINH (acute kidney injury) Assessment/Plan: Rising BUN Creat will cont IV hydration F/I BMP Problems reviewed: Yes Code(s): N17.9 - ACUTE KIDNEY FAILURE, UNSPECIFIED (3) T2DM (type 2 diabetes mellitus) Assessment/Plan: Hold metformin for rising creat add correction dose insulin cont Sitagliptin Problems reviewed: Yes Code(s): E11.9 - TYPE 2 DIABETES MELLITUS WITHOUT COMPLICATIONS (4) Hypertension Assessment/Plan: Well controlled Problems reviewed: Yes Code(s): I10 - ESSENTIAL (PRIMARY) HYPERTENSION Qualifiers: Hypertension type: essential hypertension Qualified Code(s): I10 - Essential (primary) hypertension (5) Obesity Assessment/Plan: Out patient consult and F/U Problems reviewed: Yes Code(s): E66.9 - OBESITY, UNSPECIFIED Qualifiers: Obesity type: due to excess calories Body mass index: BMI 50.0-59.9 (6) UTI (urinary tract infection) Assessment/Plan: On Ceftrixone F/U Id for chnage to oral. Problems reviewed: Yes Code(s): N39.0 - URINARY TRACT INFECTION, SITE NOT SPECIFIED Qualifiers: Urinary tract infection type: site unspecified Hematuria presence: with hematuria Qualified Code(s): N39.0 - Urinary tract infection, site not specified; R31.9 - Hematuria, unspecified
[2019-05-03] MEDS: ENOXAPARIN NA (PORCINE) 40 MG/0.4 ML DISP.SYRIN SQ SCH (09:44)
[2019-05-03] MEDS: FAMOTIDINE 20 MG TABLET PO SCH (09:44)
--- NOTE | 2019-05-03 10:41 | PN ---
Progress Note, Physician History of Present Illness: patient c/o of sever pain on the left side radiating to the back post stent placement hematuria - Current Medication List Current Medications: Active Medications Acetaminophen (Tylenol -) 650 mg PO Q4H PRN PRN Reason: PAIN LEVEL 1 - 3 Acetaminophen/Codeine Phosphate (Tylenol # 3 -) 2 tab PO Q6H PRN PRN Reason: PAIN LEVEL 7 - 10 Last Admin: 05/03/19 09:43 Dose: 2 tab Allopurinol (Zyloprim -) 300 mg PO DAILY [facility] Last Admin: 05/03/19 09:43 Dose: 300 mg Alprazolam (Xanax -) 0.5 mg PO BID PRN PRN Reason: ANXIETY Last Admin: 05/02/19 16:05 Dose: 0.5 mg Amlodipine Besylate (Norvasc -) 10 mg PO DAILY [facility] Last Admin: 05/03/19 09:42 Dose: 10 mg Enoxaparin Sodium (Lovenox -) 40 mg SQ DAILY [facility] Last Admin: 05/03/19 09:44 Dose: Not Given Famotidine (Pepcid -) 20 mg PO DAILY [facility] Last Admin: 05/03/19 09:44 Dose: 20 mg Fentanyl (Sublimaze Injection -) 25 mcg IVPUSH [id number] PRN PRN Reason: PAIN-PACU ORDER X 4 DOSES ONLY Gabapentin (Neurontin -) 300 mg PO BID [facility] Last Admin: 05/03/19 09:42 Dose: 300 mg Lactated Ringer's (Lactated Ringers Solution) 1,000 mls @ 75 mls/hr IV ASDIR [facility] Last Admin: 05/02/19 22:03 Dose: Not Given Ceftriaxone Sodium 1 gm/ (Dextrose) 50 mls @ 100 mls/hr IVPB DAILY [facility]; Protocol Last Admin: 05/03/19 09:41 Dose: 100 mls/hr Metformin HCl (Glucophage -) 1,000 mg PO BIDAC [facility] Last Admin: 05/03/19 06:55 Dose: 1,000 mg Ondansetron HCl (Zofran Injection) 4 mg IVPUSH Q6H PRN PRN Reason: NAUSEA AND/OR VOMITING Sitagliptin Phosphate (Januvia -) 50 mg PO ACBK [facility] Last Admin: 05/03/19 06:55 Dose: 50 mg Zolpidem Tartrate (Ambien -) 5 mg PO HS PRN PRN Reason: INSOMNIA Last Admin: 05/02/19 23:15 Dose: 5 mg - Objective Vital Signs: Vital Signs Temperature 97.6 F 05/03/19 05:22 Pulse Rate 84 05/03/19 05:22 Respiratory Rate 20 05/03/19 05:22 Blood Pressure 137/80 05/03/19 05:22 O2 Sat by Pulse Oximetry (%) 95 05/02/19 21:00 Constitutional: Yes: Calm, Mild Distress Cardiovascular: Yes: S1, S2 Respiratory: Yes: Regular, CTA Bilaterally Gastrointestinal: Yes: Normal Bowel Sounds, Soft Musculoskeletal: Yes: WNL Extremities: Yes: WNL Neurological: Yes: Alert, Oriented Psychiatric: Yes: Alert, Oriented Labs: CBC, BMP 05/03/19 07:00 05/03/19 07:00 INR, PTT INR 0.91 (0.83-1.09) 04/28/19 11:50 Assessment/Plan Problem List - Problems (1) Renal calculi Code(s): N20.0 - CALCULUS OF KIDNEY (2) Diabetes mellitus Code(s): E11.9 - TYPE 2 DIABETES MELLITUS WITHOUT COMPLICATIONS Qualifiers: Diabetes mellitus type: type 2 Diabetes mellitus intermodal customer service insulin use: without intermodal customer service use Diabetes mellitus complication status: with other specified complication Qualified Code(s): E11.69 - Type 2 diabetes mellitus with other specified complication (3) Hypertension Code(s): I10 - ESSENTIAL (PRIMARY) HYPERTENSION Qualifiers: Hypertension type: essential hypertension Qualified Code(s): I10 - Essential (primary) hypertension (4) Obesity Code(s): E66.9 - OBESITY, UNSPECIFIED Qualifiers: Obesity type: due to excess calories Body mass index: BMI 50.0-59.9 (5) UTI (urinary tract infection) Code(s): N39.0 - URINARY TRACT INFECTION, SITE NOT SPECIFIED Qualifiers: Urinary tract infection type: site unspecified Hematuria presence: with hematuria Qualified Code(s): N39.0 - Urinary tract infection, site not specified; R31.9 - Hematuria, unspecified plan iv abx monitor hematuria and pain k[facility] urology to see the patient
[2019-05-03] MEDS: LACTATED RINGERS SOLUTION 1,000 ML IV SCH (12:18)
[2019-05-03] MEDS: POLYETHYLENE GLYCOL 3350 119 GM BTL PO SCH ×2 (15:47→21:47)
[2019-05-03] MEDS: DOCUSATE SODIUM 100 MG CAPSULE (FP) PO PRN (15:47)
[2019-05-03] MEDS: INSULIN SLIDING SCALE (NOVOLOG) 1 VIAL SQ SCH (17:10)
[2019-05-03] MEDS: ALPRAZolam 0.25 MG TABLET PO PRN (21:59)
[2019-05-03] MEDS: ZOLPIDEM TARTRATE 5 MG TABLET PO PRN (23:05)
[2019-05-04] MEDS: ACETAMINOPHEN WITH CODEINE 300MG/30MG TABLET PO PRN ×2 (06:13→14:17)
[2019-05-04] MEDS: sitaGLIPtin PHOSPHATE 50 MG TABLET PO SCH (06:13)
[2019-05-04] MEDS: INSULIN SLIDING SCALE (NOVOLOG) 1 VIAL SQ SCH ×3 (06:14→16:56)
[2019-05-04] MEDS: DOCUSATE SODIUM 100 MG CAPSULE (FP) PO PRN ×2 (06:14→21:19)
[2019-05-04 07:34] LABS: BLOOD UREA NITROGEN 25.3 mg/dL (7-18); CALCIUM 9.4 mg/dL (8.5-10.1); CREATININE 1.5 mg/dL (0.55-1.3); POTASSIUM 3.9 mmol/L (3.5-5.1)
[2019-05-04 07:52] LABS: BASO % 0.3 % (0-2.0); EOS % 0.8 % (0-4.5); HEMATOCRIT 34.1 % (32.4-45.2); LYMPH % 14.1 % (8-40); MCH 25.8 pg (25.7-33.7); MCHC 32.2 g/dl (32.0-36.0); MEAN CELL VOLUME 80.2 fl (80-96); MEAN PLT VOLUME 9.7 fl (7.5-11.1); MONO % 9.9 % (3.8-10.2); NEUT % 74.9 % (42.8-82.8); PLATELET COUNT 287 K/MM3 (134-434); RBC 4.25 M/mm3 (3.60-5.2); RDW 17.5 % (11.6-15.6); WHITE BLOOD COUNT 9.8 K/mm3 (4.0-10.0)
[2019-05-04] MEDS ORDERED: cefTRIAXone SODIUM 1 GM VIAL ONE (09:18)
[2019-05-04] MEDS ORDERED: DEXTROSE 5%-WATER - 50 ML IVPB ONE (09:19)
[2019-05-04] MEDS: GABAPENTIN 300 MG CAPSULE (FP) PO SCH ×2 (09:29→21:19)
[2019-05-04] MEDS: POLYETHYLENE GLYCOL 3350 119 GM BTL PO SCH ×2 (09:29→21:18)
[2019-05-04] MEDS: ENOXAPARIN NA (PORCINE) 40 MG/0.4 ML DISP.SYRIN SQ SCH (09:29)
[2019-05-04] MEDS: amLODIPine BESYLATE 10 MG TABLET (FP) PO SCH (09:29)
[2019-05-04] MEDS: ALLOPURINOL 300 MG TABLET (FP) PO SCH (09:30)
[2019-05-04] MEDS: FAMOTIDINE 20 MG TABLET PO SCH (09:30)
[2019-05-04] MEDS: CEFTRIAXONE 1 GM in DEXTROSE 5%-WATER - 50 ML IVPB SCH (09:31)
--- NOTE | 2019-05-04 13:11 | PN ---
Progress Note, Physician History of Present Illness: stable no new issues still hematuria abd pain - Current Medication List Current Medications: Active Medications Acetaminophen (Tylenol -) 650 mg PO Q4H PRN PRN Reason: PAIN LEVEL 1 - 3 Acetaminophen/Codeine Phosphate (Tylenol # 3 -) 2 tab PO Q6H PRN PRN Reason: PAIN LEVEL 7 - 10 Last Admin: 05/04/19 06:13 Dose: 2 tab Allopurinol (Zyloprim -) 300 mg PO DAILY [facility] Last Admin: 05/04/19 09:30 Dose: 300 mg Alprazolam (Xanax -) 0.5 mg PO BID PRN PRN Reason: ANXIETY Last Admin: 05/03/19 21:59 Dose: 0.5 mg Amlodipine Besylate (Norvasc -) 10 mg PO DAILY [facility] Last Admin: 05/04/19 09:29 Dose: 10 mg Docusate Sodium (Colace -) 100 mg PO BID PRN PRN Reason: CONSTIPATION Last Admin: 05/04/19 06:14 Dose: 100 mg Enoxaparin Sodium (Lovenox -) 40 mg SQ DAILY [facility] Last Admin: 05/04/19 09:29 Dose: Not Given Famotidine (Pepcid -) 20 mg PO DAILY [facility] Last Admin: 05/04/19 09:30 Dose: 20 mg Fentanyl (Sublimaze Injection -) 25 mcg IVPUSH [id number] PRN PRN Reason: PAIN-PACU ORDER X 4 DOSES ONLY Gabapentin (Neurontin -) 300 mg PO BID [facility] Last Admin: 05/04/19 09:29 Dose: 300 mg Lactated Ringer's (Lactated Ringers Solution) 1,000 mls @ 75 mls/hr IV ASDIR [facility] Last Admin: 05/03/19 12:18 Dose: Not Given Ceftriaxone Sodium 1 gm/ (Dextrose) 50 mls @ 100 mls/hr IVPB DAILY [facility]; Protocol Last Admin: 05/04/19 09:31 Dose: 100 mls/hr Insulin Aspart (Novolog Vial Sliding Scale -) 1 vial SQ TIDAC [facility]; Protocol Last Admin: 05/04/19 11:23 Dose: Not Given Ondansetron HCl (Zofran Injection) 4 mg IVPUSH Q6H PRN PRN Reason: NAUSEA AND/OR VOMITING Polyethylene Glycol (Miralax (For Daily Use) -) 17 gm PO BID [facility] Last Admin: 05/04/19 09:29 Dose: 17 gm Sitagliptin Phosphate (Januvia -) 50 mg PO ACBK [facility] Last Admin: 05/04/19 06:13 Dose: 50 mg Zolpidem Tartrate (Ambien -) 5 mg PO HS PRN PRN Reason: INSOMNIA Last Admin: 05/03/19 23:05 Dose: 5 mg - Objective Vital Signs: Vital Signs Temperature 99.4 F 05/04/19 05:13 Pulse Rate 82 05/04/19 10:00 Respiratory Rate 05/04/19 10:00 Blood Pressure 135/68 05/04/19 10:00 O2 Sat by Pulse Oximetry (%) 95 05/02/19 21:00 Constitutional: Yes: No Distress, Calm Cardiovascular: Yes: S1, S2 Respiratory: Yes: Regular, CTA Bilaterally Gastrointestinal: Yes: Normal Bowel Sounds, Soft Musculoskeletal: Yes: WNL Extremities: Yes: WNL Neurological: Yes: Alert, Oriented Psychiatric: Yes: Alert, Oriented Labs: CBC, BMP 05/04/19 06:17 05/04/19 06:17 INR, PTT INR 0.91 (0.83-1.09) 04/28/19 11:50 Assessment/Plan Problem List - Problems (1) Renal calculi Code(s): N20.0 - CALCULUS OF KIDNEY (2) Diabetes mellitus Code(s): E11.9 - TYPE 2 DIABETES MELLITUS WITHOUT COMPLICATIONS Qualifiers: Diabetes mellitus type: type 2 Diabetes mellitus senior living insulin use: without watermelon inspector use Diabetes mellitus complication status: with other specified complication Qualified Code(s): E11.69 - Type 2 diabetes mellitus with other specified complication (3) Hypertension Code(s): I10 - ESSENTIAL (PRIMARY) HYPERTENSION Qualifiers: Hypertension type: essential hypertension Qualified Code(s): I10 - Essential (primary) hypertension (4) Obesity Code(s): E66.9 - OBESITY, UNSPECIFIED Qualifiers: Obesity type: due to excess calories Body mass index: BMI 50.0-59.9 (5) UTI (urinary tract infection) Code(s): N39.0 - URINARY TRACT INFECTION, SITE NOT SPECIFIED Qualifiers: Urinary tract infection type: site unspecified Hematuria presence: with hematuria Qualified Code(s): N39.0 - Urinary tract infection, site not specified; R31.9 - Hematuria, unspecified plan continue current mgmt monitor hematuria
[2019-05-04] MEDS: LACTATED RINGERS SOLUTION 1,000 ML IV SCH (14:19)
--- NOTE | 2019-05-04 14:31 | PN ---
Progress Note, Physician Chief Complaint: Left Flank pain and hematuria - Current Medication List Current Medications: Active Medications Acetaminophen (Tylenol -) 650 mg PO Q4H PRN PRN Reason: PAIN LEVEL 1 - 3 Acetaminophen/Codeine Phosphate (Tylenol # 3 -) 2 tab PO Q6H PRN PRN Reason: PAIN LEVEL 7 - 10 Last Admin: 05/04/19 14:17 Dose: 2 tab Allopurinol (Zyloprim -) 300 mg PO DAILY [facility] Last Admin: 05/04/19 09:30 Dose: 300 mg Amlodipine Besylate (Norvasc -) 10 mg PO DAILY [facility] Last Admin: 05/04/19 09:29 Dose: 10 mg Docusate Sodium (Colace -) 100 mg PO BID PRN PRN Reason: CONSTIPATION Last Admin: 05/04/19 06:14 Dose: 100 mg Enoxaparin Sodium (Lovenox -) 40 mg SQ DAILY [facility] Last Admin: 05/04/19 09:29 Dose: Not Given Famotidine (Pepcid -) 20 mg PO DAILY [facility] Last Admin: 05/04/19 09:30 Dose: 20 mg Fentanyl (Sublimaze Injection -) 25 mcg IVPUSH [id number] PRN PRN Reason: PAIN-PACU ORDER X 4 DOSES ONLY Gabapentin (Neurontin -) 300 mg PO BID [facility] Last Admin: 05/04/19 09:29 Dose: 300 mg Lactated Ringer's (Lactated Ringers Solution) 1,000 mls @ 75 mls/hr IV ASDIR [facility] Last Admin: 05/04/19 14:19 Dose: Not Given Ceftriaxone Sodium 1 gm/ (Dextrose) 50 mls @ 100 mls/hr IVPB DAILY [facility]; Protocol Last Admin: 05/04/19 09:31 Dose: 100 mls/hr Insulin Aspart (Novolog Vial Sliding Scale -) 1 vial SQ TIDAC [facility]; Protocol Last Admin: 05/04/19 11:23 Dose: Not Given Ondansetron HCl (Zofran Injection) 4 mg IVPUSH Q6H PRN PRN Reason: NAUSEA AND/OR VOMITING Polyethylene Glycol (Miralax (For Daily Use) -) 17 gm PO BID [facility] Last Admin: 05/04/19 09:29 Dose: 17 gm Sitagliptin Phosphate (Januvia -) 50 mg PO ACBK [facility] Last Admin: 05/04/19 06:13 Dose: 50 mg - Objective Vital Signs: Vital Signs Temperature 99.4 F 05/04/19 05:13 Pulse Rate 82 05/04/19 10:00 Respiratory Rate 05/04/19 10:00 Blood Pressure 135/68 05/04/19 10:00 O2 Sat by Pulse Oximetry (%) 95 05/02/19 21:00 Elderly F not in distress HEENT: Mm moist, mild anemia NECK: No jVd No Bruit CHEST: CTA B/L CVS: S1S2 R ABD: Obese non tender EXT: Trace edema, Pulses FATBACK TRIMMER: AOX3 non focal Labs: CBC, BMP 05/04/19 06:17 05/04/19 06:17 INR, PTT INR 0.91 (0.83-1.09) 04/28/19 11:50 Problem List - Problems (1) Left renal stone Assessment/Plan: s/P Lithotripsy c/o hematuria H/h stable Code(s): N20.0 - CALCULUS OF KIDNEY (2) VINH (acute kidney injury) Assessment/Plan: Rising BUN Creat will cont IV hydration F/I BMP, Renal ultrasound will discuss wth after ultrasound Code(s): N17.9 - ACUTE KIDNEY FAILURE, UNSPECIFIED (3) T2DM (type 2 diabetes mellitus) Assessment/Plan: Hold metformin for rising creat add correction dose insulin cont Sitagliptin Code(s): E11.9 - TYPE 2 DIABETES MELLITUS WITHOUT COMPLICATIONS (4) Hypertension Assessment/Plan: Well controlled Code(s): I10 - ESSENTIAL (PRIMARY) HYPERTENSION Qualifiers: Hypertension type: essential hypertension Qualified Code(s): I10 - Essential (primary) hypertension (5) Obesity Assessment/Plan: Out patient consult and F/U Code(s): E66.9 - OBESITY, UNSPECIFIED Qualifiers: Obesity type: due to excess calories Body mass index: BMI 50.0-59.9 (6) UTI (urinary tract infection) Assessment/Plan: On Ceftrixone F/U Id for chnage to oral. Code(s): N39.0 - URINARY TRACT INFECTION, SITE NOT SPECIFIED Qualifiers: Urinary tract infection type: site unspecified Hematuria presence: with hematuria Qualified Code(s): N39.0 - Urinary tract infection, site not specified; R31.9 - Hematuria, unspecified
[2019-05-04] MEDS: SODIUM CHLORIDE 1,000 ML IV SCH (16:53)
[2019-05-04] MEDS ORDERED: ZOLPIDEM TARTRATE 5 MG TABLET PO ONE (23:29)
[2019-05-05] MEDS: ACETAMINOPHEN WITH CODEINE 300MG/30MG TABLET PO PRN ×3 (01:16→18:44)
[2019-05-05] MEDS: INSULIN SLIDING SCALE (NOVOLOG) 1 VIAL SQ SCH ×3 (06:43→17:22)
[2019-05-05] MEDS: sitaGLIPtin PHOSPHATE 50 MG TABLET PO SCH (06:43)
[2019-05-05 08:22] LABS: BASO % 0.6 % (0-2.0); EOS % 1.5 % (0-4.5); HEMATOCRIT 36.2 % (32.4-45.2); HEMOGLOBIN 11.8 GM/dL (10.7-15.3); LYMPH % 15.8 % (8-40); MCH 26.3 pg (25.7-33.7); MCHC 32.7 g/dl (32.0-36.0); MEAN CELL VOLUME 80.3 fl (80-96); MEAN PLT VOLUME 9.4 fl (7.5-11.1); MONO % 9.5 % (3.8-10.2); NEUT % 72.6 % (42.8-82.8); PLATELET COUNT 327 K/MM3 (134-434); RBC 4.51 M/mm3 (3.60-5.2); RDW 17.3 % (11.6-15.6); WHITE BLOOD COUNT 10.2 K/mm3 (4.0-10.0)
--- NOTE | 2019-05-05 08:37 | PN ---
Progress Note (short form) - Note Progress Note: CBC, BMP 05/05/19 07:40 Vital Signs Period Temp Pulse Resp BP Sys/L[place]o Pulse Ox Last 24 Hr 97.6 F-99.4 F 81-88 17-20 120-135/50-72 left sided pain and dysuria is better c/o constipation, no BM for 4 days s1s2 rrr lungs cta abd soft, mild suprapubic tenderness present no edema aaox3 infected renal stones, s/p lithotripsy 1.9.20 obesity HTN NIDDM continue iv abx while inpt creat bumped yesterday, check renbal US r/o hydro with large stone burden if us and renal fnct ok today dc home on keflex and oral pain med encourage po fluids enema and stool softener Problem List - Problems (1) Renal calculi Code(s): N20.0 - CALCULUS OF KIDNEY (2) Diabetes mellitus Code(s): E11.9 - TYPE 2 DIABETES MELLITUS WITHOUT COMPLICATIONS Qualifiers: Diabetes mellitus type: type 2 Diabetes mellitus jail insulin use: without termite technician use Diabetes mellitus complication status: with other specified complication Qualified Code(s): E11.69 - Type 2 diabetes mellitus with other specified complication (3) Hypertension Code(s): I10 - ESSENTIAL (PRIMARY) HYPERTENSION Qualifiers: Hypertension type: essential hypertension Qualified Code(s): I10 - Essential (primary) hypertension (4) Obesity Code(s): E66.9 - OBESITY, UNSPECIFIED Qualifiers: Obesity type: due to excess calories Body mass index: BMI 50.0-59.9 (5) UTI (urinary tract infection) Code(s): N39.0 - URINARY TRACT INFECTION, SITE NOT SPECIFIED Qualifiers: Urinary tract infection type: site unspecified Hematuria presence: with hematuria Qualified Code(s): N39.0 - Urinary tract infection, site not specified; R31.9 - Hematuria, unspecified
[2019-05-05] MEDS ORDERED: MINERAL OIL ENEMA 133 ML ENEMA PR ONE (08:38)
[2019-05-05 08:48] LABS: BLOOD UREA NITROGEN 24.6 mg/dL (7-18); CALCIUM 9.5 mg/dL (8.5-10.1); CREATININE 1.4 mg/dL (0.55-1.3); POTASSIUM 4.1 mmol/L (3.5-5.1)
[2019-05-05] MEDS ORDERED: NYSTATIN 100,000 UNIT/GM TOPICAL CREAM 15 GM TUBE TP SCH (10:00)
[2019-05-05] MEDS ORDERED: cefTRIAXone SODIUM 1 GM VIAL ONE (10:06)
[2019-05-05] MEDS ORDERED: DEXTROSE 5%-WATER - 50 ML IVPB ONE (10:07)
[2019-05-05] MEDS: amLODIPine BESYLATE 10 MG TABLET (FP) PO SCH (10:08)
[2019-05-05] MEDS: FAMOTIDINE 20 MG TABLET PO SCH (10:08)
[2019-05-05] MEDS: DOCUSATE SODIUM 100 MG CAPSULE (FP) PO SCH ×3 (10:08→23:08)
[2019-05-05] MEDS: ALLOPURINOL 300 MG TABLET (FP) PO SCH (10:09)
[2019-05-05] MEDS: GABAPENTIN 300 MG CAPSULE (FP) PO SCH ×2 (10:09→23:08)
[2019-05-05] MEDS: ENOXAPARIN NA (PORCINE) 40 MG/0.4 ML DISP.SYRIN SQ SCH (10:11)
[2019-05-05] MEDS: CEFTRIAXONE 1 GM in DEXTROSE 5%-WATER - 50 ML IVPB SCH (10:49)
[2019-05-05] MEDS: POLYETHYLENE GLYCOL 3350 119 GM BTL PO SCH ×2 (10:53→23:08)
[2019-05-05] MEDS: NYSTATIN 100,000 UNIT/GM TOPICAL CREAM 15 GM TUBE TP SCH ×2 (10:54→23:08)
--- NOTE | 2019-05-05 13:45 | PN ---
Progress Note, Physician History of Present Illness: stable no new issues - Current Medication List Current Medications: Active Medications Acetaminophen (Tylenol -) 650 mg PO Q4H PRN PRN Reason: PAIN LEVEL 1 - 3 Acetaminophen/Codeine Phosphate (Tylenol # 3 -) 2 tab PO Q6H PRN PRN Reason: PAIN LEVEL 7 - 10 Last Admin: 05/05/19 10:13 Dose: 2 tab Allopurinol (Zyloprim -) 300 mg PO DAILY [facility] Last Admin: 05/05/19 10:09 Dose: 300 mg Amlodipine Besylate (Norvasc -) 10 mg PO DAILY [facility] Last Admin: 05/05/19 10:08 Dose: 10 mg Docusate Sodium (Colace -) 100 mg PO TID [facility] Last Admin: 05/05/19 10:08 Dose: 100 mg Enoxaparin Sodium (Lovenox -) 40 mg SQ DAILY [facility] Last Admin: 05/05/19 10:11 Dose: Not Given Famotidine (Pepcid -) 20 mg PO DAILY [facility] Last Admin: 05/05/19 10:08 Dose: 20 mg Fentanyl (Sublimaze Injection -) 25 mcg IVPUSH [id number] PRN PRN Reason: PAIN-PACU ORDER X 4 DOSES ONLY Gabapentin (Neurontin -) 300 mg PO BID [facility] Last Admin: 05/05/19 10:09 Dose: 300 mg Sodium Chloride (Normal Saline -) 1,000 mls @ 100 mls/hr IV ASDIR [facility] Last Admin: 05/04/19 16:53 Dose: Not Given Insulin Aspart (Novolog Vial Sliding Scale -) 1 vial SQ TIDAC [facility]; Protocol Last Admin: 05/05/19 11:18 Dose: Not Given Nystatin (Mycostatin Cream -) 1 applic TP BID [facility] Last Admin: 05/05/19 10:54 Dose: 1 applic Ondansetron HCl (Zofran Injection) 4 mg IVPUSH Q6H PRN PRN Reason: NAUSEA AND/OR VOMITING Polyethylene Glycol (Miralax (For Daily Use) -) 17 gm PO BID [facility] Last Admin: 05/05/19 10:53 Dose: 17 gm Sitagliptin Phosphate (Januvia -) 50 mg PO ACBK [facility] Last Admin: 05/05/19 06:43 Dose: 50 mg - Objective Vital Signs: Vital Signs Temperature 97.6 F 05/05/19 06:49 Pulse Rate 82 05/05/19 06:49 Respiratory Rate 19 05/05/19 06:49 Blood Pressure 133/72 05/05/19 06:49 O2 Sat by Pulse Oximetry (%) 95 05/02/19 21:00 Constitutional: Yes: No Distress, Calm Cardiovascular: Yes: S1, S2 Respiratory: Yes: Regular, CTA Bilaterally Musculoskeletal: Yes: WNL Extremities: Yes: WNL Neurological: Yes: Alert, Oriented Psychiatric: Yes: Alert, Oriented Labs: CBC, BMP 05/05/19 07:40 05/05/19 07:40 INR, PTT INR 0.91 (0.83-1.09) 04/28/19 11:50 Assessment/Plan Problem List - Problems (1) Renal calculi Code(s): N20.0 - CALCULUS OF KIDNEY (2) Diabetes mellitus Code(s): E11.9 - TYPE 2 DIABETES MELLITUS WITHOUT COMPLICATIONS Qualifiers: Diabetes mellitus type: type 2 Diabetes mellitus intermediate frame tender insulin use: without jail use Diabetes mellitus complication status: with other specified complication Qualified Code(s): E11.69 - Type 2 diabetes mellitus with other specified complication (3) Hypertension Code(s): I10 - ESSENTIAL (PRIMARY) HYPERTENSION Qualifiers: Hypertension type: essential hypertension Qualified Code(s): I10 - Essential (primary) hypertension (4) Obesity Code(s): E66.9 - OBESITY, UNSPECIFIED Qualifiers: Obesity type: due to excess calories Body mass index: BMI 50.0-59.9 (5) UTI (urinary tract infection) Code(s): N39.0 - URINARY TRACT INFECTION, SITE NOT SPECIFIED Qualifiers: Urinary tract infection type: site unspecified Hematuria presence: with hematuria Qualified Code(s): N39.0 - Urinary tract infection, site not specified; R31.9 - Hematuria, unspecified plan continue current mgmt monitor hematuria will change to oral rest as per the team
[2019-05-05] MEDS: SODIUM CHLORIDE 1,000 ML IV SCH (17:22)
[2019-05-05] MEDS ORDERED: PT OWN MED DRAWER 7, Y5N ONE (17:24)
[2019-05-05] MEDS ORDERED: AMOX TR/POT CLAV 500MG/125MG TABLETS (FP) PO SCH (17:30)
[2019-05-05] MEDS: ACETAMINOPHEN 325 MG TABLET (FP) PO PRN (23:07)
[2019-05-05] MEDS ORDERED: ZOLPIDEM TARTRATE 5 MG TABLET PO ONE (23:32)
[2019-05-06] MEDS: ACETAMINOPHEN 325 MG TABLET (FP) PO PRN (04:38)
[2019-05-06 06:28] VITALS: BP 131/62; PULSE 75; TEMP 98
[2019-05-06] MEDS ORDERED: INSULIN (NOVOLOG) ASPART 100 UNITS/ML 10ML VIAL ONE (07:07)
[2019-05-06] MEDS: DOCUSATE SODIUM 100 MG CAPSULE (FP) PO SCH (07:08)
[2019-05-06] MEDS: sitaGLIPtin PHOSPHATE 50 MG TABLET PO SCH (07:08)
[2019-05-06] MEDS: INSULIN SLIDING SCALE (NOVOLOG) 1 VIAL SQ SCH (07:09)
== END 2019-05-06 08:20 | disposition home health service (06) | DRG 660 ==
LOC: J6S 10:03
PROVIDERS: ADMIT Internal Medicine; ATTEND Internal Medicine
PROC: 0T778DZ Dilation of Left Ureter with Intraluminal Device, Via Natural or Artificial Opening Endoscopic (ICD-10-PCS; principal; 2019-05-01 10:30)
PROC: 0TC48ZZ Extirpation of Matter from Left Kidney Pelvis, Via Natural or Artificial Opening Endoscopic (ICD-10-PCS; 2019-05-01 10:30)
PROC: BT1FZZZ Fluoroscopy of Left Kidney, Ureter and Bladder (ICD-10-PCS; 2019-05-01 10:30)
DX: N20.0 Calculus of kidney (principal); N17.9 Acute kidney failure, unspecified; Z68.43 Body mass index [BMI] 50.0-59.9, adult; N39.0 Urinary tract infection, site not specified; E66.01 Morbid (severe) obesity due to excess calories; E11.9 Type 2 diabetes mellitus without complications; I10 Essential (primary) hypertension; R31.9 Hematuria, unspecified; D64.9 Anemia, unspecified; D72.829 Elevated white blood cell count, unspecified; B96.20 Unspecified Escherichia coli [E. coli] as the cause of diseases classified elsewhere
CPT/HCPCS: 36415; 71046-TC-FY; 74018-TC-FY; 74176-TC; 76000-TC-FY; 76775-TC; 80048; 80053; 81003; 82962; 85025; 85610; 85730; 87086; 93005; 93010; 94760

== ENCOUNTER 2019-05-09 12:24 | Inpatient (IN) | payer OTHER ==
[2019-05-09 12:37] VITALS: BMI 51.3
--- NOTE | 2019-05-09 14:11 | PDOC ---
History of Present Illness - General Chief Complaint: Weakness Stated Complaint: EDEMA Time Seen by Provider: 05/09/19 13:29 History Source: Patient Exam Limitations: No Limitations - History of Present Illness Initial Comments: 05/09/19 14:10 HPI 68 YOF with obesity, HTN, NIDDM, nephrolithiasis, gallstone, samreen en y gastric bypass (2002), recurrent UTI/E. coli urosepsis and bacteremia, obsructed stones c/b infection s/p lithotripsy and stenting (last performed on 05/01/[address] Reed) discharged earlier this month for urosepsis/infected ureteral stone on augmentin, which she was taking after UTI/obstructed stone s/p stenting. one week of abx inpatient, transitioned to augmentin x since 05/05/19, has two more doses left skipped today's due to her doctor's recs due to the weakness. presenting today with +generalized weakness x 1 week, but worse beginning yesterday. +difficult walking, yesterday she noted her right upper arm was weaker and she could not lift it or get out of bed, beginning about late afternoon to "middle of the night." unable to provide an exact time but >12-24 hours ago +RLE pain and swelling, worse than left no fall or trauma. Denies fever, chills, chest pain, SOB, palpitation, dizziness, N, V, D, abdominal pain, bladder and bowel problems, paresthesias, leg swelling/pain, rash. Allergies: None Past Medical History/PSH: as above Social history: Lives with family. No tobacco, ETOH or drug use. Meds: as documented in EMR Family history: noncontributory PMD: Dr Flanagan Review of systems Constitutional: no fevers or chills. +generalized weakness HEENT: no headache or dizziness. No congestion. CVS: no cp or syncope. +leg swelling. Resp: no sob. No cough. Gastrointestinal: no abdominal pain, nausea, vomiting, diarrhea. Genitourinary: no urinary sx, hematuria. MUSCULOSKELETAL: No joint pain and swelling. No neck or back pain. +leg pain and swelling SKIN: no redness or skin changes, no discharge, no rash. No wounds. Hematologic: no easy bruising/bleeding. NEUROLOGIC: No headache, dizziness, LOC or altered mental status. No numbness or tingling. +arm weakness. Psych: no anxiety or depression Allergic/Immunologic: no allergies All other systems reviewed and negative, or as documented in HPI. Physical exam General: Well appearing, awake and alert, NAD. HEENT: NCAT, PERRL, EOMI, clear conjunctiva, anicteric, moist mucus membranes, clear oropharynx, no oral lesions.. Neck: neck supple, FROM Resp: CTAB, normal and even respirations, no respiratory distress CVS: RRR, no murmurs, 2+ peripheral pulses throughout, no peripheral edema Abdomen: soft, morbidly obese, no rebound or guarding. no CVAT Back: nontender, normal inspection and ROM MSK: no edema, THOMPSON x4, ROM intact. No clubbing or cyanosis. normal bulk and tone. Extremities: RLE tenderness, 2+ pitting edema, Right>left Neuro: alert, oriented appropriately; no focal neurologic deficits, clear speech 5/5 account support associate, prox/distal strength, SILT in all extrem. gait stable with walker. 5/5 shoulder shrug. Psych: Calm and cooperative Skin: warm and well perfused, cap refill <2 sec, normal color, no rash or skin discoloration. 05/09/19 17:21 05/09/19 17:54 05/09/19 18:23 tPA Exclusion checklist 3-4.5h - Time Elapsed Date last known well: 05/08/19 (0000) Time last known well: 00:00 Elaspsed time: 2 Day(s) and 20 Hour(s) and 59 Minutes - Thrombolytic Therapy Candidate Is patient eligible for thrombolytic therapy: No - Exclusion Criteria 3-4.5 hr SBP greater than 185 or DBP greater than 110mmHg despite tx: No Recent IC/spinal surgery,head trauma or stroke<3mos.: No Hx IC hemorrhage, IC neoplasm, AV malformation or aneurysm: No Active internal bleeding: No Blding diathesis(low plt ct, inc PTT,INR>1.7 or use of NOAC): No Symptoms suggest subarachnoid hemorrhage: No CT demonstrates multilobar infarct(>1/3 cerebral hemiphere): No Arterial puncture at noncompressible site in previous 7 days: No Blood glucose concentration less than 50mg/dL (2.7mmol/L): No - Relative Exclusion Criteria 3-4.5 hr Life expectancy <1 yr or severe co-morbid illness: No : No Patient/family refused: No Rapid improvement: Yes Stroke severity too mild: Yes Recent acute WA (w/in previous 3 months): No Seizure at onset with postictal residual neuro impairments: No Major surgery or serious trauma w/in previous 14 days: No Recent GI or hemorrhage (w/in previous 21 days): No - Add'l Relative Exclusion 3-4.5 hr Age > 80: No Hx of both diabetes AND prior ischemic stroke: No Taking an oral anticoagulant regardless of INR: No NIHSS >25: No - Ineligibility reason(s) Reasons No tPA given: Outside of window - delayed arrival NIH Stroke Scale - Last Known Well Date/Time & Onset Date Last Known Well: 05/08/19 Time Last Known Well: 00:00 - Initial Evaluation Level of consciousness: Alert Ask patient the month and their age: Answers both correctly Ask patient to open & close eyes; make fist and let go: Obeys both correctly Best gaze (horizontal eye movement): Normal Visual field testing: No visual field loss Facial paresis (Show teeth/raise eyebrows/close eyes tight): Normal symmetrical movement Motor Function: Left Arm: Normal Motor Function: Right Arm: Normal (extends arm 90 (or 45) degrees for 10 seconds without drift Motor Function: Left Leg: Normal (extends leg 30 degrees for 5 seconds without drift) Motor Function: Right Leg: Normal (extends leg 30 degrees for 5 seconds without drift) Limb Ataxia: No ataxia Sensory(Use pinprick test arms,legs,trunk,face/side to side): Normal Best language (Describe picture, name items, read sentences): No Aphasia Dysarthria (read several words): Normal articulation Extinction and Inattention: No abnormality - Total Score NIH Stroke Scale Score: 0 Past History - Past Medical History Allergies/Adverse Reactions: Allergies Allergy/AdvReac Type Severity Reaction Status Date / Time aspirin AdvReac Mild Verified 05/09/19 12:33 oxycodone [From Percocet] AdvReac Mild Verified 05/09/19 12:33 Home Medications: Ambulatory Orders Allopurinol 300 mg PO DAILY 01/23/19 Alprazolam [Xanax] 0.5 mg PO PRN PRN 01/23/19 Famotidine [Pepcid] 40 mg PO DAILY 01/23/19 Gabapentin 300 mg PO BID 01/23/19 Metformin HCl [Glucophage] 1,000 mg PO AM 01/23/19 Sitagliptin Phosphate [Januvia] 50 mg PO DAILY 01/23/19 Zolpidem Tartrate 10 mg PO HS PRN 01/23/19 Amlodipine Besylate [Norvasc -] 10 mg PO DAILY #30 tablet 03/02/19 Amox-Tr/K Cl [Augmentin 500-125mg Tablet -] 1 tab PO BID@0800,1730 #8 tablet Docusate Sodium [Colace -] 100 mg PO TID capsule 05/05/19 Anemia: No Asthma: No Cancer: No Cardiac Disorders: No CVA: No COPD: No CHF: No Dementia: No Diabetes: Yes GI Disorders: No Disorders: No HTN: Yes Hypercholesterolemia: No Liver Disease: No Seizures: No Thyroid Disease: No - Surgical History Abdominal Surgery: No Appendectomy: No Cardiac Surgery: No Cholecystectomy: No GI Surgery: Yes Lung Surgery: No Neurologic Surgery: No Orthopedic Surgery: Yes (right hip, right knee replacement, left knee replacement, right foot drop) - Immunization History Immunization Up to Date: Yes - Psycho Social/Smoking Cessation Hx Smoking History: Never smoked Have you smoked in the past 12 months: No If you are a former smoker, when did you quit?: over 35 yrs ago Hx Alcohol Use: No Drug/Substance Use Hx: No Substance Use Type: None Hx Substance Use Treatment: No *Physical Exam - Vital Signs Last Vital Signs Temp Pulse Resp BP Pulse Ox 97.5 F L 80 18 141/75 98 05/09/19 12:34 05/09/19 12:34 05/09/19 12:34 05/09/19 12:34 05/09/19 12:34 ED Treatment Course - LABORATORY CBC & Chemistry Diagram: 05/09/19 14:40 05/09/19 14:40 - RADIOLOGY Radiology Studies Ordered: Category Date Time Status HEAD CT WITHOUT CONTRAST [CT] Stat CT Scan 05/09/19 14:08 Ordered Medical Decision Making - Critical Care Time Total Critical Care Time (minutes): 45 (acute CVA) Critical Care Statement: The care of this patient involved high complexity decision making to prevent further life threatening deterioration of the patient 's condition and/or to evaluate & treat vital organ system(s) failure or risk of failure. - Medical Decision Making 05/09/19 15:42 Vital Signs Temp Pulse Resp BP Pulse Ox 97.5 F L 80 18 141/75 98 05/09/19 12:34 05/09/19 12:34 05/09/19 12:34 05/09/19 12:34 05/09/19 12:34 05/09/19 15:[address] Flanagan - confirmed and updated, was concerned for the right arm weakness yesterday ?right arm prox weakness/leg pain/swelling NIHSS zero. not tpa candidate >24 hours of last normal and last onset of sx CT head to eval for CVA. +nonhemorrhagic left sided CVA noted, left stinson radiata no focal neuro deficit here. not tpa candidate as >24 hours of sx. ASA given, protective measure and prevention of plt aggregation. high dose statin MRI/carotid/echo. Duplex of b/l extremities to eval for DVT, negative labs and lytes unremarkable, trop neg, reassuring augmentin was stopped due to weakness today. sensitivities reviewed, prior e coli corbett sensitive. start IV ceftriaxone for acute UTI. admit to Dr Flanagan, s/o to [facility] for medical management, stroke/neuro eval, tele, 05/09/19 18:20 Discharge - Discharge Information Problems reviewed: Yes Clinical Impression/Diagnosis: Weakness UTI (urinary tract infection) Qualifiers: Urinary tract infection type: site unspecified Hematuria presence: without hematuria Qualified Code(s): N39.0 - Urinary tract infection, site not specified CVA (cerebral vascular accident) Qualifiers: CVA mechanism: unspecified Qualified Code(s): I63.9 - Cerebral infarction, unspecified Condition: Fair - Admission Yes - Follow up/Referral - Patient Discharge Instructions - Post Discharge Activity
[2019-05-09 15:12] LABS: BASO % 0.7 % (0-2.0); EOS % 1.7 % (0-4.5); HEMATOCRIT 33.2 % (32.4-45.2); HEMOGLOBIN 10.7 GM/dL (10.7-15.3); LYMPH % 11.6 % (8-40); MCHC 32.3 g/dl (32.0-36.0); MEAN CELL VOLUME 80.5 fl (80-96); MEAN PLT VOLUME 9.7 fl (7.5-11.1); MONO % 8.6 % (3.8-10.2); NEUT % 77.4 % (42.8-82.8); PLATELET COUNT 309 K/MM3 (134-434); RBC 4.13 M/mm3 (3.60-5.2); RDW 17.5 % (11.6-15.6); WHITE BLOOD COUNT 10.4 K/mm3 (4.0-10.0)
[2019-05-09 15:26] LABS: HYALINE CASTS 3 /lpf (0-8); PH,URINE 5.5 (5.0-8.0); URINE APPEARANCE CLOUDY; URINE BACTERIA 18.1 /hpf (NEGATIVE); URINE BILIRUBIN NEGATIVE (NEGATIVE); URINE COLOR YELLOW; URINE GLUCOSE (UA) NEGATIVE (NEGATIVE); URINE KETONE NEGATIVE (NEGATIVE); URINE LEUK ESTERASE 2+ (NEGATIVE); URINE NITRITE NEGATIVE (NEGATIVE); URINE PROTEIN 2+ (NEGATIVE); URINE RBC 49 /hpf (0-4); URINE UROBILINOGEN 0.2 mg/dL (0.2-1.0); URINE WBC 205 /hpf (0-5)
[2019-05-09 15:40] LABS: ALBUMIN 3.2 g/dl (3.4-5.0); BILIRUBIN,TOTAL 0.4 mg/dL (0.2-1); BLOOD UREA NITROGEN 22.9 mg/dL (7-18); CREATININE 1.3 mg/dL (0.55-1.3); POTASSIUM 4.4 mmol/L (3.5-5.1); TOT PROT 6.7 g/dl (6.4-8.2)
[2019-05-09 16:09] LABS: YEAST FEW (NEGATIVE)
[2019-05-09] MEDS ORDERED: CEFTRIAXONE 1,000 MG in DEXTROSE 5%-WATER - 50 ML IVPB ONE (17:54)
[2019-05-09] MEDS ORDERED: ASPIRIN 81 MG CHEWABLE TABLETS PO ONE (17:58)
--- NOTE | 2019-05-09 18:37 | HP ---
Admitting History and Physical - Primary Care Physician PCP: Amaris Rosales - Admission Chief Complaint: generalized weakness, and right arm weakness History of Present Illness: recent hospitalization for infected renal stone, s/p lithotripsy last week. dcd 3 days ago, developed generalized weakness and muscle aches yesterday, today came to office for f/up c/o difficulty getting out of chair, difficulty raising her right arm and generalized weakness. 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 History Source: Patient Limitations to Obtaining History: No Limitations - Past Medical History Cardiovascular: Yes: Other (left bundle branch block) Renal/: Yes: Renal Calculi (known history-has had transcutaneous stone removal over 15 yrs ago bilateral lithotripsy 2018, 2019) Musculoskeletal: Yes: Chronic low back pain, Other (ostearthritis) Endocrine: Yes: Diabetes Mellitus, Other (obesity) - Past Surgical History Past Surgical History: Yes: Cataract Removal (bilateral 2016), Hysterectomy ( BSO 1995 endometrial hyperplasia), Joint Replacement (left knee 2014 right total hip replacement 2014-postop dropped foot), Tonsillectomy - Smoking History Smoking history: Never smoked Have you smoked in the past 12 months: No If you are a former smoker, when did you quit?: over 35 yrs ago - Alcohol/Substance Use Hx Alcohol Use: No - Social History ADL: Independent History of Recent Travel: No Home Medications - Allergies Allergies/Adverse Reactions: Allergies Allergy/AdvReac Type Severity Reaction Status Date / Time aspirin AdvReac Mild Verified 05/09/19 12:33 oxycodone [From Percocet] AdvReac Mild Verified 05/09/19 12:33 - Home Medications Home Medications: Ambulatory Orders Allopurinol 300 mg PO DAILY 01/23/19 Alprazolam [Xanax] 0.5 mg PO PRN PRN 01/23/19 Famotidine [Pepcid] 40 mg PO DAILY 01/23/19 Gabapentin 300 mg PO BID 01/23/19 Metformin HCl [Glucophage] 1,000 mg PO AM 01/23/19 Sitagliptin Phosphate [Januvia] 50 mg PO DAILY 01/23/19 Zolpidem Tartrate 10 mg PO HS PRN 01/23/19 Amlodipine Besylate [Norvasc -] 10 mg PO DAILY #30 tablet 03/02/19 Amox-Tr/K Cl [Augmentin 500-125mg Tablet -] 1 tab PO BID@0800,1730 #8 tablet Docusate Sodium [Colace -] 100 mg PO TID capsule 05/05/19 Review of Systems - Review of Systems Constitutional: reports: No Symptoms Eyes: reports: No Symptoms HENT: reports: No Symptoms Neck: reports: No Symptoms Cardiovascular: reports: No Symptoms Respiratory: reports: No Symptoms Gastrointestinal: reports: No Symptoms Genitourinary: reports: Frequency (with mild dysuria) Musculoskeletal: reports: Back Pain, Joint Pain, Joint Swelling, Muscle Pain Neurological: reports: Other (right arm weakness 3-4/5 chronic old right footdrop) Psychiatric: reports: Anxiety Physical Examination Vital Signs: Vital Signs Temperature 97.5 F L 05/09/19 12:34 Pulse Rate 80 05/09/19 12:34 Respiratory Rate 18 05/09/19 12:34 Blood Pressure 141/75 05/09/19 12:34 O2 Sat by Pulse Oximetry (%) 98 05/09/19 12:34 Constitutional: Yes: Anxious, Obese Eyes: Yes: Conjunctiva Clear, EOM Intact HENT: Yes: Atraumatic, Normocephalic Neck: Yes: Supple, Trachea Midline Cardiovascular: Yes: Regular Rate and Rhythm Respiratory: Yes: CTA Bilaterally Gastrointestinal: Yes: Normal Bowel Sounds, Soft, Abdomen, Obese Renal/: Yes: WNL. No: CVA Tenderness - Left, CVA Tenderness - Right Musculoskeletal: Yes: Back Pain Edema: Yes Edema: LLE: 1+, RLE: 2+ Peripheral Pulses WNL: Yes Neurological: Yes: Oriented (x3), Weakness (right upper ext 3-4/5, old right mild foot drop) Psychiatric: Yes: WNL Labs: CBC, BMP 05/09/19 14:40 05/09/19 14:40 Imaging - Results Cat Scan: Report Reviewed (acute left nonhemorrhagic CVA) Ultrasound: Report Reviewed (no DVT in BLLE) EKG: Pending Problem List - Problems (1) CVA (cerebral vascular accident) Problems reviewed: Yes Code(s): I63.9 - CEREBRAL INFARCTION, UNSPECIFIED Qualifiers: CVA mechanism: unspecified Qualified Code(s): I63.9 - Cerebral infarction, unspecified (2) UTI (urinary tract infection) Problems reviewed: Yes Code(s): N39.0 - URINARY TRACT INFECTION, SITE NOT SPECIFIED Qualifiers: Urinary tract infection type: site unspecified Hematuria presence: without hematuria Qualified Code(s): N39.0 - Urinary tract infection, site not specified (3) Diabetes mellitus Code(s): E11.9 - TYPE 2 DIABETES MELLITUS WITHOUT COMPLICATIONS Qualifiers: Diabetes mellitus type: type 2 Diabetes mellitus jail insulin use: without jail use Diabetes mellitus complication status: with other specified complication Qualified Code(s): E11.69 - Type 2 diabetes mellitus with other specified complication (4) Hypertension Code(s): I10 - ESSENTIAL (PRIMARY) HYPERTENSION Qualifiers: Hypertension type: essential hypertension Qualified Code(s): I10 - Essential (primary) hypertension (5) Obesity Code(s): E66.9 - OBESITY, UNSPECIFIED Qualifiers: Obesity type: due to excess calories Body mass index: BMI 50.0-59.9 (6) T2DM (type 2 diabetes mellitus) Code(s): E11.9 - TYPE 2 DIABETES MELLITUS WITHOUT COMPLICATIONS Qualifiers: Diabetes mellitus jail insulin use: without jail use Diabetes mellitus complication status: with neurologic complications Diabetes mellitus complication detail: with other neurological complication Qualified Code(s): E11.49 - Type 2 diabetes mellitus with other diabetic neurological complication Assessment/Plan telemetry monitoring add asa, statin MRI brain, echo, carotid US physical therapy gi/dvt prophylaxis likely will need STR
[2019-05-09] MEDS ORDERED: ASPIRIN 81 MG CHEWABLE TABLETS ONE (19:11)
[2019-05-09] MEDS ORDERED: CEFTRIAXONE 1 GM/50 ML BAG ONE (19:11)
[2019-05-09] MEDS ORDERED: DOCUSATE SODIUM 100 MG CAPSULE (FP) PO ONE (22:40)
[2019-05-09] MEDS ORDERED: ATORVASTATIN CA 40 MG TABLET (FP) ONE (22:40)
[2019-05-09] MEDS ORDERED: GABAPENTIN 100 MG CAPSULE ONE (22:41)
[2019-05-09] MEDS: DOCUSATE SODIUM 100 MG CAPSULE (FP) PO SCH (22:51)
[2019-05-09] MEDS: ATORVASTATIN CA 40 MG TABLET (FP) PO SCH (22:51)
[2019-05-09] MEDS: GABAPENTIN 300 MG CAPSULE PO SCH (22:52)
[2019-05-09] MEDS ORDERED: ZOLPIDEM TARTRATE 5 MG TABLET ONE (23:58)
[2019-05-10] MEDS ORDERED: ACETAMINOPHEN 325 MG TABLET (FP) PO ONE (00:12)
[2019-05-10] MEDS ORDERED: ACETAMINOPHEN 325 MG TABLET (FP) ONE (00:14)
[2019-05-10] MEDS: DOCUSATE SODIUM 100 MG CAPSULE (FP) PO SCH ×4 (07:17→23:03)
[2019-05-10] MEDS: metFORMIN HCL 500 MG TABLET (FP) PO SCH (07:17)
[2019-05-10] MEDS: sitaGLIPtin PHOSPHATE 50 MG TABLET PO SCH (07:17)
[2019-05-10] MEDS ORDERED: cefTRIAXone SODIUM 1 GM VIAL ONE (09:31)
[2019-05-10] MEDS ORDERED: DEXTROSE 5%-WATER - 50 ML IVPB ONE (09:31)
[2019-05-10] MEDS: GABAPENTIN 300 MG CAPSULE PO SCH ×2 (09:37→23:02)
[2019-05-10] MEDS: FAMOTIDINE 20 MG TABLET PO SCH (09:37)
[2019-05-10] MEDS: CEFTRIAXONE 1 GM in DEXTROSE 5%-WATER - 50 ML IVPB SCH (09:37)
[2019-05-10] MEDS: ALLOPURINOL 300 MG TABLET (FP) PO SCH (09:37)
[2019-05-10] MEDS: ALPRAZolam 0.25 MG TABLET PO PRN (09:37)
[2019-05-10] MEDS: amLODIPine BESYLATE 10 MG TABLET (FP) PO SCH (09:37)
[2019-05-10] MEDS: ASPIRIN COATED 81 MG TABLET.EC PO SCH (09:37)
[2019-05-10] MEDS: ENOXAPARIN NA (PORCINE) 40 MG/0.4 ML DISP.SYRIN SQ SCH (09:38)
--- NOTE | 2019-05-10 10:38 | CONSULT ---
Consult - text type - Consultation Consultation Note: Neurology - Primary Care Physician PCP: Amaris Rosales - Admission Chief Complaint: generalized weakness, and right arm weakness History of Present Illness: 68 YOF with obesity, HTN, NIDDM, nephrolithiasis, gallstone, samreen en y gastric bypass (2002), recurrent UTI/E. coli urosepsis and bacteremia, obsructed stones c/b infection s/p lithotripsy and stenting (last performed on 05/01/[address] Reed) discharged earlier this month for urosepsis/infected ureteral stone on augmentin, which she was taking after UTI/obstructed stone s/p stenting. One week of abx inpatient, transitioned to augmentin x since 05/05/19, has two more doses left skipped on day of admission due to her doctor's recs due to the weakness. presenting on day of admission with generalized weakness x 1 week, but worse beginning on the day before admission. +difficult walking, she noted her right upper arm was weaker and she could not lift it or get out of bed, beginning about late afternoon to "middle of the night" on day before admission. She was unable to provide an exact time but >12-24 hours before day of admission. She stated RLE pain and swelling, worse than left no fall or trauma. Denies fever, chills, chest pain, SOB, palpitation, dizziness, N, V, D, abdominal pain, bladder and bowel problems, paresthesias, leg swelling/pain, rash. Ct of head completed and demonstrated possible small subtle acute nonhemorrhagic infarct within the left frontal stinson radiata. Carotid ultrasound also performed and showed mild atherosclerotic plaque with no hemodinamically stenosis. Lower extremities venous doppler reviewed and showed no DVT identified. MRI brain ordered and awaiting completion. Explained to patient that CVA likely eitology to her weakness. She complains of pain and explained this is not likely from CVA. Was not taking ASA at home, advised ASA 81mg daily. Reports being on celebrex which I researched and dose of ASA > 325 would not be advised and 81mg ASA should be acceptable. LDL appropriate at 84. - Past Medical History Cardiovascular: Yes: Other (left bundle branch block) Renal/: Yes: Renal Calculi (known history-has had transcutaneous stone removal over 15 yrs ago bilateral lithotripsy 2018, 2019) Musculoskeletal: Yes: Chronic low back pain, Other (ostearthritis) Endocrine: Yes: Diabetes Mellitus, Other (obesity) - Past Surgical History Past Surgical History: Yes: Cataract Removal (bilateral 2016), Hysterectomy ( BSO 1996 endometrial hyperplasia), Joint Replacement (left knee 2014 right total hip replacement 2014-postop dropped foot), Tonsillectomy - Smoking History Smoking history: Never smoked Have you smoked in the past 12 months: No If you are a former smoker, when did you quit?: over 35 yrs ago - Alcohol/Substance Use Hx Alcohol Use: No - Family History HTN Social History ADL: Independent History of Recent Travel: No Review of Systems - Review of Systems Constitutional: reports: No Symptoms Eyes: reports: No Symptoms HENT: reports: No Symptoms Neck: reports: No Symptoms Cardiovascular: reports: No Symptoms Respiratory: reports: No Symptoms Gastrointestinal: reports: No Symptoms Genitourinary: reports: Frequency (with mild dysuria) Musculoskeletal: reports: Back Pain, Joint Pain, Joint Swelling, Muscle Pain Neurological: reports: Other (right arm weakness 3-4/5 chronic old right footdrop) Psychiatric: reports: Anxiety Home Medications - Allergies Allergies/Adverse Reactions: Allergies Allergy/AdvReac Type Severity Reaction Status Date / Time aspirin AdvReac Mild Verified 05/09/19 12:33 oxycodone [From Percocet] AdvReac Mild Verified 05/09/19 12:33 - Home Medications Home Medications: Ambulatory Orders Allopurinol 300 mg PO DAILY 01/23/19 Alprazolam [Xanax] 0.5 mg PO PRN PRN 01/23/19 Famotidine [Pepcid] 40 mg PO DAILY 01/23/19 Gabapentin 300 mg PO BID 01/23/19 Metformin HCl [Glucophage] 1,000 mg PO AM 01/23/19 Sitagliptin Phosphate [Januvia] 50 mg PO DAILY 01/23/19 Zolpidem Tartrate 10 mg PO HS PRN 01/23/19 Amlodipine Besylate [Norvasc -] 10 mg PO DAILY #30 tablet 03/02/19 Amox-Tr/K Cl [Augmentin 500-125mg Tablet -] 1 tab PO BID@0800,1730 #8 tablet Docusate Sodium [Colace -] 100 mg PO TID capsule 05/05/19 Active Medications Allopurinol (Zyloprim -) 300 mg PO DAILY [facility] Last Admin: 05/10/19 09:37 Dose: 300 mg Alprazolam (Xanax -) 0.5 mg PO BID PRN PRN Reason: ANXIETY Last Admin: 05/10/19 09:37 Dose: 0.5 mg Amlodipine Besylate (Norvasc -) 10 mg PO DAILY [facility] Last Admin: 05/10/19 09:37 Dose: 10 mg Aspirin (Ecotrin -) 81 mg PO DAILY [facility] Last Admin: 05/10/19 09:37 Dose: 81 mg Atorvastatin Calcium (Lipitor -) 40 mg PO HS [facility] Last Admin: 05/09/19 22:51 Dose: 40 mg Docusate Sodium (Colace -) 100 mg PO TID [facility] Last Admin: 05/10/19 07:18 Dose: Not Given Enoxaparin Sodium (Lovenox -) 40 mg SQ DAILY [facility] Last Admin: 05/10/19 09:38 Dose: 40 mg Famotidine (Pepcid -) 20 mg PO DAILY [facility] Last Admin: 05/10/19 09:37 Dose: 20 mg Gabapentin (Neurontin -) 300 mg PO BID [facility] Last Admin: 05/10/19 09:37 Dose: 300 mg Ceftriaxone Sodium 1 gm/ (Dextrose) 50 mls @ 100 mls/hr IVPB DAILY [facility] Last Admin: 05/10/19 09:37 Dose: 100 mls/hr Metformin HCl (Glucophage -) 1,000 mg PO AM [facility] Last Admin: 05/10/19 07:17 Dose: 1,000 mg Sitagliptin Phosphate (Januvia -) 50 mg PO ACBK [facility] Last Admin: 05/10/19 07:17 Dose: 50 mg Zolpidem Tartrate (Ambien -) 5 mg PO HS PRN PRN Reason: INSOMNIA Last Admin: 05/10/19 00:00 Dose: 5 mg Physical Examination Vital Signs: Vital Signs Period Temp Pulse Resp BP Sys/[place] Pulse Ox Last 24 Hr 97.5 F-98.5 F 70-89 18-22 139-165/55-76 98-100 Constitutional: Yes: Anxious, Obese Eyes: Yes: Conjunctiva Clear, EOM Intact HENT: Yes: Atraumatic, Normocephalic Neck: Yes: Supple, Trachea Midline Cardiovascular: Yes: Regular Rate and Rhythm Respiratory: Yes: CTA Bilaterally Gastrointestinal: Yes: Normal Bowel Sounds, Soft, Abdomen, Obese Renal/: Yes: WNL. No: CVA Tenderness - Left, CVA Tenderness - Right Musculoskeletal: Yes: Back Pain Edema: Yes Edema: LLE: 1+, RLE: 2+ Peripheral Pulses WNL: Yes Neurological: Yes: Oriented (x3), RUE 4-/5, RLE 5-/5, Sensory intact, gait antalgic, finger to nose intact Psychiatric: Yes: WNL Labs: CBCD WBC 10.4 K/mm3 (4.0-10.0) H 05/09/19 14:40 RBC 4.13 M/mm3 (3.60-5.2) 05/09/19 14:40 Hgb 10.7 GM/dL (10.7-15.3) 05/09/19 14:40 Hct 33.2 % (32.4-45.2) 05/09/19 14:40 MCV 80.5 fl (80-96) 05/09/19 14:40 MCHC 32.3 g/dl (32.0-36.0) 05/09/19 14:40 RDW 17.5 % (11.6-15.6) H 05/09/19 14:40 Plt Count 309 K/MM3 (134-434) 05/09/19 14:40 MPV 9.7 fl (7.5-11.1) 05/09/19 14:40 CMP Sodium 141 mmol/L (136-145) 05/09/19 14:40 Potassium 4.4 mmol/L (3.5-5.1) 05/09/19 14:40 Chloride 107 mmol/L (98-107) 05/09/19 14:40 Carbon Dioxide 25 mmol/L (21-32) 05/09/19 14:40 Anion Gap 10 MMOL/L (8-16) 05/09/19 14:40 BUN 22.9 mg/dL (7-18) H 05/09/19 14:40 Creatinine 1.3 mg/dL (0.55-1.3) 05/09/19 14:40 Random Glucose 151 mg/dL (74-106) H 05/09/19 14:40 Calcium 9.0 mg/dL (8.5-10.1) 05/09/19 14:40 Total Bilirubin 0.4 mg/dL (0.2-1) 05/09/19 14:40 AST 22 U/L (15-37) 05/09/19 14:40 ALT 17 U/L (13-61) 05/09/19 14:40 Alkaline Phosphatase 84 U/L (45-117) 05/09/19 14:40 Total Protein 6.7 g/dl (6.4-8.2) 05/09/19 14:40 Albumin 3.2 g/dl (3.4-5.0) L 05/09/19 14:40 CARDIAC ENZYMES Creatine Kinase 74 U/L (26-192) 05/09/19 14:40 Troponin I < 0.02 ng/ml (0.00-0.05) 05/09/19 14:40 Assessment/Plan 68 YOF with obesity, HTN, NIDDM, nephrolithiasis, gallstone, samreen en y gastric bypass (2002), recurrent UTI/E. coli urosepsis and bacteremia, obsructed stones c/b infection s/p lithotripsy and stenting (last performed on 05/01/[address] Reed) discharged earlier this month for urosepsis/infected ureteral stone on augmentin, which she was taking after UTI/obstructed stone s/p stenting. One week of abx inpatient, transitioned to augmentin x since 05/05/19, has two more doses left skipped on day of admission due to her doctor's recs due to the weakness. presenting on day of admission with generalized weakness x 1 week, but worse beginning on the day before admission. +difficult walking, she noted her right upper arm was weaker and she could not lift it or get out of bed, beginning about late afternoon to "middle of the night" on day before admission. She was unable to provide an exact time but >12-24 hours before day of admission. She stated RLE pain and swelling, worse than left no fall or trauma. Denies fever, chills, chest pain, SOB, palpitation, dizziness, N, V, D, abdominal pain, bladder and bowel problems, paresthesias, leg swelling/pain, rash. Ct of head completed and demonstrated possible small subtle acute nonhemorrhagic infarct within the left frontal stinson radiata. Carotid ultrasound also performed and showed mild atherosclerotic plaque with no hemodinamically stenosis. Lower extremities venous doppler reviewed and showed no DVT identified. MRI brain ordered and awaiting completion. Explained to patient that CVA likely eitology to her weakness. She complains of pain and explained this is not likely from CVA. Was not taking ASA at home, advised ASA 81mg daily. Reports being on celebrex which I researched and dose of ASA > 325 would not be advised and 81mg ASA should be acceptable. MOnitor blood pressure, maintain normotensive range. PT/OT would be of benefit, short term rehab may be indicated. Fall precautions.
--- NOTE | 2019-05-10 12:30 | CON.ID ---
Consult - History of Present Illness History of Present Illness: 68 y.o. female with PMH of DM, obesity s/p gastric bypass, HTN, recurrent UTIs, and nephrolithiasis s/p lithotripsy and stent placement on 05/01/19 presents with c/o worsening RUE/RLE weakness. She states she began feeling week about one week ago and has progressively worsened. She has more difficulty raising her arm and has been unable to get out of bed. She has been on Augmentin after switch from IV antibiotics for a UTI and has nearly completed a full course of treatment. States her urine she is told is cloudy and feels a slight burning sensation at the end of urination. She is otherwise afebrile, alert, without distress. - Past Medical History Cardio/Vascular: Yes: Other (left bundle branch block) Renal/: Yes: Renal Calculi (known history-has had transcutaneous stone removal over 15 yrs ago bilateral lithotripsy 2018, 2019) Musculoskeletal: Yes: Chronic low back pain, Other (ostearthritis) Endocrine: Yes: Diabetes Mellitus, Other (obesity) - Past Surgical History Past Surgical History: Yes: Cataract Removal (bilateral 2016), Hysterectomy ( BSO 1996 endometrial hyperplasia), Joint Replacement (left knee 2014 right total hip replacement 2014-postop dropped foot), Tonsillectomy - Alcohol/Substance Use Hx Alcohol Use: No - Smoking History Smoking history: Never smoked Have you smoked in the past 12 months: No If you are a former smoker, when did you quit?: over 35 yrs ago - Social History ADL: Independent History of Recent Travel: No Home Medications - Allergies Allergies/Adverse Reactions: Allergies Allergy/AdvReac Type Severity Reaction Status Date / Time aspirin AdvReac Mild Verified 05/09/19 12:33 oxycodone [From Percocet] AdvReac Mild Verified 05/09/19 12:33 - Home Medications Home Medications: Ambulatory Orders Allopurinol 300 mg PO DAILY 01/23/19 Alprazolam [Xanax] 0.5 mg PO PRN PRN 01/23/19 Famotidine [Pepcid] 40 mg PO DAILY 01/23/19 Gabapentin 300 mg PO BID 01/23/19 Metformin HCl [Glucophage] 1,000 mg PO AM 01/23/19 Sitagliptin Phosphate [Januvia] 50 mg PO DAILY 01/23/19 Zolpidem Tartrate 10 mg PO HS PRN 01/23/19 Amlodipine Besylate [Norvasc -] 10 mg PO DAILY #30 tablet 03/02/19 Amox-Tr/K Cl [Augmentin 500-125mg Tablet -] 1 tab PO BID@0800,1730 #8 tablet Docusate Sodium [Colace -] 100 mg PO TID capsule 05/05/19 Review of Systems - Review of Systems Constitutional: reports: Weakness. denies: No Symptoms, Chills, Diaphoresis, Fever, Lethargy, Loss of Appetite, Malaise, Night Sweats, Unintentional Wgt. Loss, Other Eyes: reports: No Symptoms. denies: Blind Spots, Blurred Vision, Double Vision , Eye Pain, Floaters, Photophobia, Recent Change in Vision, Other HENT: reports: No Symptoms. denies: Difficult Swallowing, Ear Discharge, Ear Pain, Epistaxis, Gingival Bleeding, Hearing Loss, Mouth Swelling, Nasal Congestion, Ocular Prosthesis, Throat Pain, Toothache, Ringing in Ears, Other Neck: reports: No Symptoms. denies: Decreased ROM, Lumps, Pain on Movement, Stiffness, Swollen Glands, Tenderness, Other Cardiovascular: reports: No Symptoms. denies: Chest Pain, Edema, Palpitations, Shortness of Breath, Other Respiratory: reports: No Symptoms. denies: Cough, Exercise Intolerance, Hemoptysis, Orthopnea, PND, Snoring, SOB, SOB on Exertion, Wheezing, Other Gastrointestinal: reports: No Symptoms. denies: Abdominal Pain, Bloating, Constipation, Diarrhea, Dysphagia, Indigestion, Melena, Nausea, Rectal Bleeding , Vomiting, Vomiting Blood, Other Genitourinary: reports: Dysuria. denies: No Symptoms, Burning, Discharge, Flank Pain, Frequency, Hematuria, Incontinence, Lesions, Menses, Pain, Testicular Mass, Testicular Pain, Testicular Swelling, Urgency, Vaginal Bleeding , Other Musculoskeletal: reports: Extremity Pain, Muscle Weakness Integumentary: reports: No Symptoms. denies: Blister, Bruising, Change in Color , Eczema, Erythema, Incision, Lesions, Lump, Pallor, Pruritis, Rash, Wound, Other Neurological: reports: Weakness Endocrine: reports: No Symptoms. denies: Excessive Sweating, Flushing, Increased Hunger, Increased Thirst, Intolerance to Cold, Intolerance to Heat, Unexplained Weight Gain, Unexplained Weight Loss, Other Hematology/Lymphatic: reports: No Symptoms. denies: Easily Bruised, Excessive Bleeding, Swollen Glands, Other Psychiatric: reports: No Symptoms. denies: Altered Sleep Pattern, Anxiety, Depression, Hallucinations, Panic, Paranoia, Suicidal, Other Physical Exam Vital Signs: Vital Signs Temperature 98.1 F 05/10/19 08:00 Pulse Rate 82 05/10/19 08:00 Respiratory Rate 22 H 05/10/19 09:00 Blood Pressure 140/65 05/10/19 08:00 O2 Sat by Pulse Oximetry (%) 98 05/10/19 09:00 Constitutional: Yes: No Distress, Calm Eyes: Yes: Conjunctiva Clear Cardiovascular: Yes: Regular Rate and Rhythm Respiratory: Yes: CTA Bilaterally Gastrointestinal: Yes: Normal Bowel Sounds, Soft, Abdomen, Obese Renal/: Yes: WNL Musculoskeletal: Yes: Muscle Weakness (RUE) Edema: No Integumentary: Yes: WNL Neurological: Yes: Alert, Oriented Labs: CBC, BMP 05/09/19 14:40 05/09/19 14:40 Laboratory Tests 05/09/19 05/09/19 05/09/19 14:40 14:40 14:40 WBC 10.4 H RBC 4.13 Hgb 10.7 Hct 33.2 MCV 80.5 MCH 26.0 MCHC 32.3 RDW 17.5 H Plt Count 309 MPV 9.7 Absolute Neuts (auto) 8.1 H Neutrophils % 77.4 Lymphocytes % 11.6 D Monocytes % 8.6 Eosinophils % 1.7 Basophils % 0.7 Nucleated RBC % 0 Sodium 141 Potassium 4.4 Chloride 107 Carbon Dioxide 25 Anion Gap 10 BUN 22.9 H Creatinine 1.3 Est GFR (CKD-EPI)AfAm 49.16 Est GFR (CKD-EPI)NonAf 42.42 POC Glucometer Random Glucose 151 H Calcium 9.0 Total Bilirubin 0.4 AST 22 ALT 17 Alkaline Phosphatase 84 Creatine Kinase 74 Troponin I < 0.02 Total Protein 6.7 Albumin 3.2 L Triglycerides 129 Cholesterol 135 Total LDL Cholesterol 84 HDL Cholesterol 35 L Urine Color Urine Appearance Urine pH Ur Specific Sandstone Urine Protein Urine Glucose (UA) Urine Ketones Urine Blood Urine Nitrite Urine Bilirubin Urine Urobilinogen Ur Leukocyte Esterase Urine WBC (Auto) Urine RBC (Auto) Urine Casts (Auto) U Epithel Cells (Auto) Urine Bacteria (Auto) Urine Yeast (Auto) 05/09/19 05/10/19 14:52 07:15 WBC RBC Hgb Hct MCV MCH MCHC RDW Plt Count MPV Absolute Neuts (auto) Neutrophils % Lymphocytes % Monocytes % Eosinophils % Basophils % Nucleated RBC % Sodium Potassium Chloride Carbon Dioxide Anion Gap BUN Creatinine Est GFR (CKD-EPI)AfAm Est GFR (CKD-EPI)NonAf POC Glucometer 132 Random Glucose Calcium Total Bilirubin AST ALT Alkaline Phosphatase Creatine Kinase Troponin I Total Protein Albumin Triglycerides Cholesterol Total LDL Cholesterol HDL Cholesterol Urine Color Yellow Urine Appearance Cloudy Urine pH 5.5 Ur Specific Sandstone 1.019 Urine Protein 2+ H Urine Glucose (UA) Negative Urine Ketones Negative Urine Blood 2+ H Urine Nitrite Negative Urine Bilirubin Negative Urine Urobilinogen 0.2 Ur Leukocyte Esterase 2+ H Urine WBC (Auto) 205 Urine RBC (Auto) 49 Urine Casts (Auto) 3 U Epithel Cells (Auto) 3.0 Urine Bacteria (Auto) 18.1 Urine Yeast (Auto) Few Imaging - Results Cat Scan: Report Reviewed Ultrasound: Report Reviewed Problem List - Problems (1) CVA (cerebral vascular accident) Code(s): I63.9 - CEREBRAL INFARCTION, UNSPECIFIED Qualifiers: CVA mechanism: unspecified Qualified Code(s): I63.9 - Cerebral infarction, unspecified (2) UTI (urinary tract infection) Code(s): N39.0 - URINARY TRACT INFECTION, SITE NOT SPECIFIED Qualifiers: Urinary tract infection type: site unspecified Hematuria presence: without hematuria Qualified Code(s): N39.0 - Urinary tract infection, site not specified (3) Diabetes mellitus Code(s): E11.9 - TYPE 2 DIABETES MELLITUS WITHOUT COMPLICATIONS Qualifiers: Diabetes mellitus type: type 2 Diabetes mellitus fci insulin use: without fci use Diabetes mellitus complication status: with other specified complication Qualified Code(s): E11.69 - Type 2 diabetes mellitus with other specified complication (4) Hypertension Code(s): I10 - ESSENTIAL (PRIMARY) HYPERTENSION Qualifiers: Hypertension type: essential hypertension Qualified Code(s): I10 - Essential (primary) hypertension (5) Obesity Code(s): E66.9 - OBESITY, UNSPECIFIED Qualifiers: Obesity type: due to excess calories Body mass index: BMI 50.0-59.9 (6) Renal calculi Code(s): N20.0 - CALCULUS OF KIDNEY (7) T2DM (type 2 diabetes mellitus) Code(s): E11.9 - TYPE 2 DIABETES MELLITUS WITHOUT COMPLICATIONS Qualifiers: Diabetes mellitus lobsterman insulin use: without lobsterman use Diabetes mellitus complication status: with neurologic complications Diabetes mellitus complication detail: with other neurological complication Qualified Code(s): E11.49 - Type 2 diabetes mellitus with other diabetic neurological complication Assessment/Plan 68 y.o. female with PMH of DM, obesity s/p gastric bypass, HTN, recurrent UTIs, and nephrolithiasis s/p lithotripsy and stent placement on 05/01/19 presents with c/o worsening RUE/RLE weakness over the past week. Has been on antibiotics for a UTI since last admission. Acute CVA UTI Nephrolithiasis s/p lithotripsy/stent DM Obese HTN -- continue Ceftriaxone empirically for now -- follow up results of Urine culture -- continue monitor vitals -- Neurology following Will follow Thank you
--- NOTE | 2019-05-10 13:16 | EKG ---
Test Reason : Blood Pressure : / mmHG Vent. Rate : 083 BPM Atrial Rate : 083 BPM P-R Int : 176 ms QRS Dur : 132 ms QT Int : 392 ms P-R-T Axes : 033 -55 105 degrees QTc Int : 460 ms NORMAL SINUS RHYTHM LEFT AXIS DEVIATION NON-SPECIFIC INTRA-VENTRICULAR CONDUCTION BLOCK INFERIOR INFARCT , AGE UNDETERMINED ANTEROLATERAL INFARCT , AGE UNDETERMINED ABNORMAL ECG WHEN COMPARED WITH ECG OF 28-APR-2019 15:50, NON-SPECIFIC INTRA-VENTRICULAR CONDUCTION BLOCK HAS REPLACED LEFT BUNDLE BRANCH BLOCK ANTERIOR INFARCT IS NOW PRESENT ANTEROLATERAL INFARCT IS NOW PRESENT INFERIOR INFARCT IS NOW PRESENT Confirmed by OLIVER KENDALL MD ([id number]) on 05/10/2019 1:16:04 PM Referred By: Confirmed By:OLIVER KENDALL MD
--- NOTE | 2019-05-10 19:27 | PN ---
Progress Note, Physician Chief Complaint: Feels better - Current Medication List Current Medications: Active Medications Allopurinol (Zyloprim -) 300 mg PO DAILY REPLACED BY [facility] Last Admin: 05/10/19 09:37 Dose: 300 mg Alprazolam (Xanax -) 0.5 mg PO BID PRN PRN Reason: ANXIETY Last Admin: 05/10/19 09:37 Dose: 0.5 mg Amlodipine Besylate (Norvasc -) 10 mg PO DAILY REPLACED BY [facility] Last Admin: 05/10/19 09:37 Dose: 10 mg Aspirin (Ecotrin -) 81 mg PO DAILY REPLACED BY [facility] Last Admin: 05/10/19 09:37 Dose: 81 mg Atorvastatin Calcium (Lipitor -) 40 mg PO HS REPLACED BY [facility] Last Admin: 05/09/19 22:51 Dose: 40 mg Docusate Sodium (Colace -) 100 mg PO TID REPLACED BY [facility] Last Admin: 05/10/19 15:13 Dose: 100 mg Enoxaparin Sodium (Lovenox -) 40 mg SQ DAILY REPLACED BY [facility] Last Admin: 05/10/19 09:38 Dose: 40 mg Famotidine (Pepcid -) 20 mg PO DAILY REPLACED BY [facility] Last Admin: 05/10/19 09:37 Dose: 20 mg Gabapentin (Neurontin -) 300 mg PO BID REPLACED BY [facility] Last Admin: 05/10/19 09:37 Dose: 300 mg Ceftriaxone Sodium 1 gm/ (Dextrose) 50 mls @ 100 mls/hr IVPB DAILY REPLACED BY [facility] Last Admin: 05/10/19 09:37 Dose: 100 mls/hr Metformin HCl (Glucophage -) 1,000 mg PO AM REPLACED BY [facility] Last Admin: 05/10/19 07:17 Dose: 1,000 mg Sitagliptin Phosphate (Januvia -) 50 mg PO ACBK REPLACED BY [facility] Last Admin: 05/10/19 07:17 Dose: 50 mg Zolpidem Tartrate (Ambien -) 5 mg PO HS PRN PRN Reason: INSOMNIA Last Admin: 05/10/19 00:00 Dose: 5 mg - Objective Vital Signs: Vital Signs Temperature 98.5 F 05/10/19 18:00 Pulse Rate 88 05/10/19 18:00 Respiratory Rate 21 H 05/10/19 18:00 Blood Pressure 141/63 05/10/19 18:00 O2 Sat by Pulse Oximetry (%) 98 05/10/19 09:00 Constitutional: Yes: No Distress Neck: Yes: Supple Cardiovascular: Yes: Regular Rate and Rhythm, S1, S2 Respiratory: Yes: CTA Bilaterally Gastrointestinal: Yes: Normal Bowel Sounds, Soft Neurological: Yes: Alert, Oriented. No: Loss of Sensation ...Motor Strength: LLE, RUE Labs: CBC, BMP 05/09/19 14:40 05/09/19 14:40 Problem List - Problems (1) CVA (cerebral vascular accident) Assessment/Plan: Improving Code(s): I63.9 - CEREBRAL INFARCTION, UNSPECIFIED Qualifiers: CVA mechanism: unspecified Qualified Code(s): I63.9 - Cerebral infarction, unspecified (2) UTI (urinary tract infection) Assessment/Plan: Ceftriaxone Code(s): N39.0 - URINARY TRACT INFECTION, SITE NOT SPECIFIED Qualifiers: Urinary tract infection type: site unspecified Hematuria presence: without hematuria Qualified Code(s): N39.0 - Urinary tract infection, site not specified
[2019-05-10] MEDS: ATORVASTATIN CA 40 MG TABLET (FP) PO SCH (23:02)
[2019-05-10] MEDS: ZOLPIDEM TARTRATE 5 MG TABLET PO PRN ×2 (23:08)
[2019-05-10] MEDS ORDERED: ACETAMINOPHEN 325 MG TABLET (FP) PO PRN (23:34)
[2019-05-10] MEDS: ACETAMINOPHEN 325 MG TABLET (FP) PO PRN (23:46)
[2019-05-11] MEDS: DOCUSATE SODIUM 100 MG CAPSULE (FP) PO SCH ×3 (07:10→22:22)
[2019-05-11] MEDS: sitaGLIPtin PHOSPHATE 50 MG TABLET PO SCH (07:11)
[2019-05-11] MEDS: metFORMIN HCL 500 MG TABLET (FP) PO SCH (07:11)
[2019-05-11] MEDS ORDERED: DEXTROSE 5%-WATER - 50 ML IVPB ONE (09:26)
[2019-05-11] MEDS ORDERED: cefTRIAXone SODIUM 1 GM VIAL ONE (09:26)
[2019-05-11] MEDS: amLODIPine BESYLATE 10 MG TABLET (FP) PO SCH (09:39)
[2019-05-11] MEDS: FAMOTIDINE 20 MG TABLET PO SCH (09:39)
[2019-05-11] MEDS: ALLOPURINOL 300 MG TABLET (FP) PO SCH (09:39)
[2019-05-11] MEDS: ASPIRIN COATED 81 MG TABLET.EC PO SCH (09:39)
[2019-05-11] MEDS: ALPRAZolam 0.25 MG TABLET PO PRN ×2 (09:39→22:23)
[2019-05-11] MEDS: GABAPENTIN 300 MG CAPSULE PO SCH ×2 (09:39→22:22)
[2019-05-11] MEDS: CEFTRIAXONE 1 GM in DEXTROSE 5%-WATER - 50 ML IVPB SCH (09:40)
[2019-05-11] MEDS: ENOXAPARIN NA (PORCINE) 40 MG/0.4 ML DISP.SYRIN SQ SCH (09:40)
--- NOTE | 2019-05-11 10:26 | PN ---
Progress Note (short form) - Note Progress Note: Neurology - Primary Care Physician PCP: Amaris Rosales - Admission Chief Complaint: generalized weakness, and right arm weakness History of Present Illness: 68 YOF with obesity, HTN, NIDDM, nephrolithiasis, gallstone, samreen en y gastric bypass (2002), recurrent UTI/E. coli urosepsis and bacteremia, obsructed stones c/b infection s/p lithotripsy and stenting (last performed on 05/01/[address] Reed) discharged earlier this month for urosepsis/infected ureteral stone on augmentin, which she was taking after UTI/obstructed stone s/p stenting. One week of abx inpatient, transitioned to augmentin x since 05/05/19, has two more doses left skipped on day of admission due to her doctor's recs due to the weakness. Presenting on day of admission with generalized weakness x 1 week, but worse beginning on the day before admission. +difficult walking, she noted her right upper arm was weaker and she could not lift it or get out of bed, beginning about late afternoon to "middle of the night" on day before admission. She was unable to provide an exact time but >12-24 hours before day of admission. She stated RLE pain and swelling, worse than left no fall or trauma. Denies fever, chills, chest pain, SOB, palpitation, dizziness, N, V, D, abdominal pain, bladder and bowel problems, paresthesias, leg swelling/pain, rash. Ct of head completed and demonstrated possible small subtle acute nonhemorrhagic infarct within the left frontal stinson radiata. Carotid ultrasound also performed and showed mild atherosclerotic plaque with no hemodinamically stenosis. Lower extremities venous doppler reviewed and showed no DVT identified. MRI brain ordered and awaiting completion, patient reports having rods and therefore MRI may not be feasible. Explained to patient that CVA likely eitology to her weakness. She complains of pain and explained this is not likely from CVA. Was not taking ASA at home, advised ASA 81mg daily. Reports being on celebrex which I researched and dose of ASA > 325 would not be advised and 81mg ASA should be acceptable. LDL appropriate at 84. Patient also on ceftriaxone for possible UTI and patient was inquiring if her weakness may improve with this medication which I informed hher that generalized improvement in strength may occur with antibiotics, focal weakness more likely related to CVA low she seems to complain more of generalized weakness.. Active Medications Acetaminophen (Tylenol -) 650 mg PO Q6H PRN PRN Reason: PAIN LEVEL 7 - 10 Last Admin: 05/10/19 23:46 Dose: 650 mg Allopurinol (Zyloprim -) 300 mg PO DAILY [facility] Last Admin: 05/11/19 09:39 Dose: 300 mg Alprazolam (Xanax -) 0.5 mg PO BID PRN PRN Reason: ANXIETY Last Admin: 05/11/19 09:39 Dose: 0.5 mg Amlodipine Besylate (Norvasc -) 10 mg PO DAILY [facility] Last Admin: 05/11/19 09:39 Dose: 10 mg Aspirin (Ecotrin -) 81 mg PO DAILY [facility] Last Admin: 05/11/19 09:39 Dose: 81 mg Atorvastatin Calcium (Lipitor -) 40 mg PO HS [facility] Last Admin: 05/10/19 23:02 Dose: 40 mg Docusate Sodium (Colace -) 100 mg PO TID [facility] Last Admin: 05/11/19 07:10 Dose: 100 mg Enoxaparin Sodium (Lovenox -) 40 mg SQ DAILY [facility] Last Admin: 05/11/19 09:40 Dose: 40 mg Famotidine (Pepcid -) 20 mg PO DAILY [facility] Last Admin: 05/11/19 09:39 Dose: 20 mg Gabapentin (Neurontin -) 300 mg PO BID [facility] Last Admin: 05/11/19 09:39 Dose: 300 mg Ceftriaxone Sodium 1 gm/ (Dextrose) 50 mls @ 100 mls/hr IVPB DAILY [facility] Last Admin: 05/11/19 09:40 Dose: 100 mls/hr Metformin HCl (Glucophage -) 1,000 mg PO AM [facility] Last Admin: 05/11/19 07:11 Dose: 1,000 mg Sitagliptin Phosphate (Januvia -) 50 mg PO ACBK [facility] Last Admin: 05/11/19 07:11 Dose: 50 mg Zolpidem Tartrate (Ambien -) 5 mg PO HS PRN PRN Reason: INSOMNIA Last Admin: 05/10/19 23:08 Dose: 5 mg Physical Examination Vital Signs: Vital Signs Period Temp Pulse Resp BP Sys/Loredo Pulse Ox Last 24 Hr 97.7 F-99 F 74-97 20-24 136-158/63-91 98-98 Constitutional: Yes: Anxious, Obese Eyes: Yes: Conjunctiva Clear, EOM Intact HENT: Yes: Atraumatic, Normocephalic Neck: Yes: Supple, Trachea Midline Cardiovascular: Yes: Regular Rate and Rhythm Respiratory: Yes: CTA Bilaterally Gastrointestinal: Yes: Normal Bowel Sounds, Soft, Abdomen, Obese Renal/: Yes: WNL. No: CVA Tenderness - Left, CVA Tenderness - Right Musculoskeletal: Yes: Back Pain Edema: Yes Edema: LLE: 1+, RLE: 2+ Peripheral Pulses WNL: Yes Neurological: Yes: Oriented (x3), RUE 4-/5, RLE 5-/5, Sensory intact, gait antalgic, finger to nose intact Psychiatric: Yes: WNL Labs: CBCD WBC 10.4 K/mm3 (4.0-10.0) H 05/09/19 14:40 RBC 4.13 M/mm3 (3.60-5.2) 05/09/19 14:40 Hgb 10.7 GM/dL (10.7-15.3) 05/09/19 14:40 Hct 33.2 % (32.4-45.2) 05/09/19 14:40 MCV 80.5 fl (80-96) 05/09/19 14:40 MCHC 32.3 g/dl (32.0-36.0) 05/09/19 14:40 RDW 17.5 % (11.6-15.6) H 05/09/19 14:40 Plt Count 309 K/MM3 (134-434) 05/09/19 14:40 MPV 9.7 fl (7.5-11.1) 05/09/19 14:40 CMP Sodium 141 mmol/L (136-145) 05/09/19 14:40 Potassium 4.4 mmol/L (3.5-5.1) 05/09/19 14:40 Chloride 107 mmol/L (98-107) 05/09/19 14:40 Carbon Dioxide 25 mmol/L (21-32) 05/09/19 14:40 Anion Gap 10 MMOL/L (8-16) 05/09/19 14:40 BUN 22.9 mg/dL (7-18) H 05/09/19 14:40 Creatinine 1.3 mg/dL (0.55-1.3) 05/09/19 14:40 Random Glucose 151 mg/dL (74-106) H 05/09/19 14:40 Calcium 9.0 mg/dL (8.5-10.1) 05/09/19 14:40 Total Bilirubin 0.4 mg/dL (0.2-1) 05/09/19 14:40 AST 22 U/L (15-37) 05/09/19 14:40 ALT 17 U/L (13-61) 05/09/19 14:40 Alkaline Phosphatase 84 U/L (45-117) 05/09/19 14:40 Total Protein 6.7 g/dl (6.4-8.2) 05/09/19 14:40 Albumin 3.2 g/dl (3.4-5.0) L 05/09/19 14:40 CARDIAC ENZYMES Creatine Kinase 74 U/L (26-192) 05/09/19 14:40 Troponin I < 0.02 ng/ml (0.00-0.05) 05/09/19 14:40 Assessment/Plan 68 YOF with obesity, HTN, NIDDM, nephrolithiasis, gallstone, samreen en y gastric bypass (2002), recurrent UTI/E. coli urosepsis and bacteremia, obsructed stones c/b infection s/p lithotripsy and stenting (last performed on 05/01/[address] Reed) discharged earlier this month for urosepsis/infected ureteral stone on augmentin, which she was taking after UTI/obstructed stone s/p stenting. One week of abx inpatient, transitioned to augmentin x since 05/05/19, has two more doses left skipped on day of admission due to her doctor's recs due to the weakness. Ppresenting on day of admission with generalized weakness x 1 week, but worse beginning on the day before admission. +difficult walking, she noted her right upper arm was weaker and she could not lift it or get out of bed, beginning about late afternoon to "middle of the night" on day before admission. She was unable to provide an exact time but >12-24 hours before day of admission. She stated RLE pain and swelling, worse than left no fall or trauma. Denies fever, chills, chest pain, SOB, palpitation, dizziness, N, V, D, abdominal pain, bladder and bowel problems, paresthesias, leg swelling/pain, rash. Ct of head completed and demonstrated possible small subtle acute nonhemorrhagic infarct within the left frontal stinson radiata. Carotid ultrasound also performed and showed mild atherosclerotic plaque with no hemodinamically stenosis. Lower extremities venous doppler reviewed and showed no DVT identified. MRI brain ordered and awaiting completion. Explained to patient that CVA likely eitology to her weakness. She complains of pain and explained this is not likely from CVA. Was not taking ASA at home, advised ASA 81mg daily. Reports being on celebrex which I researched and dose of ASA > 325 would not be advised and 81mg ASA should be acceptable. Patient also on ceftriaxone for possible UTI and patient was inquiring if her weakness may improve with this medication which I informed hher that generalized improvement in strength may occur with antibiotics, focal weakness more likely related to CVA low she seems to complain more of generalized weakness.. MOnitor blood pressure, maintain normotensive range. PT/OT would be of benefit, short term rehab may be indicated. Fall precautions.
[2019-05-11] MEDS: ACETAMINOPHEN 325 MG TABLET (FP) PO PRN (13:07)
--- NOTE | 2019-05-11 14:37 | PN ---
Progress Note, Physician Chief Complaint: No new complaints - Current Medication List Current Medications: Active Medications Acetaminophen (Tylenol -) 650 mg PO Q6H PRN PRN Reason: PAIN LEVEL 7 - 10 Last Admin: 05/11/19 13:07 Dose: 650 mg Allopurinol (Zyloprim -) 300 mg PO DAILY [facility] Last Admin: 05/11/19 09:39 Dose: 300 mg Alprazolam (Xanax -) 0.5 mg PO BID PRN PRN Reason: ANXIETY Last Admin: 05/11/19 09:39 Dose: 0.5 mg Amlodipine Besylate (Norvasc -) 10 mg PO DAILY [facility] Last Admin: 05/11/19 09:39 Dose: 10 mg Aspirin (Ecotrin -) 81 mg PO DAILY [facility] Last Admin: 05/11/19 09:39 Dose: 81 mg Atorvastatin Calcium (Lipitor -) 40 mg PO HS [facility] Last Admin: 05/10/19 23:02 Dose: 40 mg Docusate Sodium (Colace -) 100 mg PO TID [facility] Last Admin: 05/11/19 13:08 Dose: Not Given Enoxaparin Sodium (Lovenox -) 40 mg SQ DAILY [facility] Last Admin: 05/11/19 09:40 Dose: 40 mg Famotidine (Pepcid -) 20 mg PO DAILY [facility] Last Admin: 05/11/19 09:39 Dose: 20 mg Gabapentin (Neurontin -) 300 mg PO BID [facility] Last Admin: 05/11/19 09:39 Dose: 300 mg Ceftriaxone Sodium 1 gm/ (Dextrose) 50 mls @ 100 mls/hr IVPB DAILY [facility] Last Admin: 05/11/19 09:40 Dose: 100 mls/hr Metformin HCl (Glucophage -) 1,000 mg PO AM [facility] Last Admin: 05/11/19 07:11 Dose: 1,000 mg Sitagliptin Phosphate (Januvia -) 50 mg PO ACBK [facility] Last Admin: 05/11/19 07:11 Dose: 50 mg Zolpidem Tartrate (Ambien -) 5 mg PO HS PRN PRN Reason: INSOMNIA Last Admin: 05/10/19 23:08 Dose: 5 mg - Objective Vital Signs: Vital Signs Temperature 99 F 05/11/19 09:38 Pulse Rate 88 05/11/19 09:38 Respiratory Rate 20 05/11/19 09:38 Blood Pressure 137/91 05/11/19 09:38 O2 Sat by Pulse Oximetry (%) 98 05/11/19 08:34 Constitutional: Yes: No Distress Neck: Yes: Supple Cardiovascular: Yes: Regular Rate and Rhythm, S1, S2 Respiratory: Yes: Regular, CTA Bilaterally Gastrointestinal: Yes: Normal Bowel Sounds, Soft Neurological: Yes: Alert, Oriented Labs: CBC, BMP 05/09/19 14:40 05/09/19 14:40 Problem List - Problems (1) CVA (cerebral vascular accident) Assessment/Plan: Improving Code(s): I63.9 - CEREBRAL INFARCTION, UNSPECIFIED Qualifiers: CVA mechanism: unspecified Qualified Code(s): I63.9 - Cerebral infarction, unspecified (2) UTI (urinary tract infection) Assessment/Plan: Ceftriaxone Code(s): N39.0 - URINARY TRACT INFECTION, SITE NOT SPECIFIED Qualifiers: Urinary tract infection type: site unspecified Hematuria presence: without hematuria Qualified Code(s): N39.0 - Urinary tract infection, site not specified
--- NOTE | 2019-05-11 17:39 | PN ---
Progress Note, Physician History of Present Illness: Pt states her RUE strength is improving slowly. Began having a dry cough this morning but no SOB and no other complaints. - Current Medication List Current Medications: Active Medications Acetaminophen (Tylenol -) 650 mg PO Q6H PRN PRN Reason: PAIN LEVEL 7 - 10 Last Admin: 05/11/19 13:07 Dose: 650 mg Allopurinol (Zyloprim -) 300 mg PO DAILY [facility] Last Admin: 05/11/19 09:39 Dose: 300 mg Alprazolam (Xanax -) 0.5 mg PO BID PRN PRN Reason: ANXIETY Last Admin: 05/11/19 09:39 Dose: 0.5 mg Amlodipine Besylate (Norvasc -) 10 mg PO DAILY [facility] Last Admin: 05/11/19 09:39 Dose: 10 mg Aspirin (Ecotrin -) 81 mg PO DAILY [facility] Last Admin: 05/11/19 09:39 Dose: 81 mg Atorvastatin Calcium (Lipitor -) 40 mg PO HS [facility] Last Admin: 05/10/19 23:02 Dose: 40 mg Docusate Sodium (Colace -) 100 mg PO TID [facility] Last Admin: 05/11/19 13:08 Dose: Not Given Enoxaparin Sodium (Lovenox -) 40 mg SQ DAILY [facility] Last Admin: 05/11/19 09:40 Dose: 40 mg Famotidine (Pepcid -) 20 mg PO DAILY [facility] Last Admin: 05/11/19 09:39 Dose: 20 mg Gabapentin (Neurontin -) 300 mg PO BID [facility] Last Admin: 05/11/19 09:39 Dose: 300 mg Ceftriaxone Sodium 1 gm/ (Dextrose) 50 mls @ 100 mls/hr IVPB DAILY [facility] Last Admin: 05/11/19 09:40 Dose: 100 mls/hr Metformin HCl (Glucophage -) 1,000 mg PO AM [facility] Last Admin: 05/11/19 07:11 Dose: 1,000 mg Sitagliptin Phosphate (Januvia -) 50 mg PO ACBK [facility] Last Admin: 05/11/19 07:11 Dose: 50 mg Zolpidem Tartrate (Ambien -) 5 mg PO HS PRN PRN Reason: INSOMNIA Last Admin: 05/10/19 23:08 Dose: 5 mg - Objective Vital Signs: Vital Signs Temperature 99.2 F 05/11/19 15:05 Pulse Rate 87 05/11/19 15:05 Respiratory Rate 22 H 05/11/19 15:05 Blood Pressure 138/66 05/11/19 15:05 O2 Sat by Pulse Oximetry (%) 98 05/11/19 08:34 Constitutional: Yes: No Distress, Calm Cardiovascular: Yes: Regular Rate and Rhythm Respiratory: Yes: CTA Bilaterally Gastrointestinal: Yes: Normal Bowel Sounds, Soft, Abdomen, Obese Genitourinary: Yes: WNL Musculoskeletal: Yes: Muscle Weakness (RUE) Integumentary: Yes: WNL Neurological: Yes: Alert, Oriented Labs: CBC, BMP 05/09/19 14:40 05/09/19 14:40 Microbiology 05/09/19 14:52 Urine - Urine Clean Catch Urine Culture - Final NO GROWTH OBTAINED Problem List - Problems (1) CVA (cerebral vascular accident) Code(s): I63.9 - CEREBRAL INFARCTION, UNSPECIFIED Qualifiers: CVA mechanism: unspecified Qualified Code(s): I63.9 - Cerebral infarction, unspecified (2) UTI (urinary tract infection) Code(s): N39.0 - URINARY TRACT INFECTION, SITE NOT SPECIFIED Qualifiers: Urinary tract infection type: site unspecified Hematuria presence: without hematuria Qualified Code(s): N39.0 - Urinary tract infection, site not specified (3) Diabetes mellitus Code(s): E11.9 - TYPE 2 DIABETES MELLITUS WITHOUT COMPLICATIONS Qualifiers: Diabetes mellitus type: type 2 Diabetes mellitus bed bug exterminator insulin use: without correction use Diabetes mellitus complication status: with other specified complication Qualified Code(s): E11.69 - Type 2 diabetes mellitus with other specified complication (4) Hypertension Code(s): I10 - ESSENTIAL (PRIMARY) HYPERTENSION Qualifiers: Hypertension type: essential hypertension Qualified Code(s): I10 - Essential (primary) hypertension (5) Obesity Code(s): E66.9 - OBESITY, UNSPECIFIED Qualifiers: Obesity type: due to excess calories Body mass index: BMI 50.0-59.9 (6) Renal calculi Code(s): N20.0 - CALCULUS OF KIDNEY (7) T2DM (type 2 diabetes mellitus) Code(s): E11.9 - TYPE 2 DIABETES MELLITUS WITHOUT COMPLICATIONS Qualifiers: Diabetes mellitus bed bug exterminator insulin use: without bed bug exterminator use Diabetes mellitus complication status: with neurologic complications Diabetes mellitus complication detail: with other neurological complication Qualified Code(s): E11.49 - Type 2 diabetes mellitus with other diabetic neurological complication Assessment/Plan 68 y.o. female with PMH of DM, obesity s/p gastric bypass, HTN, recurrent UTIs, and nephrolithiasis s/p lithotripsy and stent placement on 05/01/19 presents with c/o worsening RUE/RLE weakness over the past week. Has been on antibiotics for a UTI since last admission. Acute CVA UTI Nephrolithiasis s/p lithotripsy/stent DM Obese HTN -- has now completed course of antibiotics, repeat urine culture negative. Will d/c Ceftriaxone. -- monitor off antibiotics -- Neurology following
[2019-05-11] MEDS: ATORVASTATIN CA 40 MG TABLET (FP) PO SCH (22:22)
[2019-05-11] MEDS: ZOLPIDEM TARTRATE 5 MG TABLET PO PRN (22:23)
[2019-05-11] MEDS: guaiFENesin/D-METHORPHAN HB 10 ML UNIT-DOSE CUPS PO PRN (22:42)
[2019-05-11] MEDS ORDERED: PT OWN MED DRAWER 7, Y5N ONE (22:53)
[2019-05-12] MEDS: guaiFENesin/D-METHORPHAN HB 10 ML UNIT-DOSE CUPS PO PRN ×2 (04:44→22:46)
[2019-05-12] MEDS: metFORMIN HCL 500 MG TABLET (FP) PO SCH (06:01)
[2019-05-12] MEDS: sitaGLIPtin PHOSPHATE 50 MG TABLET PO SCH (06:01)
[2019-05-12] MEDS: ACETAMINOPHEN 325 MG TABLET (FP) PO PRN ×3 (06:01→18:49)
[2019-05-12] MEDS: DOCUSATE SODIUM 100 MG CAPSULE (FP) PO SCH ×3 (06:01→22:32)
[2019-05-12] MEDS ORDERED: DEXTROSE 5%-WATER - 50 ML IVPB ONE (09:10)
[2019-05-12] MEDS ORDERED: cefTRIAXone SODIUM 1 GM VIAL ONE (09:10)
[2019-05-12] MEDS: CEFTRIAXONE 1 GM in DEXTROSE 5%-WATER - 50 ML IVPB SCH (09:19)
[2019-05-12] MEDS: ALLOPURINOL 300 MG TABLET (FP) PO SCH (09:20)
[2019-05-12] MEDS: amLODIPine BESYLATE 10 MG TABLET (FP) PO SCH (09:20)
[2019-05-12] MEDS: ASPIRIN COATED 81 MG TABLET.EC PO SCH (09:20)
[2019-05-12] MEDS: ENOXAPARIN NA (PORCINE) 40 MG/0.4 ML DISP.SYRIN SQ SCH (09:20)
[2019-05-12] MEDS: GABAPENTIN 300 MG CAPSULE PO SCH ×2 (09:20→22:33)
[2019-05-12] MEDS: FAMOTIDINE 20 MG TABLET PO SCH (09:20)
--- NOTE | 2019-05-12 11:06 | PN ---
Progress Note (short form) - Note Progress Note: Neurology - Primary Care Physician PCP: Amaris Rosales - Admission Chief Complaint: generalized weakness, and right arm weakness History of Present Illness: 68 YOF with obesity, HTN, NIDDM, nephrolithiasis, gallstone, samreen en y gastric bypass (2002), recurrent UTI/E. coli urosepsis and bacteremia, obsructed stones c/b infection s/p lithotripsy and stenting (last performed on 05/01/[address] Reed) discharged earlier this month for urosepsis/infected ureteral stone on augmentin, which she was taking after UTI/obstructed stone s/p stenting. One week of abx inpatient, transitioned to augmentin x since 05/05/19, has two more doses left skipped on day of admission due to her doctor's recs due to the weakness. Presenting on day of admission with generalized weakness x 1 week, but worse beginning on the day before admission. +difficult walking, she noted her right upper arm was weaker and she could not lift it or get out of bed, beginning about late afternoon to "middle of the night" on day before admission. She was unable to provide an exact time but >12-24 hours before day of admission. She stated RLE pain and swelling, worse than left no fall or trauma. Denies fever, chills, chest pain, SOB, palpitation, dizziness, N, V, D, abdominal pain, bladder and bowel problems, paresthesias, leg swelling/pain, rash. Ct of head completed and demonstrated possible small subtle acute nonhemorrhagic infarct within the left frontal stinson radiata. Carotid ultrasound also performed and showed mild atherosclerotic plaque with no hemodinamically stenosis. Lower extremities venous doppler reviewed and showed no DVT identified. MRI brain ordered and awaiting completion, patient reports having rods and therefore MRI may not be feasible. Explained to patient that CVA likely eitology to her weakness. She complains of pain and explained this is not likely from CVA. Was not taking ASA at home, advised ASA 81mg daily. Reports being on celebrex which I researched and dose of ASA > 325 would not be advised and 81mg ASA should be acceptable. LDL appropriate at 84. Patient also on ceftriaxone for possible UTI and patient was inquiring if her weakness may improve with this medication which I informed hher that generalized improvement in strength may occur with antibiotics, she seems to complain more of generalized weakness rather than focal. [facility] and c /o fevers overnight, likely from underlying infection that is still being treated. Active Medications Acetaminophen (Tylenol -) 650 mg PO Q6H PRN PRN Reason: PAIN LEVEL 7 - 10 Last Admin: 05/12/19 06:01 Dose: 650 mg Allopurinol (Zyloprim -) 300 mg PO DAILY [facility] Last Admin: 05/12/19 09:20 Dose: 300 mg Alprazolam (Xanax -) 0.5 mg PO BID PRN PRN Reason: ANXIETY Last Admin: 05/11/19 22:23 Dose: 0.5 mg Amlodipine Besylate (Norvasc -) 10 mg PO DAILY [facility] Last Admin: 05/12/19 09:20 Dose: 10 mg Aspirin (Ecotrin -) 81 mg PO DAILY [facility] Last Admin: 05/12/19 09:20 Dose: 81 mg Atorvastatin Calcium (Lipitor -) 40 mg PO HS [facility] Last Admin: 05/11/19 22:22 Dose: 40 mg Docusate Sodium (Colace -) 100 mg PO TID [facility] Last Admin: 05/12/19 06:01 Dose: 100 mg Enoxaparin Sodium (Lovenox -) 40 mg SQ DAILY [facility] Last Admin: 05/12/19 09:20 Dose: 40 mg Famotidine (Pepcid -) 20 mg PO DAILY [facility] Last Admin: 05/12/19 09:20 Dose: 20 mg Gabapentin (Neurontin -) 300 mg PO BID [facility] Last Admin: 05/12/19 09:20 Dose: 300 mg Guaifenesin (Robitussin Dm -) 10 ml PO Q6H PRN PRN Reason: COUGH Last Admin: 05/12/19 04:44 Dose: 10 ml Ceftriaxone Sodium 1 gm/ (Dextrose) 50 mls @ 100 mls/hr IVPB DAILY [facility] Last Admin: 05/12/19 09:19 Dose: 100 mls/hr Metformin HCl (Glucophage -) 1,000 mg PO AM [facility] Last Admin: 05/12/19 06:01 Dose: 1,000 mg Sitagliptin Phosphate (Januvia -) 50 mg PO ACBK [facility] Last Admin: 05/12/19 06:01 Dose: 50 mg Zolpidem Tartrate (Ambien -) 5 mg PO HS PRN PRN Reason: INSOMNIA Last Admin: 05/11/19 22:23 Dose: 5 mg Physical Examination Vital Signs: Vital Signs Period Temp Pulse Resp BP Sys/Loredo Pulse Ox Last 24 Hr 98.2 F-101.6 F 84-98 20-22 131-152/55-89 95-96 Constitutional: Yes: Anxious, Obese Eyes: Yes: Conjunctiva Clear, EOM Intact HENT: Yes: Atraumatic, Normocephalic Neck: Yes: Supple, Trachea Midline Cardiovascular: Yes: Regular Rate and Rhythm Respiratory: Yes: CTA Bilaterally Gastrointestinal: Yes: Normal Bowel Sounds, Soft, Abdomen, Obese Renal/: Yes: WNL. No: CVA Tenderness - Left, CVA Tenderness - Right Musculoskeletal: Yes: Back Pain Edema: Yes Edema: LLE: 1+, RLE: 2+ Peripheral Pulses WNL: Yes Neurological: Yes: Oriented (x3), RUE 4-/5, RLE 5-/5, Sensory intact, gait antalgic, finger to nose intact Psychiatric: Yes: WNL Labs: CBCD WBC 10.4 K/mm3 (4.0-10.0) H 05/09/19 14:40 RBC 4.13 M/mm3 (3.60-5.2) 05/09/19 14:40 Hgb 10.7 GM/dL (10.7-15.3) 05/09/19 14:40 Hct 33.2 % (32.4-45.2) 05/09/19 14:40 MCV 80.5 fl (80-96) 05/09/19 14:40 MCHC 32.3 g/dl (32.0-36.0) 05/09/19 14:40 RDW 17.5 % (11.6-15.6) H 05/09/19 14:40 Plt Count 309 K/MM3 (134-434) 05/09/19 14:40 MPV 9.7 fl (7.5-11.1) 05/09/19 14:40 CMP Sodium 141 mmol/L (136-145) 05/09/19 14:40 Potassium 4.4 mmol/L (3.5-5.1) 05/09/19 14:40 Chloride 107 mmol/L (98-107) 05/09/19 14:40 Carbon Dioxide 25 mmol/L (21-32) 05/09/19 14:40 Anion Gap 10 MMOL/L (8-16) 05/09/19 14:40 BUN 22.9 mg/dL (7-18) H 05/09/19 14:40 Creatinine 1.3 mg/dL (0.55-1.3) 05/09/19 14:40 Random Glucose 151 mg/dL (74-106) H 05/09/19 14:40 Calcium 9.0 mg/dL (8.5-10.1) 05/09/19 14:40 Total Bilirubin 0.4 mg/dL (0.2-1) 05/09/19 14:40 AST 22 U/L (15-37) 05/09/19 14:40 ALT 17 U/L (13-61) 05/09/19 14:40 Alkaline Phosphatase 84 U/L (45-117) 05/09/19 14:40 Total Protein 6.7 g/dl (6.4-8.2) 05/09/19 14:40 Albumin 3.2 g/dl (3.4-5.0) L 05/09/19 14:40 CARDIAC ENZYMES Creatine Kinase 74 U/L (26-192) 05/09/19 14:40 Troponin I < 0.02 ng/ml (0.00-0.05) 05/09/19 14:40 Assessment/Plan 68 YOF with obesity, HTN, NIDDM, nephrolithiasis, gallstone, samreen en y gastric bypass (2002), recurrent UTI/E. coli urosepsis and bacteremia, obsructed stones c/b infection s/p lithotripsy and stenting (last performed on 05/01/[address] Reed) discharged earlier this month for urosepsis/infected ureteral stone on augmentin, which she was taking after UTI/obstructed stone s/p stenting. One week of abx inpatient, transitioned to augmentin x since 05/05/19, has two more doses left skipped on day of admission due to her doctor's recs due to the weakness. Ppresenting on day of admission with generalized weakness x 1 week, but worse beginning on the day before admission. +difficult walking, she noted her right upper arm was weaker and she could not lift it or get out of bed, beginning about late afternoon to "middle of the night" on day before admission. She was unable to provide an exact time but >12-24 hours before day of admission. She stated RLE pain and swelling, worse than left no fall or trauma. Denies fever, chills, chest pain, SOB, palpitation, dizziness, N, V, D, abdominal pain, bladder and bowel problems, paresthesias, leg swelling/pain, rash. Ct of head completed and demonstrated possible small subtle acute nonhemorrhagic infarct within the left frontal stinson radiata. Carotid ultrasound also performed and showed mild atherosclerotic plaque with no hemodinamically stenosis. Lower extremities venous doppler reviewed and showed no DVT identified. MRI brain ordered and awaiting completion. Explained to patient that CVA likely eitology to her weakness. She complains of pain and explained this is not likely from CVA. Was not taking ASA at home, advised ASA 81mg daily. Reports being on celebrex which I researched and dose of ASA > 325 would not be advised and 81mg ASA should be acceptable. Patient also on ceftriaxone for possible UTI and patient was inquiring if her weakness may improve with this medication which I informed hher that generalized improvement in strength may occur with antibiotics, she seems to complain more of generalized weakness rather than focal. Seen in [facility] today with family and c /o fevers overnight, likely from underlying infection that is still being treated. MOnitor blood pressure, maintain normotensive range. PT/OT would be of benefit, short term rehab may be indicated. Fall precautions.
--- NOTE | 2019-05-12 15:25 | PN ---
Progress Note, Physician History of Present Illness: patient spiking fever coughing greenish sputum production - Current Medication List Current Medications: Active Medications Acetaminophen (Tylenol -) 650 mg PO Q6H PRN PRN Reason: PAIN LEVEL 7 - 10 Last Admin: 05/12/19 12:45 Dose: 650 mg Allopurinol (Zyloprim -) 300 mg PO DAILY [facility] Last Admin: 05/12/19 09:20 Dose: 300 mg Alprazolam (Xanax -) 0.5 mg PO BID PRN PRN Reason: ANXIETY Last Admin: 05/11/19 22:23 Dose: 0.5 mg Amlodipine Besylate (Norvasc -) 10 mg PO DAILY [facility] Last Admin: 05/12/19 09:20 Dose: 10 mg Aspirin (Ecotrin -) 81 mg PO DAILY [facility] Last Admin: 05/12/19 09:20 Dose: 81 mg Atorvastatin Calcium (Lipitor -) 40 mg PO HS [facility] Last Admin: 05/11/19 22:22 Dose: 40 mg Docusate Sodium (Colace -) 100 mg PO TID [facility] Last Admin: 05/12/19 14:18 Dose: 100 mg Enoxaparin Sodium (Lovenox -) 40 mg SQ DAILY [facility] Last Admin: 05/12/19 09:20 Dose: 40 mg Famotidine (Pepcid -) 20 mg PO DAILY [facility] Last Admin: 05/12/19 09:20 Dose: 20 mg Gabapentin (Neurontin -) 300 mg PO BID [facility] Last Admin: 05/12/19 09:20 Dose: 300 mg Guaifenesin (Robitussin Dm -) 10 ml PO Q6H PRN PRN Reason: COUGH Last Admin: 05/12/19 04:44 Dose: 10 ml Cefepime HCl (Maxipime 1 Gm Premix Ivpb) 1 gm in 50 mls @ 100 mls/hr IVPB Q8H- IV [facility]; Protocol Metformin HCl (Glucophage -) 1,000 mg PO AM [facility] Last Admin: 05/12/19 06:01 Dose: 1,000 mg Sitagliptin Phosphate (Januvia -) 50 mg PO ACBK [facility] Last Admin: 05/12/19 06:01 Dose: 50 mg Zolpidem Tartrate (Ambien -) 5 mg PO HS PRN PRN Reason: INSOMNIA Last Admin: 01/19/20 22:23 Dose: 5 mg - Objective Vital Signs: Vital Signs Temperature 99.3 F 05/12/19 14:41 Pulse Rate 100 H 05/12/19 14:41 Respiratory Rate 18 05/12/19 14:41 Blood Pressure 163/71 05/12/19 14:41 O2 Sat by Pulse Oximetry (%) 95 05/12/19 09:00 Constitutional: Yes: Calm, Mild Distress Neck: Yes: Supple, Trachea Midline Cardiovascular: Yes: Regular Rate and Rhythm Respiratory: Yes: Regular, CTA Bilaterally Gastrointestinal: Yes: Normal Bowel Sounds, Soft Musculoskeletal: Yes: WNL Extremities: Yes: WNL Neurological: Yes: Alert, Oriented Psychiatric: Yes: Alert, Oriented Labs: CBC, BMP 05/09/19 14:40 05/09/19 14:40 Assessment/Plan Problem List - Problems (1) CVA (cerebral vascular accident) Code(s): I63.9 - CEREBRAL INFARCTION, UNSPECIFIED Qualifiers: CVA mechanism: unspecified Qualified Code(s): I63.9 - Cerebral infarction, unspecified (2) UTI (urinary tract infection) Code(s): N39.0 - URINARY TRACT INFECTION, SITE NOT SPECIFIED Qualifiers: Urinary tract infection type: site unspecified Hematuria presence: without hematuria Qualified Code(s): N39.0 - Urinary tract infection, site not specified (3) Diabetes mellitus Code(s): E11.9 - TYPE 2 DIABETES MELLITUS WITHOUT COMPLICATIONS Qualifiers: Diabetes mellitus type: type 2 Diabetes mellitus shipyard painter insulin use: without mcfp use Diabetes mellitus complication status: with other specified complication Qualified Code(s): E11.69 - Type 2 diabetes mellitus with other specified complication (4) Hypertension Code(s): I10 - ESSENTIAL (PRIMARY) HYPERTENSION Qualifiers: Hypertension type: essential hypertension Qualified Code(s): I10 - Essential (primary) hypertension (5) Obesity Code(s): E66.9 - OBESITY, UNSPECIFIED Qualifiers: Obesity type: due to excess calories Body mass index: BMI 50.0-59.9 (6) Renal calculi Code(s): N20.0 - CALCULUS OF KIDNEY (7) T2DM (type 2 diabetes mellitus) Code(s): E11.9 - TYPE 2 DIABETES MELLITUS WITHOUT COMPLICATIONS Qualifiers: Diabetes mellitus mcfp insulin use: without shipyard painter use Diabetes mellitus complication status: with neurologic complications Diabetes mellitus complication detail: with other neurological complication Qualified Code(s): E11.49 - Type 2 diabetes mellitus with other diabetic neurological complication plan patient contines to spike fever inspite of ceftriaxone also producing greenish sputum i am going to sop ceftriaxone and start her on cefepime will see how she does close watch res as per the team
[2019-05-12] MEDS ORDERED: CEFEPIME 1 GM in DEXTROSE 5%-WATER 100 ML IVPB SCH (15:30)
[2019-05-12] MEDS ORDERED: CEFEPIME HCL 1 GM VIAL (RESTRICTED TO ID) ONE (16:12)
[2019-05-12] MEDS ORDERED: DEXTROSE 5%-WATER 100 ML IVPB ONE (16:13)
--- NOTE | 2019-05-12 16:58 | PN ---
Progress Note (short form) - Note Progress Note: admitted for acute CVA again febrile, with chills, and cough with productive sputum CBC, BMP 05/09/19 14:40 05/09/19 14:40 Vital Signs Period Temp Pulse Resp BP Sys/Loredo Pulse Ox Last 24 Hr 98.2 F-101.8 F 88-100 18-22 141-163/64-89 95-96 s1s2 rrr lungs cta abd soft nt tr edema aaox3, mild right upper ext. weaknees, chr. right foot drop acute left frontal stinson radiata CVA morbid obesity NIDDM HTN fever-sp lithotrispsy known renal colic fever- r/o pneumonia repeat BCx, check cxr iv abx as per id awaiting pt ev;la regarding dc planning urplogy f/up for stent removal Problem List - Problems (1) CVA (cerebral vascular accident) Code(s): I63.9 - CEREBRAL INFARCTION, UNSPECIFIED Qualifiers: CVA mechanism: unspecified Qualified Code(s): I63.9 - Cerebral infarction, unspecified (2) UTI (urinary tract infection) Code(s): N39.0 - URINARY TRACT INFECTION, SITE NOT SPECIFIED Qualifiers: Urinary tract infection type: site unspecified Hematuria presence: without hematuria Qualified Code(s): N39.0 - Urinary tract infection, site not specified (3) Diabetes mellitus Code(s): E11.9 - TYPE 2 DIABETES MELLITUS WITHOUT COMPLICATIONS Qualifiers: Diabetes mellitus type: type 2 Diabetes mellitus shelter insulin use: without termite helper use Diabetes mellitus complication status: with other specified complication Qualified Code(s): E11.69 - Type 2 diabetes mellitus with other specified complication (4) Hypertension Code(s): I10 - ESSENTIAL (PRIMARY) HYPERTENSION Qualifiers: Hypertension type: essential hypertension Qualified Code(s): I10 - Essential (primary) hypertension (5) Obesity Code(s): E66.9 - OBESITY, UNSPECIFIED Qualifiers: Obesity type: due to excess calories Body mass index: BMI 50.0-59.9 (6) T2DM (type 2 diabetes mellitus) Code(s): E11.9 - TYPE 2 DIABETES MELLITUS WITHOUT COMPLICATIONS Qualifiers: Diabetes mellitus shelter insulin use: without shelter use Diabetes mellitus complication status: with neurologic complications Diabetes mellitus complication detail: with other neurological complication Qualified Code(s): E11.49 - Type 2 diabetes mellitus with other diabetic neurological complication
[2019-05-12] MEDS: CEFEPIME 1 GM in DEXTROSE 5%-WATER 100 ML IVPB SCH ×2 (18:49→21:38)
[2019-05-12] MEDS: ATORVASTATIN CA 40 MG TABLET (FP) PO SCH (22:33)
[2019-05-13] MEDS: ZOLPIDEM TARTRATE 5 MG TABLET PO PRN ×2 (00:42→22:55)
[2019-05-13] MEDS ORDERED: DEXTROSE 5%-WATER 100 ML IVPB ONE ×3 (01:00→17:21)
[2019-05-13] MEDS ORDERED: CEFEPIME HCL 1 GM VIAL (RESTRICTED TO ID) ONE ×3 (01:00→17:21)
[2019-05-13] MEDS: CEFEPIME 1 GM in DEXTROSE 5%-WATER 100 ML IVPB SCH ×3 (01:37→18:03)
[2019-05-13] MEDS: ACETAMINOPHEN 325 MG TABLET (FP) PO PRN ×3 (03:20→21:34)
[2019-05-13] MEDS: DOCUSATE SODIUM 100 MG CAPSULE (FP) PO SCH (05:59)
[2019-05-13] MEDS: metFORMIN HCL 500 MG TABLET (FP) PO SCH (05:59)
[2019-05-13] MEDS: sitaGLIPtin PHOSPHATE 50 MG TABLET PO SCH (05:59)
[2019-05-13 07:19] LABS: BASO % 0.8 % (0-2.0); EOS % 0.8 % (0-4.5); HEMATOCRIT 30.3 % (32.4-45.2); HEMOGLOBIN 9.8 GM/dL (10.7-15.3); LYMPH % 12.2 % (8-40); MCH 25.7 pg (25.7-33.7); MCHC 32.3 g/dl (32.0-36.0); MEAN CELL VOLUME 79.6 fl (80-96); MEAN PLT VOLUME 9.2 fl (7.5-11.1); MONO % 21.1 % (3.8-10.2); NEUT % 65.1 % (42.8-82.8); PLATELET COUNT 283 K/MM3 (134-434); RBC 3.81 M/mm3 (3.60-5.2); RDW 16.8 % (11.6-15.6); WHITE BLOOD COUNT 5.9 K/mm3 (4.0-10.0)
[2019-05-13 07:49] LABS: BILIRUBIN,TOTAL 0.6 mg/dL (0.2-1); BLOOD UREA NITROGEN 17.8 mg/dL (7-18); CALCIUM 8.4 mg/dL (8.5-10.1); CREATININE 1.4 mg/dL (0.55-1.3); POTASSIUM 3.8 mmol/L (3.5-5.1)
--- NOTE | 2019-05-13 09:06 | PN ---
Progress Note (short form) - Note Progress Note: Neurology - Primary Care Physician PCP: Amaris Rosales - Admission Chief Complaint: generalized weakness, and right arm weakness History of Present Illness: 68 YOF with obesity, HTN, NIDDM, nephrolithiasis, gallstone, samreen en y gastric bypass (2002), recurrent UTI/E. coli urosepsis and bacteremia, obsructed stones c/b infection s/p lithotripsy and stenting (last performed on 05/01/[address] Reed) discharged earlier this month for urosepsis/infected ureteral stone on augmentin, which she was taking after UTI/obstructed stone s/p stenting. One week of abx inpatient, transitioned to augmentin x since 05/05/19, has two more doses left skipped on day of admission due to her doctor's recs due to the weakness. Presenting on day of admission with generalized weakness x 1 week, but worse beginning on the day before admission. +difficult walking, she noted her right upper arm was weaker and she could not lift it or get out of bed, beginning about late afternoon to "middle of the night" on day before admission. She was unable to provide an exact time but >12-24 hours before day of admission. She stated RLE pain and swelling, worse than left no fall or trauma. Denies fever, chills, chest pain, SOB, palpitation, dizziness, N, V, D, abdominal pain, bladder and bowel problems, paresthesias, leg swelling/pain, rash. Ct of head completed and demonstrated possible small subtle acute nonhemorrhagic infarct within the left frontal stinson radiata. Carotid ultrasound also performed and showed mild atherosclerotic plaque with no hemodinamically stenosis. Lower extremities venous doppler reviewed and showed no DVT identified. MRI brain ordered and awaiting completion, patient reports having rods and therefore MRI may not be feasible. Explained to patient that CVA likely eitology to her weakness. She complains of pain and explained this is not likely from CVA. Was not taking ASA at home, advised ASA 81mg daily. Reports being on celebrex which I researched and dose of ASA > 325 would not be advised and 81mg ASA should be acceptable. LDL appropriate at 84. Patient also on ceftriaxone for possible UTI and patient was inquiring if her weakness may improve with this medication which I informed hher that generalized improvement in strength may occur with antibiotics, she seems to complain more of generalized weakness rather than focal. 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 Possibly time for discharge planning, we'll defer to primary care physician as well as telephonic case manager. Active Medications Acetaminophen (Tylenol -) 650 mg PO Q6H PRN PRN Reason: PAIN LEVEL 7 - 10 Last Admin: 05/13/19 03:20 Dose: 650 mg Allopurinol (Zyloprim -) 300 mg PO DAILY [facility] Last Admin: 05/12/19 09:20 Dose: 300 mg Alprazolam (Xanax -) 0.5 mg PO BID PRN PRN Reason: ANXIETY Last Admin: 05/11/19 22:23 Dose: 0.5 mg Amlodipine Besylate (Norvasc -) 10 mg PO DAILY [facility] Last Admin: 05/12/19 09:20 Dose: 10 mg Aspirin (Ecotrin -) 81 mg PO DAILY [facility] Last Admin: 05/12/19 09:20 Dose: 81 mg Atorvastatin Calcium (Lipitor -) 40 mg PO HS [facility] Last Admin: 05/12/19 22:33 Dose: 40 mg Docusate Sodium (Colace -) 100 mg PO TID [facility] Last Admin: 05/13/19 05:59 Dose: 100 mg Enoxaparin Sodium (Lovenox -) 40 mg SQ DAILY [facility] Last Admin: 05/12/19 09:20 Dose: 40 mg Famotidine (Pepcid -) 20 mg PO DAILY [facility] Last Admin: 05/12/19 09:20 Dose: 20 mg Gabapentin (Neurontin -) 300 mg PO BID [facility] Last Admin: 05/12/19 22:33 Dose: 300 mg Guaifenesin (Robitussin Dm -) 10 ml PO Q6H PRN PRN Reason: COUGH Last Admin: 05/12/19 22:46 Dose: 10 ml Cefepime HCl 1 gm/ Dextrose 100 mls @ 100 mls/hr IVPB Q8H-IV [facility]; Protocol Last Admin: 05/13/19 01:37 Dose: 100 mls/hr Metformin HCl (Glucophage -) 1,000 mg PO AM [facility] Last Admin: 05/13/19 05:59 Dose: 1,000 mg Sitagliptin Phosphate (Januvia -) 50 mg PO ACBK [facility] Last Admin: 05/13/19 05:59 Dose: 50 mg Zolpidem Tartrate (Ambien -) 5 mg PO HS PRN PRN Reason: INSOMNIA Last Admin: 05/13/19 00:42 Dose: 5 mg Physical Examination Vital Signs: Vital Signs Period Temp Pulse Resp BP Sys/Loredo Pulse Ox Last 24 Hr 98.5 F-101.8 F 76-100 18-22 129-163/58-89 94 Constitutional: Yes: Anxious, Obese Eyes: Yes: Conjunctiva Clear, EOM Intact HENT: Yes: Atraumatic, Normocephalic Neck: Yes: Supple, Trachea Midline Cardiovascular: Yes: Regular Rate and Rhythm Respiratory: Yes: CTA Bilaterally Gastrointestinal: Yes: Normal Bowel Sounds, Soft, Abdomen, Obese Renal/: Yes: WNL. No: CVA Tenderness - Left, CVA Tenderness - Right Musculoskeletal: Yes: Back Pain Edema: Yes Edema: LLE: 1+, RLE: 2+ Peripheral Pulses WNL: Yes Neurological: Yes: Oriented (x3), RUE 5-/5, RLE 5-/5, Sensory intact, gait antalgic, finger to nose intact Psychiatric: Yes: WNL Labs: CBCD WBC 5.9 K/mm3 (4.0-10.0) 05/13/19 06:35 RBC 3.81 M/mm3 (3.60-5.2) 05/13/19 06:35 Hgb 9.8 GM/dL (10.7-15.3) L 05/13/19 06:35 Hct 30.3 % (32.4-45.2) L 05/13/19 06:35 MCV 79.6 fl (80-96) L 05/13/19 06:35 MCHC 32.3 g/dl (32.0-36.0) 05/13/19 06:35 RDW 16.8 % (11.6-15.6) H 05/13/19 06:35 Plt Count 283 K/MM3 (134-434) 05/13/19 06:35 MPV 9.2 fl (7.5-11.1) 05/13/19 06:35 CMP Sodium 137 mmol/L (136-145) 05/13/19 06:35 Potassium 3.8 mmol/L (3.5-5.1) 05/13/19 06:35 Chloride 104 mmol/L (98-107) 05/13/19 06:35 Carbon Dioxide 26 mmol/L (21-32) 05/13/19 06:35 Anion Gap 8 MMOL/L (8-16) 05/13/19 06:35 BUN 17.8 mg/dL (7-18) 05/13/19 06:35 Creatinine 1.4 mg/dL (0.55-1.3) H 05/13/19 06:35 Random Glucose 141 mg/dL (74-106) H 05/13/19 06:35 Calcium 8.4 mg/dL (8.5-10.1) L 05/13/19 06:35 Total Bilirubin 0.6 mg/dL (0.2-1) 05/13/19 06:35 AST 27 U/L (15-37) 05/13/19 06:35 ALT 24 U/L (13-61) 05/13/19 06:35 Alkaline Phosphatase 70 U/L (45-117) 05/13/19 06:35 Total Protein 6.0 g/dl (6.4-8.2) L 05/13/19 06:35 Albumin 3.0 g/dl (3.4-5.0) L 05/13/19 06:35 CARDIAC ENZYMES Creatine Kinase 74 U/L (26-192) 05/09/19 14:40 Troponin I < 0.02 ng/ml (0.00-0.05) 05/09/19 14:40 Assessment/Plan 68 YOF with obesity, HTN, NIDDM, nephrolithiasis, gallstone, samreen en y gastric bypass (2002), recurrent UTI/E. coli urosepsis and bacteremia, obsructed stones c/b infection s/p lithotripsy and stenting (last performed on 05/01/[address] Reed) discharged earlier this month for urosepsis/infected ureteral stone on augmentin, which she was taking after UTI/obstructed stone s/p stenting. One week of abx inpatient, transitioned to augmentin x since 05/05/19, has two more doses left skipped on day of admission due to her doctor's recs due to the weakness. Ppresenting on day of admission with generalized weakness x 1 week, but worse beginning on the day before admission. +difficult walking, she noted her right upper arm was weaker and she could not lift it or get out of bed, beginning about late afternoon to "middle of the night" on day before admission. She was unable to provide an exact time but >12-24 hours before day of admission. She stated RLE pain and swelling, worse than left no fall or trauma. Denies fever, chills, chest pain, SOB, palpitation, dizziness, N, V, D, abdominal pain, bladder and bowel problems, paresthesias, leg swelling/pain, rash. Ct of head completed and demonstrated possible small subtle acute nonhemorrhagic infarct within the left frontal stinson radiata. Carotid ultrasound also performed and showed mild atherosclerotic plaque with no hemodinamically stenosis. Lower extremities venous doppler reviewed and showed no DVT identified. MRI brain ordered and awaiting completion. Explained to patient that CVA likely eitology to her weakness. She complains of pain and explained this is not likely from CVA. Was not taking ASA at home, advised ASA 81mg daily. Reports being on celebrex which I researched and dose of ASA > 325 would not be advised and 81mg ASA should be acceptable. Patient also on ceftriaxone for possible UTI and patient was inquiring if her weakness may improve with this medication which I informed hher that generalized improvement in strength may occur with antibiotics, she seems to complain more of generalized weakness rather than focal. 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 Possibly time for discharge planning, we'll defer to primary care physician as well as telephonic case manager. MOnitor blood pressure, maintain normotensive range. PT/OT would be of benefit, short term rehab may be indicated, though outpatient physical therapy may also be sufficient. Fall precautions. Should follow up with me in office as outpatient in 2-4 weeks.
--- NOTE | 2019-05-13 09:11 | PN ---
Progress Note (short form) - Note Progress Note: admitted for acute CVA CBC, BMP 05/13/19 06:35 05/13/19 06:35 Vital Signs Period Temp Pulse Resp BP Sys/Loredo Pulse Ox Last 24 Hr 98.5 F-101.8 F 76-100 18-22 129-163/58-89 94 afebrile since last night, but has a cough s1s2 rrr lungs coarse BS bilaterally abd soft nt tr edema aaox3, mild right upper ext. weakness almost completely resolved, chr. right foot drop acute left frontal stinson radiata CVA morbid obesity NIDDM HTN fever-sp lithotrispsy known renal colic fever- uri repeat BCx pending CXR was ok iv abx as per id awaiting pt eval regarding dc planning urology f/up for stent removal as outpt tentative dc tomorrow? depoending on pt eval and id input monitor cbc echo today Problem List - Problems (1) CVA (cerebral vascular accident) Code(s): I63.9 - CEREBRAL INFARCTION, UNSPECIFIED Qualifiers: CVA mechanism: unspecified Qualified Code(s): I63.9 - Cerebral infarction, unspecified (2) UTI (urinary tract infection) Code(s): N39.0 - URINARY TRACT INFECTION, SITE NOT SPECIFIED Qualifiers: Urinary tract infection type: site unspecified Hematuria presence: without hematuria Qualified Code(s): N39.0 - Urinary tract infection, site not specified (3) Diabetes mellitus Code(s): E11.9 - TYPE 2 DIABETES MELLITUS WITHOUT COMPLICATIONS Qualifiers: Diabetes mellitus type: type 2 Diabetes mellitus half-way insulin use: without terminal computer operator use Diabetes mellitus complication status: with other specified complication Qualified Code(s): E11.69 - Type 2 diabetes mellitus with other specified complication (4) Hypertension Code(s): I10 - ESSENTIAL (PRIMARY) HYPERTENSION Qualifiers: Hypertension type: essential hypertension Qualified Code(s): I10 - Essential (primary) hypertension (5) Obesity Code(s): E66.9 - OBESITY, UNSPECIFIED Qualifiers: Obesity type: due to excess calories Body mass index: BMI 50.0-59.9 (6) T2DM (type 2 diabetes mellitus) Code(s): E11.9 - TYPE 2 DIABETES MELLITUS WITHOUT COMPLICATIONS Qualifiers: Diabetes mellitus terminal computer operator insulin use: without terminal computer operator use Diabetes mellitus complication status: with neurologic complications Diabetes mellitus complication detail: with other neurological complication Qualified Code(s): E11.49 - Type 2 diabetes mellitus with other diabetic neurological complication
--- NOTE | 2019-05-13 11:11 | ECHO ---
Version: 1 Name: BETTY PORTER Exam: Adult Echocardiogram Study Date: 05/13/2019, 10:23 AM Age: 68 Years MMode/2D Measurements & Calculations IVSd: 1.10 cm LVIDs: 3.2 cm LVIDd: 4.3 cm LVPWd: 1.38 cm ACS: 2.07 cm Ao root diam: 3.1 cm LVOT diam: 1.64 cm LA dimension: 3.7 cm Doppler Measurements & Calculations MV E max maurizio: 93.8 cm/sec MVA(VTI): 2.07 cm MV A max maurizio: 107.6 cm/sec MV V2 max: 108.1 cm/sec MV mean P.47 mmHg MV max P.7 mmHg MV E/A: 0.87 Med E/e': 18.2 Lat E/e': 12.7 Med Peak E' Maurizio: 5.2 cm/sec Lat Peak E' Maurizio: 7.4 cm/sec MR max P.2 mmHg Ao max P.6 mmHg ERIC(I,D): 1.21 cm Ao mean P.7 mmHg LV V1 mean: 70.6 cm/sec Ao V2 max: 162.9 cm/sec LV V1 mean P.30 mmHg TR max maurizio: 173.9 cm/sec TR max P.1 mmHg Procedure The study was technically difficult with many images being suboptimal in quality. Left Ventricle The left ventricular size, thickness and function are normal. Ejection Fraction = 55%. Grade I diast olic dysfunction, (abnormal relaxation pattern). Right Ventricle The right ventricle is normal in size and function. Atria Normal left and right atrial size and function. Mitral Valve The mitral valve is normal in structure and function. Tricuspid Valve The tricuspid valve is normal in structure and function. There is trace tricuspid regurgitation. Aortic Valve The aortic valve is not well visualized. No hemodynamically significant valvular aortic stenosis. Pulmonic Valve The pulmonic valve is not well visualized. Great Vessels The aortic root is normal size. Pericardium/Pleura There is no pericardial effusion. Summary Statements The study was technically difficult. The left ventricular size, thickness and function are normal. Grade I diastolic dysfunction, (abnorm al relaxation pattern). The right ventricle is normal in size and function. The aortic valve is not well visualized. No hemodynamically significant valvular aortic stenosis. Eleazar Kingston 05/13/2019, 11:11 AM Ordering Physician: Amaris Rosales Performed By: Anne Villanueva
[2019-05-13] MEDS ORDERED: valACYclovir HCL 1000 MG TABLET PO SCH (11:15)
[2019-05-13] MEDS ORDERED: valACYclovir HCL 500 MG TABLET (FP) PO SCH (11:15)
[2019-05-13 11:46] LABS: ANISOCYTOSIS 1+; MACROCYTOSIS 0; PLATELET ESTIMATE NORMAL
[2019-05-13] MEDS: ENOXAPARIN NA (PORCINE) 40 MG/0.4 ML DISP.SYRIN SQ SCH (11:49)
[2019-05-13] MEDS: FAMOTIDINE 20 MG TABLET PO SCH (11:51)
[2019-05-13] MEDS: GABAPENTIN 300 MG CAPSULE PO SCH ×2 (11:51→21:35)
[2019-05-13] MEDS: amLODIPine BESYLATE 10 MG TABLET (FP) PO SCH (11:51)
[2019-05-13] MEDS: ASPIRIN COATED 81 MG TABLET.EC PO SCH (11:51)
[2019-05-13] MEDS: ALLOPURINOL 300 MG TABLET (FP) PO SCH (11:51)
[2019-05-13] MEDS: MAGNESIUM OXIDE 400 MG TABLET (FP) PO SCH (11:52)
--- NOTE | 2019-05-13 13:05 | PN ---
Progress Note, Physician - Current Medication List Current Medications: Active Medications Acetaminophen (Tylenol -) 650 mg PO Q6H PRN PRN Reason: PAIN LEVEL 7 - 10 Last Admin: 05/13/19 11:48 Dose: 650 mg Allopurinol (Zyloprim -) 300 mg PO DAILY [facility] Last Admin: 05/13/19 11:51 Dose: 300 mg Alprazolam (Xanax -) 0.5 mg PO BID PRN PRN Reason: ANXIETY Last Admin: 05/11/19 22:23 Dose: 0.5 mg Amlodipine Besylate (Norvasc -) 10 mg PO DAILY [facility] Last Admin: 05/13/19 11:51 Dose: 10 mg Aspirin (Ecotrin -) 81 mg PO DAILY [facility] Last Admin: 05/13/19 11:51 Dose: 81 mg Atorvastatin Calcium (Lipitor -) 40 mg PO HS [facility] Last Admin: 05/12/19 22:33 Dose: 40 mg Enoxaparin Sodium (Lovenox -) 40 mg SQ DAILY [facility] Last Admin: 05/13/19 11:49 Dose: 40 mg Famotidine (Pepcid -) 20 mg PO DAILY [facility] Last Admin: 05/13/19 11:51 Dose: 20 mg Gabapentin (Neurontin -) 300 mg PO BID [facility] Last Admin: 05/13/19 11:51 Dose: 300 mg Guaifenesin (Robitussin Dm -) 10 ml PO Q6H PRN PRN Reason: COUGH Last Admin: 05/12/19 22:46 Dose: 10 ml Cefepime HCl 1 gm/ Dextrose 100 mls @ 100 mls/hr IVPB Q8H-IV [facility]; Protocol Last Admin: 05/13/19 11:00 Dose: 100 mls/hr Magnesium Oxide (Mag-Ox -) 400 mg PO DAILY [facility] Last Admin: 05/13/19 11:52 Dose: 400 mg Metformin HCl (Glucophage -) 1,000 mg PO AM [facility] Last Admin: 05/13/19 05:59 Dose: 1,000 mg Sitagliptin Phosphate (Januvia -) 50 mg PO ACBK [facility] Last Admin: 05/13/19 05:59 Dose: 50 mg Valacyclovir HCl (Valtrex -) 2,000 mg PO BID [facility] Stop: 05/13/19 23:59 Zolpidem Tartrate (Ambien -) 5 mg PO HS PRN PRN Reason: INSOMNIA Last Admin: 05/13/19 00:42 Dose: 5 mg - Objective Vital Signs: Vital Signs Temperature 99.6 F 05/13/19 06:00 Pulse Rate 76 05/13/19 06:00 Respiratory Rate 05/13/19 06:00 Blood Pressure 129/58 L 05/13/19 06:00 O2 Sat by Pulse Oximetry (%) 94 L 05/12/19 20:44 Labs: CBC, BMP 05/13/19 06:35 05/13/19 06:35
[2019-05-13] MEDS: guaiFENesin/D-METHORPHAN HB 10 ML UNIT-DOSE CUPS PO PRN (14:28)
[2019-05-13] MEDS: ATORVASTATIN CA 40 MG TABLET (FP) PO SCH (21:35)
[2019-05-13] MEDS ORDERED: PT OWN MED DRAWER 7, Y5N ONE (21:38)
[2019-05-14] MEDS ORDERED: CEFEPIME HCL 1 GM VIAL (RESTRICTED TO ID) ONE ×3 (00:43→17:24)
[2019-05-14] MEDS ORDERED: DEXTROSE 5%-WATER 100 ML IVPB ONE ×3 (00:44→17:24)
[2019-05-14] MEDS: CEFEPIME 1 GM in DEXTROSE 5%-WATER 100 ML IVPB SCH ×3 (01:00→17:26)
[2019-05-14] MEDS: guaiFENesin/D-METHORPHAN HB 10 ML UNIT-DOSE CUPS PO PRN ×3 (02:22→23:04)
[2019-05-14] MEDS: sitaGLIPtin PHOSPHATE 50 MG TABLET PO SCH (06:03)
[2019-05-14] MEDS: ACETAMINOPHEN 325 MG TABLET (FP) PO PRN ×2 (06:03→16:24)
[2019-05-14] MEDS: metFORMIN HCL 500 MG TABLET (FP) PO SCH (06:03)
[2019-05-14 08:22] LABS: BASO % 0.6 % (0-2.0); HEMATOCRIT 31.8 % (32.4-45.2); HEMOGLOBIN 10.3 GM/dL (10.7-15.3); LYMPH % 19.3 % (8-40); MCH 25.7 pg (25.7-33.7); MCHC 32.3 g/dl (32.0-36.0); MEAN CELL VOLUME 79.8 fl (80-96); MEAN PLT VOLUME 9.6 fl (7.5-11.1); MONO % 18.3 % (3.8-10.2); NEUT % 59.8 % (42.8-82.8); PLATELET COUNT 295 K/MM3 (134-434); RBC 3.99 M/mm3 (3.60-5.2); WHITE BLOOD COUNT 5.5 K/mm3 (4.0-10.0)
--- NOTE | 2019-05-14 08:26 | PN ---
Progress Note (short form) - Note Progress Note: Neurology - Primary Care Physician PCP: Amaris Rosales - Admission Chief Complaint: generalized weakness, and right arm weakness History of Present Illness: 68 YOF with obesity, HTN, NIDDM, nephrolithiasis, gallstone, samreen en y gastric bypass (2002), recurrent UTI/E. coli urosepsis and bacteremia, obsructed stones c/b infection s/p lithotripsy and stenting (last performed on 05/01/[address] Reed) discharged earlier this month for urosepsis/infected ureteral stone on augmentin, which she was taking after UTI/obstructed stone s/p stenting. One week of abx inpatient, transitioned to augmentin x since 05/05/19, has two more doses left skipped on day of admission due to her doctor's recs due to the weakness. Presenting on day of admission with generalized weakness x 1 week, but worse beginning on the day before admission. +difficult walking, she noted her right upper arm was weaker and she could not lift it or get out of bed, beginning about late afternoon to "middle of the night" on day before admission. She was unable to provide an exact time but >12-24 hours before day of admission. She stated RLE pain and swelling, worse than left no fall or trauma. Denies fever, chills, chest pain, SOB, palpitation, dizziness, N, V, D, abdominal pain, bladder and bowel problems, paresthesias, leg swelling/pain, rash. Ct of head completed and demonstrated possible small subtle acute nonhemorrhagic infarct within the left frontal stinson radiata. Carotid ultrasound also performed and showed mild atherosclerotic plaque with no hemodinamically stenosis. Lower extremities venous doppler reviewed and showed no DVT identified. MRI brain ordered and awaiting completion, patient reports having rods and therefore MRI may not be feasible. Explained to patient that CVA likely eitology to her weakness. She complains of pain and explained this is not likely from CVA. Was not taking ASA at home, advised ASA 81mg daily. Reports being on celebrex which I researched and dose of ASA > 325 would not be advised and 81mg ASA should be acceptable. LDL appropriate at 84. Patient also on ceftriaxone for possible UTI and patient was inquiring if her weakness may improve with this medication which I informed hher that generalized improvement in strength may occur with antibiotics, she seems to complain more of generalized weakness rather than focal. 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 Possibly time for discharge planning, we'll defer to primary care physician as well as cyanide case hardener. Patient interested in going home with physical therapy, less interested in short-term rehabilitation although she does still have difficulty with getting from seated to standing and ambulation. Active Medications Acetaminophen (Tylenol -) 650 mg PO Q6H PRN PRN Reason: PAIN LEVEL 7 - 10 Last Admin: 05/14/19 06:03 Dose: 650 mg Allopurinol (Zyloprim -) 300 mg PO DAILY [facility] [place] Last Admin: 05/13/19 11:51 Dose: 300 mg Alprazolam (Xanax -) 0.5 mg PO BID PRN PRN Reason: ANXIETY Last Admin: 05/11/19 22:23 Dose: 0.5 mg Amlodipine Besylate (Norvasc -) 10 mg PO DAILY [facility] [place] Last Admin: 05/13/19 11:51 Dose: 10 mg Aspirin (Ecotrin -) 81 mg PO DAILY [facility] [place] Last Admin: 05/13/19 11:51 Dose: 81 mg Atorvastatin Calcium (Lipitor -) 40 mg PO HS [facility] [place] Last Admin: 05/13/19 21:35 Dose: 40 mg Enoxaparin Sodium (Lovenox -) 40 mg SQ DAILY [facility] [place] Last Admin: 05/13/19 11:49 Dose: 40 mg Famotidine (Pepcid -) 20 mg PO DAILY [facility] [place] Last Admin: 05/13/19 11:51 Dose: 20 mg Gabapentin (Neurontin -) 300 mg PO BID [facility] [place] Last Admin: 05/13/19 21:35 Dose: 300 mg Guaifenesin (Robitussin Dm -) 10 ml PO Q6H PRN PRN Reason: COUGH Last Admin: 05/14/19 02:22 Dose: 10 ml Cefepime HCl 1 gm/ Dextrose 100 mls @ 100 mls/hr IVPB Q8H-IV [facility]; Protocol Last Admin: 05/14/19 01:00 Dose: 100 mls/hr Magnesium Oxide (Mag-Ox -) 400 mg PO DAILY [facility] [place] Last Admin: 05/13/19 11:52 Dose: 400 mg Metformin HCl (Glucophage -) 1,000 mg PO AM [facility] [place] Last Admin: 05/14/19 06:03 Dose: 1,000 mg Sitagliptin Phosphate (Januvia -) 50 mg PO ACBK [facility] Last Admin: 05/14/19 06:03 Dose: 50 mg Zolpidem Tartrate (Ambien -) 5 mg PO HS PRN PRN Reason: INSOMNIA Last Admin: 05/13/19 22:55 Dose: 5 mg Physical Examination Vital Signs: Vital Signs Period Temp Pulse Resp BP Sys/Loredo Pulse Ox Last 24 Hr 98.2 F-99.9 F 77-96 - 116-159/48-90 93-95 Constitutional: Yes: Anxious, Obese Eyes: Yes: Conjunctiva Clear, EOM Intact HENT: Yes: Atraumatic, Normocephalic Neck: Yes: Supple, Trachea Midline Cardiovascular: Yes: Regular Rate and Rhythm Respiratory: Yes: CTA Bilaterally Gastrointestinal: Yes: Normal Bowel Sounds, Soft, Abdomen, Obese Renal/: Yes: WNL. No: CVA Tenderness - Left, CVA Tenderness - Right Musculoskeletal: Yes: Back Pain Edema: Yes Edema: LLE: 1+, RLE: 2+ Peripheral Pulses WNL: Yes Neurological: Yes: Oriented (x3), RUE 5-/5, RLE 5-/5, Sensory intact, gait antalgic, finger to nose intact Psychiatric: Yes: WNL Labs: CBCD WBC 5.9 K/mm3 (4.0-10.0) 05/13/19 06:35 RBC 3.81 M/mm3 (3.60-5.2) 05/13/19 06:35 Hgb 9.8 GM/dL (10.7-15.3) L 05/13/19 06:35 Hct 30.3 % (32.4-45.2) L 05/13/19 06:35 MCV 79.6 fl (80-96) L 05/13/19 06:35 MCHC 32.3 g/dl (32.0-36.0) 05/13/19 06:35 RDW 16.8 % (11.6-15.6) H 05/13/19 06:35 Plt Count 283 K/MM3 (134-434) 05/13/19 06:35 MPV 9.2 fl (7.5-11.1) 05/13/19 06:35 CMP Sodium 137 mmol/L (136-145) 05/13/19 06:35 Potassium 3.8 mmol/L (3.5-5.1) 05/13/19 06:35 Chloride 104 mmol/L (98-107) 05/13/19 06:35 Carbon Dioxide 26 mmol/L (21-32) 05/13/19 06:35 Anion Gap 8 MMOL/L (8-16) 05/13/19 06:35 BUN 17.8 mg/dL (7-18) 05/13/19 06:35 Creatinine 1.4 mg/dL (0.55-1.3) H 05/13/19 06:35 Random Glucose 141 mg/dL (74-106) H 05/13/19 06:35 Calcium 8.4 mg/dL (8.5-10.1) L 05/13/19 06:35 Total Bilirubin 0.6 mg/dL (0.2-1) 05/13/19 06:35 AST 27 U/L (15-37) 05/13/19 06:35 ALT 24 U/L (13-61) 05/13/19 06:35 Alkaline Phosphatase 70 U/L (45-117) 05/13/19 06:35 Total Protein 6.0 g/dl (6.4-8.2) L 05/13/19 06:35 Albumin 3.0 g/dl (3.4-5.0) L 05/13/19 06:35 CARDIAC ENZYMES Creatine Kinase 74 U/L (26-192) 05/09/19 14:40 Troponin I < 0.02 ng/ml (0.00-0.05) 05/09/19 14:40 Assessment/Plan 68 YOF with obesity, HTN, NIDDM, nephrolithiasis, gallstone, samreen en y gastric bypass (2002), recurrent UTI/E. coli urosepsis and bacteremia, obsructed stones c/b infection s/p lithotripsy and stenting (last performed on 05/01/[address] Reed) discharged earlier this month for urosepsis/infected ureteral stone on augmentin, which she was taking after UTI/obstructed stone s/p stenting. One week of abx inpatient, transitioned to augmentin x since 05/05/19, has two more doses left skipped on day of admission due to her doctor's recs due to the weakness. Ppresenting on day of admission with generalized weakness x 1 week, but worse beginning on the day before admission. +difficult walking, she noted her right upper arm was weaker and she could not lift it or get out of bed, beginning about late afternoon to "middle of the night" on day before admission. She was unable to provide an exact time but >12-24 hours before day of admission. She stated RLE pain and swelling, worse than left no fall or trauma. Denies fever, chills, chest pain, SOB, palpitation, dizziness, N, V, D, abdominal pain, bladder and bowel problems, paresthesias, leg swelling/pain, rash. Ct of head completed and demonstrated possible small subtle acute nonhemorrhagic infarct within the left frontal stinson radiata. Carotid ultrasound also performed and showed mild atherosclerotic plaque with no hemodinamically stenosis. Lower extremities venous doppler reviewed and showed no DVT identified. MRI brain ordered and awaiting completion. Explained to patient that CVA likely eitology to her weakness. She complains of pain and explained this is not likely from CVA. Was not taking ASA at home, advised ASA 81mg daily. Reports being on celebrex which I researched and dose of ASA > 325 would not be advised and 81mg ASA should be acceptable. Patient also on ceftriaxone for possible UTI and patient was inquiring if her weakness may improve with this medication which I informed hher that generalized improvement in strength may occur with antibiotics, she seems to complain more of generalized weakness rather than focal. 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 Possibly time for discharge planning, we'll defer to primary care physician as well as cyanide case hardener. Patient interested in going home with physical therapy, less interested in short-term rehabilitation although she does still have difficulty with getting from seated to standing and ambulation. MOnitor blood pressure, maintain normotensive range. PT/OT would be of benefit, short term rehab may be indicated, though outpatient physical therapy may also be sufficient. Fall precautions. Should follow up with me in office as outpatient in 2-4 weeks.
[2019-05-14 08:36] LABS: ALBUMIN 3.1 g/dl (3.4-5.0); BILIRUBIN,TOTAL 0.5 mg/dL (0.2-1); BLOOD UREA NITROGEN 21.7 mg/dL (7-18); CALCIUM 8.4 mg/dL (8.5-10.1); CREATININE 1.5 mg/dL (0.55-1.3); TOT PROT 6.3 g/dl (6.4-8.2)
[2019-05-14] MEDS: ALLOPURINOL 300 MG TABLET (FP) PO SCH (09:57)
[2019-05-14] MEDS: ASPIRIN COATED 81 MG TABLET.EC PO SCH (09:57)
[2019-05-14] MEDS: amLODIPine BESYLATE 10 MG TABLET (FP) PO SCH (09:57)
[2019-05-14] MEDS: GABAPENTIN 300 MG CAPSULE PO SCH ×2 (09:58→21:38)
[2019-05-14] MEDS: ENOXAPARIN NA (PORCINE) 40 MG/0.4 ML DISP.SYRIN SQ SCH (09:58)
[2019-05-14] MEDS: MAGNESIUM OXIDE 400 MG TABLET (FP) PO SCH (09:58)
[2019-05-14] MEDS: FAMOTIDINE 20 MG TABLET PO SCH (09:58)
--- NOTE | 2019-05-14 11:20 | PN ---
Progress Note, Physician - Current Medication List Current Medications: Active Medications Acetaminophen (Tylenol -) 650 mg PO Q6H PRN PRN Reason: PAIN LEVEL 7 - 10 Last Admin: 05/14/19 06:03 Dose: 650 mg Allopurinol (Zyloprim -) 300 mg PO DAILY [facility] Last Admin: 05/14/19 09:57 Dose: 300 mg Alprazolam (Xanax -) 0.5 mg PO BID PRN PRN Reason: ANXIETY Last Admin: 05/11/19 22:23 Dose: 0.5 mg Amlodipine Besylate (Norvasc -) 10 mg PO DAILY [facility] Last Admin: 05/14/19 09:57 Dose: 10 mg Aspirin (Ecotrin -) 81 mg PO DAILY [facility] Last Admin: 05/14/19 09:57 Dose: 81 mg Atorvastatin Calcium (Lipitor -) 40 mg PO HS [facility] Last Admin: 05/13/19 21:35 Dose: 40 mg Enoxaparin Sodium (Lovenox -) 40 mg SQ DAILY [facility] Last Admin: 05/14/19 09:58 Dose: 40 mg Famotidine (Pepcid -) 20 mg PO DAILY [facility] Last Admin: 05/14/19 09:58 Dose: 20 mg Gabapentin (Neurontin -) 300 mg PO BID [facility] Last Admin: 05/14/19 09:58 Dose: 300 mg Guaifenesin (Robitussin Dm -) 10 ml PO Q6H PRN PRN Reason: COUGH Last Admin: 05/14/19 02:22 Dose: 10 ml Cefepime HCl 1 gm/ Dextrose 100 mls @ 100 mls/hr IVPB Q8H-IV [facility]; Protocol Last Admin: 05/14/19 09:58 Dose: 100 mls/hr Magnesium Oxide (Mag-Ox -) 400 mg PO DAILY [facility] Last Admin: 05/14/19 09:58 Dose: 400 mg Metformin HCl (Glucophage -) 1,000 mg PO AM [facility] Last Admin: 05/14/19 06:03 Dose: 1,000 mg Sitagliptin Phosphate (Januvia -) 50 mg PO ACBK [facility] Last Admin: 05/14/19 06:03 Dose: 50 mg Zolpidem Tartrate (Ambien -) 5 mg PO HS PRN PRN Reason: INSOMNIA Last Admin: 05/13/19 22:55 Dose: 5 mg - Objective Vital Signs: Vital Signs Temperature 97.9 F 05/14/19 10:00 Pulse Rate 89 05/14/19 10:00 Respiratory Rate 20 05/14/19 10:00 Blood Pressure 126/84 05/14/19 10:00 O2 Sat by Pulse Oximetry (%) 96 05/14/19 09:00 Labs: CBC, BMP 05/14/19 06:15 05/14/19 06:15
--- NOTE | 2019-05-14 14:06 | PN ---
Progress Note (short form) - Note Progress Note: admitted for acute CVA CBC, BMP 05/14/19 06:15 05/14/19 06:15 Vital Signs Period Temp Pulse Resp BP Sys/Loredo Pulse Ox Last 24 Hr 97.9 F-99.3 F 77-91 - 116-159/48-84 95-96 echo reviewed-ok afebrile, but has a cough s1s2 rrr lungs coarse BS bilaterally abd soft nt tr edema aaox3, mild right upper ext. weakness almost completely resolved, chr. right foot drop acute left frontal stinson radiata CVA morbid obesity NIDDM HTN fever-sp lithotrispsy known renal colic fever- uri repeat BCx neg.so far CXR was ok iv abx as per id awaiting pt eval regarding dc planning urology f/up for stent removal as outpt on Sunday tentative dc as per id input Problem List - Problems (1) CVA (cerebral vascular accident) Code(s): I63.9 - CEREBRAL INFARCTION, UNSPECIFIED Qualifiers: CVA mechanism: unspecified Qualified Code(s): I63.9 - Cerebral infarction, unspecified (2) UTI (urinary tract infection) Code(s): N39.0 - URINARY TRACT INFECTION, SITE NOT SPECIFIED Qualifiers: Urinary tract infection type: site unspecified Hematuria presence: without hematuria Qualified Code(s): N39.0 - Urinary tract infection, site not specified (3) Diabetes mellitus Code(s): E11.9 - TYPE 2 DIABETES MELLITUS WITHOUT COMPLICATIONS Qualifiers: Diabetes mellitus type: type 2 Diabetes mellitus salvage determiner insulin use: without salvage determiner use Diabetes mellitus complication status: with other specified complication Qualified Code(s): E11.69 - Type 2 diabetes mellitus with other specified complication (4) Hypertension Code(s): I10 - ESSENTIAL (PRIMARY) HYPERTENSION Qualifiers: Hypertension type: essential hypertension Qualified Code(s): I10 - Essential (primary) hypertension (5) Obesity Code(s): E66.9 - OBESITY, UNSPECIFIED Qualifiers: Obesity type: due to excess calories Body mass index: BMI 50.0-59.9 (6) T2DM (type 2 diabetes mellitus) Code(s): E11.9 - TYPE 2 DIABETES MELLITUS WITHOUT COMPLICATIONS Qualifiers: Diabetes mellitus salvage determiner insulin use: without assisted use Diabetes mellitus complication status: with neurologic complications Diabetes mellitus complication detail: with other neurological complication Qualified Code(s): E11.49 - Type 2 diabetes mellitus with other diabetic neurological complication
[2019-05-14] MEDS: ATORVASTATIN CA 40 MG TABLET (FP) PO SCH (21:38)
[2019-05-14] MEDS: ZOLPIDEM TARTRATE 5 MG TABLET PO PRN (23:02)
[2019-05-15] MEDS ORDERED: DEXTROSE 5%-WATER 100 ML IVPB ONE ×2 (00:50→09:32)
[2019-05-15] MEDS ORDERED: CEFEPIME HCL 1 GM VIAL (RESTRICTED TO ID) ONE ×2 (00:50→09:31)
[2019-05-15] MEDS: CEFEPIME 1 GM in DEXTROSE 5%-WATER 100 ML IVPB SCH ×2 (01:03→11:30)
[2019-05-15] MEDS: ACETAMINOPHEN 325 MG TABLET (FP) PO PRN ×2 (01:49→13:35)
[2019-05-15] MEDS: sitaGLIPtin PHOSPHATE 50 MG TABLET PO SCH (05:59)
[2019-05-15] MEDS: guaiFENesin/D-METHORPHAN HB 10 ML UNIT-DOSE CUPS PO PRN ×3 (06:00→21:11)
[2019-05-15] MEDS: metFORMIN HCL 500 MG TABLET (FP) PO SCH (06:00)
--- NOTE | 2019-05-15 08:43 | PN ---
Progress Note (short form) - Note Progress Note: Neurology - Primary Care Physician PCP: Amaris Rosales - Admission Chief Complaint: generalized weakness, and right arm weakness History of Present Illness: 68 YOF with obesity, HTN, NIDDM, nephrolithiasis, gallstone, samreen en y gastric bypass (2002), recurrent UTI/E. coli urosepsis and bacteremia, obsructed stones c/b infection s/p lithotripsy and stenting (last performed on 05/01/[address] Reed) discharged earlier this month for urosepsis/infected ureteral stone on augmentin, which she was taking after UTI/obstructed stone s/p stenting. One week of abx inpatient, transitioned to augmentin x since 05/05/19, has two more doses left skipped on day of admission due to her doctor's recs due to the weakness. Presenting on day of admission with generalized weakness x 1 week, but worse beginning on the day before admission. +difficult walking, she noted her right upper arm was weaker and she could not lift it or get out of bed, beginning about late afternoon to "middle of the night" on day before admission. She was unable to provide an exact time but >12-24 hours before day of admission. She stated RLE pain and swelling, worse than left no fall or trauma. Denies fever, chills, chest pain, SOB, palpitation, dizziness, N, V, D, abdominal pain, bladder and bowel problems, paresthesias, leg swelling/pain, rash. Ct of head completed and demonstrated possible small subtle acute nonhemorrhagic infarct within the left frontal stinson radiata. Carotid ultrasound also performed and showed mild atherosclerotic plaque with no hemodinamically stenosis. Lower extremities venous doppler reviewed and showed no DVT identified. MRI brain ordered and awaiting completion, patient reports having rods and therefore MRI may not be feasible. Explained to patient that CVA likely eitology to her weakness. She complains of pain and explained this is not likely from CVA. Was not taking ASA at home, advised ASA 81mg daily. Reports being on celebrex which I researched and dose of ASA > 325 would not be advised and 81mg ASA should be acceptable. LDL appropriate at 84. Patient also on ceftriaxone for possible UTI and patient was inquiring if her weakness may improve with this medication which I informed hher that generalized improvement in strength may occur with antibiotics, she seems to complain more of generalized weakness rather than focal. 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 Patient for discharge today, seen at bedside with primary care physicianand no new complaints. Advised outpatient physical therapy which is likely to be coordinated with visiting nurse service and will be done at home, no objection to this. Advised outpatient follow-up in my office in 2-4 weeks. Active Medications Acetaminophen (Tylenol -) 650 mg PO Q6H PRN PRN Reason: PAIN LEVEL 7 - 10 Last Admin: 05/15/19 01:49 Dose: 650 mg Allopurinol (Zyloprim -) 300 mg PO DAILY [facility] Last Admin: 05/14/19 09:57 Dose: 300 mg Alprazolam (Xanax -) 0.5 mg PO BID PRN PRN Reason: ANXIETY Last Admin: 05/11/19 22:23 Dose: 0.5 mg Amlodipine Besylate (Norvasc -) 10 mg PO DAILY [facility] Last Admin: 05/14/19 09:57 Dose: 10 mg Aspirin (Ecotrin -) 81 mg PO DAILY [facility] Last Admin: 05/14/19 09:57 Dose: 81 mg Atorvastatin Calcium (Lipitor -) 40 mg PO HS [facility] Last Admin: 05/14/19 21:38 Dose: 40 mg Enoxaparin Sodium (Lovenox -) 40 mg SQ DAILY [facility] Last Admin: 05/14/19 09:58 Dose: 40 mg Famotidine (Pepcid -) 20 mg PO DAILY [facility] Last Admin: 05/14/19 09:58 Dose: 20 mg Gabapentin (Neurontin -) 300 mg PO BID [facility] Last Admin: 05/14/19 21:38 Dose: 300 mg Guaifenesin (Robitussin Dm -) 10 ml PO Q6H PRN PRN Reason: COUGH Last Admin: 05/15/19 06:00 Dose: 10 ml Cefepime HCl 1 gm/ Dextrose 100 mls @ 100 mls/hr IVPB Q8H-IV [facility]; Protocol Last Admin: 05/15/19 01:03 Dose: 100 mls/hr Magnesium Oxide (Mag-Ox -) 400 mg PO DAILY [facility] Last Admin: 05/14/19 09:58 Dose: 400 mg Metformin HCl (Glucophage -) 1,000 mg PO AM [facility] Last Admin: 05/15/19 06:00 Dose: 1,000 mg Sitagliptin Phosphate (Januvia -) 50 mg PO ACBK [facility] Last Admin: 05/15/19 05:59 Dose: 50 mg Zolpidem Tartrate (Ambien -) 5 mg PO HS PRN PRN Reason: INSOMNIA Last Admin: 05/14/19 23:02 Dose: 5 mg Physical Examination Vital Signs: Vital Signs Period Temp Pulse Resp BP Sys/Loredo Pulse Ox Last 24 Hr 97.7 F-100.7 F 71-89 20-22 123-157/66-88 95-96 Constitutional: Yes: Anxious, Obese Eyes: Yes: Conjunctiva Clear, EOM Intact HENT: Yes: Atraumatic, Normocephalic Neck: Yes: Supple, Trachea Midline Cardiovascular: Yes: Regular Rate and Rhythm Respiratory: Yes: CTA Bilaterally Gastrointestinal: Yes: Normal Bowel Sounds, Soft, Abdomen, Obese Renal/: Yes: WNL. No: CVA Tenderness - Left, CVA Tenderness - Right Musculoskeletal: Yes: Back Pain Edema: Yes Edema: LLE: 1+, RLE: 2+ Peripheral Pulses WNL: Yes Neurological: Yes: Oriented (x3), RUE 5-/5, RLE 5-/5, Sensory intact, gait antalgic, finger to nose intact Psychiatric: Yes: WNL Labs: CBCD WBC 5.5 K/mm3 (4.0-10.0) 05/14/19 06:15 RBC 3.99 M/mm3 (3.60-5.2) 05/14/19 06:15 Hgb 10.3 GM/dL (10.7-15.3) L 05/14/19 06:15 Hct 31.8 % (32.4-45.2) L 05/14/19 06:15 MCV 79.8 fl (80-96) L 05/14/19 06:15 MCHC 32.3 g/dl (32.0-36.0) 05/14/19 06:15 RDW 17.0 % (11.6-15.6) H 05/14/19 06:15 Plt Count 295 K/MM3 (134-434) 05/14/19 06:15 MPV 9.6 fl (7.5-11.1) 05/14/19 06:15 CMP Sodium 138 mmol/L (136-145) 05/14/19 06:15 Potassium 4.0 mmol/L (3.5-5.1) 05/14/19 06:15 Chloride 104 mmol/L (98-107) 05/14/19 06:15 Carbon Dioxide 25 mmol/L (21-32) 05/14/19 06:15 Anion Gap 9 MMOL/L (8-16) 05/14/19 06:15 BUN 21.7 mg/dL (7-18) H 05/14/19 06:15 Creatinine 1.5 mg/dL (0.55-1.3) H 05/14/19 06:15 Random Glucose 133 mg/dL (74-106) H 05/14/19 06:15 Calcium 8.4 mg/dL (8.5-10.1) L 05/14/19 06:15 Total Bilirubin 0.5 mg/dL (0.2-1) 05/14/19 06:15 AST 26 U/L (15-37) 05/14/19 06:15 ALT 24 U/L (13-61) 05/14/19 06:15 Alkaline Phosphatase 73 U/L (45-117) 05/14/19 06:15 Total Protein 6.3 g/dl (6.4-8.2) L 05/14/19 06:15 Albumin 3.1 g/dl (3.4-5.0) L 05/14/19 06:15 CARDIAC ENZYMES Creatine Kinase 74 U/L (26-192) 05/09/19 14:40 Troponin I < 0.02 ng/ml (0.00-0.05) 05/09/19 14:40 Assessment/Plan 68 YOF with obesity, HTN, NIDDM, nephrolithiasis, gallstone, samreen en y gastric bypass (2002), recurrent UTI/E. coli urosepsis and bacteremia, obsructed stones c/b infection s/p lithotripsy and stenting (last performed on 05/01/[address] Reed) discharged earlier this month for urosepsis/infected ureteral stone on augmentin, which she was taking after UTI/obstructed stone s/p stenting. One week of abx inpatient, transitioned to augmentin x since 05/05/19, has two more doses left skipped on day of admission due to her doctor's recs due to the weakness. Ppresenting on day of admission with generalized weakness x 1 week, but worse beginning on the day before admission. +difficult walking, she noted her right upper arm was weaker and she could not lift it or get out of bed, beginning about late afternoon to "middle of the night" on day before admission. She was unable to provide an exact time but >12-24 hours before day of admission. She stated RLE pain and swelling, worse than left no fall or trauma. Denies fever, chills, chest pain, SOB, palpitation, dizziness, N, V, D, abdominal pain, bladder and bowel problems, paresthesias, leg swelling/pain, rash. Ct of head completed and demonstrated possible small subtle acute nonhemorrhagic infarct within the left frontal stinson radiata. Carotid ultrasound also performed and showed mild atherosclerotic plaque with no hemodinamically stenosis. Lower extremities venous doppler reviewed and showed no DVT identified. MRI brain ordered and awaiting completion. Explained to patient that CVA likely eitology to her weakness. She complains of pain and explained this is not likely from CVA. Was not taking ASA at home, advised ASA 81mg daily. Reports being on celebrex which I researched and dose of ASA > 325 would not be advised and 81mg ASA should be acceptable. Patient also on ceftriaxone for possible UTI and patient was inquiring if her weakness may improve with this medication which I informed hher that generalized improvement in strength may occur with antibiotics, she seems to complain more of generalized weakness rather than focal. 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 Patient for discharge today, seen at bedside with primary care physicianand no new complaints. Advised outpatient physical therapy which is likely to be coordinated with visiting nurse service and will be done at home, no objection to this. Advised outpatient follow-up in my office in 2-4 weeks.
[2019-05-15] MEDS: ALLOPURINOL 300 MG TABLET (FP) PO SCH (10:24)
[2019-05-15] MEDS: MAGNESIUM OXIDE 400 MG TABLET (FP) PO SCH (10:24)
[2019-05-15] MEDS: ENOXAPARIN NA (PORCINE) 40 MG/0.4 ML DISP.SYRIN SQ SCH (10:24)
[2019-05-15] MEDS: GABAPENTIN 300 MG CAPSULE PO SCH ×2 (10:24→21:11)
[2019-05-15] MEDS: ASPIRIN COATED 81 MG TABLET.EC PO SCH (10:24)
[2019-05-15] MEDS: FAMOTIDINE 20 MG TABLET PO SCH (10:25)
[2019-05-15] MEDS ORDERED: PT OWN MED DRAWER 7, Y5N ONE (10:26)
[2019-05-15] MEDS: amLODIPine BESYLATE 10 MG TABLET (FP) PO SCH (10:27)
--- NOTE | 2019-05-15 11:57 | PN ---
Progress Note, Physician History of Present Illness: doing well no issues - Current Medication List Current Medications: Active Medications Acetaminophen (Tylenol -) 650 mg PO Q6H PRN PRN Reason: PAIN LEVEL 7 - 10 Last Admin: 05/15/19 01:49 Dose: 650 mg Allopurinol (Zyloprim -) 300 mg PO DAILY [facility] Last Admin: 05/15/19 10:24 Dose: 300 mg Alprazolam (Xanax -) 0.5 mg PO BID PRN PRN Reason: ANXIETY Last Admin: 05/11/19 22:23 Dose: 0.5 mg Amlodipine Besylate (Norvasc -) 10 mg PO DAILY [facility] Last Admin: 05/15/19 10:27 Dose: 10 mg Aspirin (Ecotrin -) 81 mg PO DAILY [facility] Last Admin: 05/15/19 10:24 Dose: 81 mg Atorvastatin Calcium (Lipitor -) 40 mg PO HS [facility] Last Admin: 05/14/19 21:38 Dose: 40 mg Enoxaparin Sodium (Lovenox -) 40 mg SQ DAILY [facility] Last Admin: 05/15/19 10:24 Dose: 40 mg Famotidine (Pepcid -) 20 mg PO DAILY [facility] Last Admin: 05/15/19 10:25 Dose: 20 mg Gabapentin (Neurontin -) 300 mg PO BID [facility] Last Admin: 05/15/19 10:24 Dose: 300 mg Guaifenesin (Robitussin Dm -) 10 ml PO Q6H PRN PRN Reason: COUGH Last Admin: 05/15/19 06:00 Dose: 10 ml Cefepime HCl 1 gm/ Dextrose 100 mls @ 100 mls/hr IVPB Q8H-IV YADIRA; Protocol Last Admin: 05/15/19 11:30 Dose: 100 mls/hr Magnesium Oxide (Mag-Ox -) 400 mg PO DAILY [facility] Last Admin: 05/15/19 10:24 Dose: 400 mg Metformin HCl (Glucophage -) 1,000 mg PO AM [facility] Last Admin: 05/15/19 06:00 Dose: 1,000 mg Sitagliptin Phosphate (Januvia -) 50 mg PO ACBK [facility] Last Admin: 05/15/19 05:59 Dose: 50 mg Zolpidem Tartrate (Ambien -) 5 mg PO HS PRN PRN Reason: INSOMNIA Last Admin: 05/14/19 23:02 Dose: 5 mg - Objective Vital Signs: Vital Signs Temperature 97.7 F 05/15/19 09:39 Pulse Rate 89 05/15/19 09:39 Respiratory Rate 22 H 05/15/19 09:39 Blood Pressure 140/96 05/15/19 09:39 O2 Sat by Pulse Oximetry (%) 96 05/15/19 09:00 Constitutional: Yes: No Distress, Calm Cardiovascular: Yes: S1, S2 Respiratory: Yes: Regular, CTA Bilaterally Gastrointestinal: Yes: Normal Bowel Sounds, Soft Musculoskeletal: Yes: WNL Extremities: Yes: WNL Neurological: Yes: Alert, Oriented Psychiatric: Yes: Alert, Oriented Labs: CBC, BMP 05/14/19 06:15 05/14/19 06:15 Assessment/Plan Problem List - Problems (1) CVA (cerebral vascular accident) Code(s): I63.9 - CEREBRAL INFARCTION, UNSPECIFIED Qualifiers: CVA mechanism: unspecified Qualified Code(s): I63.9 - Cerebral infarction, unspecified (2) UTI (urinary tract infection) Code(s): N39.0 - URINARY TRACT INFECTION, SITE NOT SPECIFIED Qualifiers: Urinary tract infection type: site unspecified Hematuria presence: without hematuria Qualified Code(s): N39.0 - Urinary tract infection, site not specified (3) Diabetes mellitus Code(s): E11.9 - TYPE 2 DIABETES MELLITUS WITHOUT COMPLICATIONS Qualifiers: Diabetes mellitus type: type 2 Diabetes mellitus shelter insulin use: without shelter use Diabetes mellitus complication status: with other specified complication Qualified Code(s): E11.69 - Type 2 diabetes mellitus with other specified complication (4) Hypertension Code(s): I10 - ESSENTIAL (PRIMARY) HYPERTENSION Qualifiers: Hypertension type: essential hypertension Qualified Code(s): I10 - Essential (primary) hypertension (5) Obesity Code(s): E66.9 - OBESITY, UNSPECIFIED Qualifiers: Obesity type: due to excess calories Body mass index: BMI 50.0-59.9 (6) Renal calculi Code(s): N20.0 - CALCULUS OF KIDNEY (7) T2DM (type 2 diabetes mellitus) Code(s): E11.9 - TYPE 2 DIABETES MELLITUS WITHOUT COMPLICATIONS Qualifiers: Diabetes mellitus keno terminal operator insulin use: without keno terminal operator use Diabetes mellitus complication status: with neurologic complications Diabetes mellitus complication detail: with other neurological complication Qualified Code(s): E11.49 - Type 2 diabetes mellitus with other diabetic neurological complication plan continue current abx can switch to oral [id number] mg po bid for 7 more days
--- NOTE | 2019-05-15 14:00 | DS ---
Physical Examination Vital Signs: Vital Signs Temperature 97.7 F 05/15/19 09:39 Pulse Rate 89 05/15/19 09:39 Respiratory Rate 22 H 05/15/19 09:39 Blood Pressure 140/96 05/15/19 09:39 O2 Sat by Pulse Oximetry (%) 96 05/15/19 09:00 Constitutional: Yes: Calm, Obese Eyes: Yes: EOM Intact HENT: Yes: Normocephalic Neck: Yes: Trachea Midline Cardiovascular: Yes: Regular Rate and Rhythm Respiratory: Yes: CTA Bilaterally Gastrointestinal: Yes: Normal Bowel Sounds, Soft, Abdomen, Obese Extremities: Yes: WNL Edema: No Neurological: Yes: WNL, Weakness (right upper extremity weakness resolved) Psychiatric: Yes: WNL Labs: CBC, BMP 05/14/19 06:15 05/14/19 06:15 Discharge Summary Problems reviewed: Yes Reason For Visit: UTI WEAKNESS Current Active Problems CVA (cerebral vascular accident) (Acute) UTI (urinary tract infection) (Acute) Weakness (Acute) Hospital Course: admitted for acute left frontal stinson radiata CVA with associated right upper ext. weakness-resolved by end of hospital stay echo, carotid us was ok, lipids are normal bp, sugars are well controlled started statin and asa fever with negative, urine and blood cultures, negative cxr but cough-uri? on iv cefepime, ok to switch to po augmentin pmh of morbid obesity, NIDDM, HTN, renal stones-sp lithotrispsy dc home with home pt Condition: Fair - Instructions Referrals: Amaris Rosales MD [Primary Care Provider] - - Home Medications Comprehensive Discharge Medication List: Ambulatory Orders Current Medications Acetaminophen (Tylenol -) 650 mg PO Q6H PRN PRN Reason: PAIN LEVEL 7 - 10 Last Admin: 05/15/19 13:35 Dose: 650 mg Allopurinol (Zyloprim -) 300 mg PO DAILY [facility] Last Admin: 05/15/19 10:24 Dose: 300 mg Alprazolam (Xanax -) 0.5 mg PO BID PRN PRN Reason: ANXIETY Last Admin: 05/11/19 22:23 Dose: 0.5 mg Amlodipine Besylate (Norvasc -) 10 mg PO DAILY [facility] Last Admin: 05/15/19 10:27 Dose: 10 mg Amoxicillin/Clavulanate Potassium (Augmentin - 500mg Tablet) 1 tab PO BID@0800, 1730 [facility] Aspirin (Ecotrin -) 81 mg PO DAILY [facility] Last Admin: 05/15/19 10:24 Dose: 81 mg Atorvastatin Calcium (Lipitor -) 40 mg PO HS [facility] Last Admin: 05/14/19 21:38 Dose: 40 mg Enoxaparin Sodium (Lovenox -) 40 mg SQ DAILY [facility] Last Admin: 05/15/19 10:24 Dose: 40 mg Famotidine (Pepcid -) 20 mg PO DAILY [facility] Last Admin: 05/15/19 10:25 Dose: 20 mg Gabapentin (Neurontin -) 300 mg PO BID [facility] Last Admin: 05/15/19 10:24 Dose: 300 mg Guaifenesin (Robitussin Dm -) 10 ml PO Q6H PRN PRN Reason: COUGH Last Admin: 05/15/19 13:35 Dose: 10 ml Magnesium Oxide (Mag-Ox -) 400 mg PO DAILY [facility] Last Admin: 05/15/19 10:24 Dose: 400 mg Metformin HCl (Glucophage -) 1,000 mg PO AM [facility] Last Admin: 05/15/19 06:00 Dose: 1,000 mg Sitagliptin Phosphate (Januvia -) 50 mg PO ACBK [facility] Last Admin: 05/15/19 05:59 Dose: 50 mg Zolpidem Tartrate (Ambien -) 5 mg PO HS PRN PRN Reason: INSOMNIA Last Admin: 05/14/19 23:02 Dose: 5 mg Prescription Drug Monitoring Program (I-STOP) results: I-STOP not reviewed
[2019-05-15] MEDS ORDERED: AMOX TR/POT CLAV 500MG/125MG TABLETS (FP) PO SCH (17:30)
[2019-05-15] MEDS: ATORVASTATIN CA 40 MG TABLET (FP) PO SCH (21:11)
[2019-05-15] MEDS: ZOLPIDEM TARTRATE 5 MG TABLET PO PRN (23:09)
[2019-05-16 02:18] VITALS: BP 144/52; PULSE 79; TEMP 99.2
[2019-05-16] MEDS: guaiFENesin/D-METHORPHAN HB 10 ML UNIT-DOSE CUPS PO PRN (03:39)
[2019-05-16] MEDS: sitaGLIPtin PHOSPHATE 50 MG TABLET PO SCH (06:27)
[2019-05-16] MEDS: metFORMIN HCL 500 MG TABLET (FP) PO SCH (06:27)
== END 2019-05-16 07:43 | disposition home health service (06) | DRG 65 ==
LOC: JER 12:24 → JERBED 17:57 → J4W 05-10 01:58
PROVIDERS: ADMIT Internal Medicine; ATTEND Internal Medicine
DX: I63.9 Cerebral infarction, unspecified (principal); N39.0 Urinary tract infection, site not specified; Z68.43 Body mass index [BMI] 50.0-59.9, adult; G81.91 Hemiplegia, unspecified affecting right dominant side; E66.01 Morbid (severe) obesity due to excess calories; I10 Essential (primary) hypertension; E11.9 Type 2 diabetes mellitus without complications; N20.0 Calculus of kidney
CPT/HCPCS: 36415; 70450-TC; 71045-TC-FY; 80053; 80061; 81003; 82550; 82962; 83721; 84484; 85025; 87040; 87086; 93005; 93010; 93306-TC; 93880-TC; 93970-TC; 97116-GP; 97161-GP; 99285-25

== ENCOUNTER → 2022-05-29 | Day surgery (SDC) | payer OTHER | END | disposition home or self-care (01) | LOC: JRADIR 09:40 | PROVIDERS: ATTEND Internal Medicine | PROC: 0G9H3ZX Drainage of Right Thyroid Gland Lobe, Percutaneous Approach, Diagnostic (ICD-10-PCS; principal; 2022-05-29) | DX: E04.1 Nontoxic single thyroid nodule (principal) | CPT/HCPCS: 10005; 76942; 88173; 88305-TC ==